=== PATIENT | female | born 1945 | race Caucasian/White ===

== ENCOUNTER 2016-02-23 13:24 | Inpatient (IN) ==
--- NOTE | 2016-02-23 13:34 | Emergency Department Note ---
Disposition Clinical Impression: HCAP (healthcare-associated pneumonia), Hyperkalemia, Hypoxia, Acute hypercapnic respiratory failure, Acute on chronic renal failure, Cellulitis of leg, left Sepsis Qualifiers: Sepsis type: sepsis due to unspecified organism Qualified Code(s): A41.9 - Sepsis, unspecified organism Disposition: Admitted As Inpatient Condition: Serious Time of Disposition: 19:01 Extremity Problem HPI - General Chief complaint: ED Fever Stated complaint: fever Time Seen by Provider: 02/23/16 13:30 Source: patient Limitations: no limitations Nursing Notes Reviewed: Yes Vital Signs Reviewed: Yes - History of Present Illness HPI Narrative: 70-year-old female presents from a custodial, history of hypercholesterolemia, recently had a fall yesterday with negative x-ray she was diagnosed with a left lower extremity cellulitis. At the time she was given a Keflex prescription told to follow-up however she did not fill the prescription. Patient had a fever or EMS her temperature was recorded at 102.1. Patient was brought in with fever, low oxygen, with no history of oxygen dependent. She is on 2 L is 92%, percent was 78% without oxygen on in the ED at triage. Patient denies shortness of breath or chest pain. Denies abdominal pain. States her left leg hurts. Has a history of frequent UTIs. Is a very limited historian secondary to her mental state. Pt Subjective Complaint: extremity pain Consistency: intermittent Injury Location: left Pain Scale: 0 Radiation: none Improves with: nothing Worsens with: nothing Associated symptoms: Reports: denies other symptoms, bowel/bladder symptoms, fever, rash, swelling (Left lower extremity). Denies: chest pain, shortness of breath, abdominal pain - Related Data Home Medications Medication Instructions Recorded Confirmed RisperiDONE [RisperDAL] 1 mg PO HS 12/20/14 12/20/14 Previous Rx's Medication Instructions Recorded Aquaphor 1 appl TP Q4HR #60 g 12/10/14 Nystatin Cream [Mycostatin Cream] 1 appl TP BID #60 g 12/10/14 Bumetanide [Bumex] 1 mg PO DAILY #30 tablet 12/31/14 RisperiDONE [RisperDAL] 1 mg PO HS #30 tablet 12/31/14 SitaGLIPtin [Januvia] 25 mg PO DAILY #30 tablet 12/31/14 Nystatin Cream [Mycostatin Cream] 1 appl TP BID #30 g 07/18/16 Cephalexin 500 mg PO BID #14 tablet 11/24/15 Cephalexin [Keflex] 500 mg PO QID 10 Days 02/22/16 Allergies Allergy/AdvReac Type Severity Reaction Status Date / Time sulfamethoxazole Allergy Rash Verified 12/26/14 03:50 [From Bactrim] trimethoprim [From Bactrim] Allergy Rash Verified 12/26/14 03:50 Review of Systems: A 14 point ROS was obtained and was negative except as per below or as documented in the HPI. Constitutional: fever, chills, weakness Denies:, weight change Eyes: Denies: eye pain, eye discharge, vision change ENT: Denies: ear pain, throat pain, hearing loss, epistaxis, congestion, Cardiovascular: Denies: chest pain, palpitations, dyspnea on exertion, edema, syncope Respiratory: Denies: cough, dyspnea, wheezes, hemoptysis, stridor Gastrointestinal: Denies: abdominal pain, nausea, vomiting. diarrhea, constipation, hematemesis, hematochezia Genitourinary: Denies: urgency, dysuria, frequency, hematuria Musculoskeletal: Denies: back pain, neck pain, arthralgia, myalgia Integumentary: left leg rash,Denies: abrasion, lesions Neurological: Denies: headache, weakness, numbness, paresthesias, confusion, abnormal gait Psychiatric: Denies: anxiety, depression, suicidal thoughts, homicidal thoughts , Endocrine: Denies: fatigue Hematological/Lymphatic: Denies: easy bleeding, easy bruising Allergic/Immunologic: Denies: facial swelling, urticaria All systems ED: reviewed and negative except as stated. Past Medical History - Past Medical History Attestation: Yes The following information was validated with the patient. 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 - Social History Smoking Status: Never smoker Smokeless Tobacco Status: No Alcohol use: Reports: none Drug use: Reports: none Physical Exam General: alert and oriented, in NAD, appears stated age, is pleasant and cooperative to exam Head: NCAT, no lesions Eyes: sclera anicteric, conjunctiva normal, PERRLA bilaterally, EOMI Bilaterally Ears: normal inspection, external ear wnl Nose: nasal septum nondeviated, sinuses nontender Throat: good dentition, mucous membranes moist Neck: no lymphadenopathy, trachea midline no deviation, no JVD Resp: Diminished breath sounds at the bases CV: RRR, normal S1 and S2, no m/g/r, Pulses +2 Rad, +2 DP/PT Abdomen: Soft, morbidly obese, nontender to palpation no hepatosplenomegaly, no hernias, Negative Rovsing's sign, Negative Oconnell's sign Back: normal inspection, no tenderness to palpation, Negative CVA tenderness bilaterally Neuro: A&O3, CN II-XII grossly intact bilaterally, no motor or sensory deficits bilaterally, gait normal, GCS 15 [id number] Ext: normal inspection, symmetric Active and Passive ROM UE and LE bilaterally , +2 pitting bilaterally Psych: normal mood, normal affect Skin: Left-sided lower extremity with anterior tibial cellulitis versus venous stasis dermatitis, skin breakdown, erythema and bruising. - General Limitations: no limitations General appearance: alert, in no apparent distress Course Course Narrative: 102.1 temperature confirmed in route. Patient is febrile, hypoxic her sat dropped to 74%, good waveform on room air. Given her hypoxia in the setting of morbid obesity and probable CHF, with venous stasis dermatitis that is in her bilateral lower extremities, but do not want to aggressively fluid overload this patient, and for that reason we will give her 2 L bolus, concern for sepsis however I do not think that she can tolerate a 30 mL per kilogram bolus which should be over 4000 L of fluid. - Reevaluation(s) Reevaluation #1: Patient with a troponin of 0.28, added aspirin. This time given her renal function will not treat with anticoagulation, concern for UTI started Vanc and Zosyn for sepsis, fever, tachycardia >90. Reevaluation #2: Evidence of persistent bilateral opacities, concerning for pneumonia, a white count but did have tachycardia heart rate greater than 90, temperature 102, started antibiotics, will BiPAP at this time also there is concern for PE as well given hypoxia, we will get a VQ scan Time: 15:00 Reevaluation #3: Did speak to Dr. Delgado, given the patient has acute on chronic respiratory failure requiring BiPAP, I did put the patient on BiPAP for approximately 40 minutes, she has been stable, sats 100% mentating well, after previous blood gases show mild acidosis that appear to be respiratory. She is treated with broad-spectrum antibiotics thank kathleen Johnson empirically for probable sepsis with source probable pneumonia given that she has opacities, she did not have white count and lactate was normal so for this reason a lactate did not need to be redrawn. Her initial fluid bolus was only 2 L given that she appears volume overloaded as questionable history of heart failure. Patient was admitted to [facility] in stable condition from the emergency department. Time: 19:02 Vital Signs Temperature 100.1 F H 02/23/16 13:26 Pulse Rate 87 02/23/16 13:26 Respiratory Rate 18 02/23/16 13:26 Blood Pressure 107/66 02/23/16 13:26 O2 Sat by Pulse Oximetry 87 L 02/23/16 13:26 Temperature 100.1 F H 02/23/16 13:26 Pulse Rate 80 02/23/16 18:04 Respiratory Rate 20 02/23/16 18:30 Blood Pressure 128/80 02/23/16 18:30 O2 Sat by Pulse Oximetry 95 02/23/16 18:04 Oxygen Delivery Oxygen Delivery Bipap Extremity Problem, Nontraumati - MDM Narrative Medical decision making narrative: 70-year-old female admitted with sepsis, acute or chronic respiratory failure, acute chronic renal failure, hyperkalemia - Differential Diagnosis Likely: superficial thrombophlebitis, deep venous thrombosis, lower extremity edema, occult trauma - Medical Records Medical records reviewed: Yes I reviewed the patient's medical records. - Lab Data Lab results reviewed: Yes I reviewed the patient's lab results. Result diagrams: 02/23/16 13:59 02/23/16 13:59 Lab Results 02/23/16 02/23/16 02/23/16 Range/Units 13:54 13:59 13:59 WBC 4.5 (4.3-11.1) K/mcL RBC 3.67 L (3.82-4.97) M/mcL Hgb 9.9 L (11.5-15.4) g/dL Hct 34.3 L (35.3-44.9) % MCV 93.5 (83.0-100.0) fL MCH 27.0 L (28.0-33.3) pg MCHC 28.9 L (31.6-35.5) g/dL RDW 15.7 H (11.5-14.5) % Plt Count 178 (140-400) K/mcL MPV 11.1 (9.4-12.4) fL Immature Gran % 0.4 (0-4) % Seg Neutrophils % 76.4 % Lymphocytes % 9.1 % Monocytes % 11.3 % Eosinophils % 2.4 % Basophils % 0.4 % Neutrophils # 3.4 (1.6-8.9) K/mcL Lymphocytes # 0.4 L (0.6-4.6) K/mcL Monocytes # 0.5 (0.0-1.3) K/mcL Eosinophils # 0.1 (0.0-0.6) K/mcL Basophils # 0.0 (0.0-0.2) K/mcL Platelet Estimate Normal (Normal) Immature Plt Fraction 4.2 (1.1-6.1) % Polychromasia 1+ A (Not Present) Hypochromasia Present A (Not Present) Anisocytosis 2+ A (Not Present) Microcytosis Present A (Not Present) Tear Drop Cells 1+ A (Not Present) PT 11.6 (9.4-12.1) Seconds INR 1.1 APTT 34.7 (26.0-36.0) Seconds ABG pH (7.32-7.45) pH Units ABG pCO2 (35-45) mmHg ABG pO2 (85-104) mmHg ABG HCO3 (21-27) mEQ/L ABG Total CO2 (20-26) mEq/L ABG O2 Saturation (95-98) % ABG Base Excess (-2.0 to 3.0) mEq/L Liter Flow L/MIN Blood Gas Modality Inspired O2 % Sodium (136-145) mEq/L Potassium (3.5-4.5) mEq/L Chloride (98-109) mEq/L Carbon Dioxide (19-29) mEq/L BUN (7-20) mg/dL Creatinine (0.57-1.11) mg/dL Est GFR ( Amer) (> 60) Est GFR (Non-Af Amer) (> 60) BUN/Creatinine Ratio (6-26) Glucose (70-99) mg/dL Calculated Osmolality (280-300) Lactic Acid (0.5-2.2) mmol/L Calcium (8.6-10.8) mg/dL Phosphorus (2.3-4.7) mg/dL Magnesium (1.6-2.6) mg/dL Total Bilirubin (0.2-1.2) mg/dL Direct Bilirubin (0.0-0.5) mg/dL Indirect Bilirubin (0.0-1.2) mg/dL AST (5-34) Units/L ALT (0-55) Units/L Alkaline Phosphatase (38-126) Units/L Troponin I 0.28 H* (0-0.03) ng/mL B-Natriuretic Peptide (0-100) pg/mL Serum Total Protein (6.0-8.3) g/dL Albumin (3.5-5.0) g/dL Globulin (2.4-3.5) g/dL Albumin/Globulin Ratio (1.1-2.2) Urine Color (Yellow) Urine Clarity (Clear) Urine pH (5.0-8.0) pH Units Ur Specific [place] (1.010-1.025) Urine Protein (Neg-Trace) mg/dL Urine Glucose (UA) (Normal) mg/dL Urine Ketones (Negative) mg/dL Urine Blood (Negative) Urine Nitrite (Negative) Urine Bilirubin (Negative) Urine Urobilinogen (Normal) mg/dL Ur Leukocyte Esterase (Negative) Urine Microscopic WBC (0-3) per hpf Ur Squamous Epith Cells (None-Few) per lpf Amorphous Sediment (Few) Urine Bacteria (None-Few) per hpf Urine Mucus (Few) Ur Culture Indicated? (NO) 02/23/16 02/23/16 02/23/16 Range/Units 13:59 13:59 13:59 WBC (4.3-11.1) K/mcL RBC (3.82-4.97) M/mcL Hgb (11.5-15.4) g/dL Hct (35.3-44.9) % MCV (83.0-100.0) fL MCH (28.0-33.3) pg MCHC (31.6-35.5) g/dL RDW (11.5-14.5) % Plt Count (140-400) K/mcL MPV (9.4-12.4) fL Immature Gran % (0-4) % Seg Neutrophils % % Lymphocytes % % Monocytes % % Eosinophils % % Basophils % % Neutrophils # (1.6-8.9) K/mcL Lymphocytes # (0.6-4.6) K/mcL Monocytes # (0.0-1.3) K/mcL Eosinophils # (0.0-0.6) K/mcL Basophils # (0.0-0.2) K/mcL Platelet Estimate (Normal) Immature Plt Fraction (1.1-6.1) % Polychromasia (Not Present) Hypochromasia (Not Present) Anisocytosis (Not Present) Microcytosis (Not Present) Tear Drop Cells (Not Present) PT (9.4-12.1) Seconds INR APTT (26.0-36.0) Seconds ABG pH (7.32-7.45) pH Units ABG pCO2 (35-45) mmHg ABG pO2 (85-104) mmHg ABG HCO3 (21-27) mEQ/L ABG Total CO2 (20-26) mEq/L ABG O2 Saturation (95-98) % ABG Base Excess (-2.0 to 3.0) mEq/L Liter Flow L/MIN Blood Gas Modality Inspired O2 % Sodium 143 (136-145) mEq/L Potassium 6.1 H D (3.5-4.5) mEq/L Chloride 109 (98-109) mEq/L Carbon Dioxide 24 (19-29) mEq/L BUN 34 H (7-20) mg/dL Creatinine 1.77 H (0.57-1.11) mg/dL Est GFR ( Amer) 35 L (> 60) Est GFR (Non-Af Amer) 29 L (> 60) BUN/Creatinine Ratio 19 (6-26) Glucose 99 (70-99) mg/dL Calculated Osmolality 304 H (280-300) Lactic Acid 1.6 (0.5-2.2) mmol/L Calcium 9.4 (8.6-10.8) mg/dL Phosphorus 5.1 H (2.3-4.7) mg/dL Magnesium 2.4 (1.6-2.6) mg/dL Total Bilirubin 0.3 (0.2-1.2) mg/dL Direct Bilirubin 0.1 (0.0-0.5) mg/dL Indirect Bilirubin 0.2 (0.0-1.2) mg/dL AST 22 (5-34) Units/L ALT 6 (0-55) Units/L Alkaline Phosphatase 113 (38-126) Units/L Troponin I (0-0.03) ng/mL B-Natriuretic Peptide 378 H (0-100) pg/mL Serum Total Protein 7.2 (6.0-8.3) g/dL Albumin 3.2 L (3.5-5.0) g/dL Globulin 4.0 H (2.4-3.5) g/dL Albumin/Globulin Ratio 0.8 L (1.1-2.2) Urine Color (Yellow) Urine Clarity (Clear) Urine pH (5.0-8.0) pH Units Ur Specific [place] (1.010-1.025) Urine Protein (Neg-Trace) mg/dL Urine Glucose (UA) (Normal) mg/dL Urine Ketones (Negative) mg/dL Urine Blood (Negative) Urine Nitrite (Negative) Urine Bilirubin (Negative) Urine Urobilinogen (Normal) mg/dL Ur Leukocyte Esterase (Negative) Urine Microscopic WBC (0-3) per hpf Ur Squamous Epith Cells (None-Few) per lpf Amorphous Sediment (Few) Urine Bacteria (None-Few) per hpf Urine Mucus (Few) Ur Culture Indicated? (NO) 02/23/16 02/23/16 02/23/16 Range/Units 14:19 14:26 15:30 WBC (4.3-11.1) K/mcL RBC (3.82-4.97) M/mcL Hgb (11.5-15.4) g/dL Hct (35.3-44.9) % MCV (83.0-100.0) fL MCH (28.0-33.3) pg MCHC (31.6-35.5) g/dL RDW (11.5-14.5) % Plt Count (140-400) K/mcL MPV (9.4-12.4) fL Immature Gran % (0-4) % Seg Neutrophils % % Lymphocytes % % Monocytes % % Eosinophils % % Basophils % % Neutrophils # (1.6-8.9) K/mcL Lymphocytes # (0.6-4.6) K/mcL Monocytes # (0.0-1.3) K/mcL Eosinophils # (0.0-0.6) K/mcL Basophils # (0.0-0.2) K/mcL Platelet Estimate (Normal) Immature Plt Fraction (1.1-6.1) % Polychromasia (Not Present) Hypochromasia (Not Present) Anisocytosis (Not Present) Microcytosis (Not Present) Tear Drop Cells (Not Present) PT (9.4-12.1) Seconds INR APTT (26.0-36.0) Seconds ABG pH 7.27 L 7.24 L (7.32-7.45) pH Units ABG pCO2 63 H 69 H (35-45) mmHg ABG pO2 69 L 90 (85-104) mmHg ABG HCO3 28.9 H 29.6 H (21-27) mEQ/L ABG Total CO2 30.8 H 31.7 H (20-26) mEq/L ABG O2 Saturation 91 L 95 (95-98) % ABG Base Excess 1.0 1.1 (-2.0 to 3.0) mEq/L Liter Flow 4 L/MIN Blood Gas Modality NC BIPAP Inspired O2 36 40 % Sodium (136-145) mEq/L Potassium (3.5-4.5) mEq/L Chloride (98-109) mEq/L Carbon Dioxide (19-29) mEq/L BUN (7-20) mg/dL Creatinine (0.57-1.11) mg/dL Est GFR ( Amer) (> 60) Est GFR (Non-Af Amer) (> 60) BUN/Creatinine Ratio (6-26) Glucose (70-99) mg/dL Calculated Osmolality (280-300) Lactic Acid (0.5-2.2) mmol/L Calcium (8.6-10.8) mg/dL Phosphorus (2.3-4.7) mg/dL Magnesium (1.6-2.6) mg/dL Total Bilirubin (0.2-1.2) mg/dL Direct Bilirubin (0.0-0.5) mg/dL Indirect Bilirubin (0.0-1.2) mg/dL AST (5-34) Units/L ALT (0-55) Units/L Alkaline Phosphatase (38-126) Units/L Troponin I (0-0.03) ng/mL B-Natriuretic Peptide (0-100) pg/mL Serum Total Protein (6.0-8.3) g/dL Albumin (3.5-5.0) g/dL Globulin (2.4-3.5) g/dL Albumin/Globulin Ratio (1.1-2.2) Urine Color Yellow (Yellow) Urine Clarity Cloudy A (Clear) Urine pH 5.5 (5.0-8.0) pH Units Ur Specific [place] 1.028 H (1.010-1.025) Urine Protein 30 H (Neg-Trace) mg/dL Urine Glucose (UA) Normal (Normal) mg/dL Urine Ketones Negative (Negative) mg/dL Urine Blood Negative (Negative) Urine Nitrite Negative (Negative) Urine Bilirubin Small H (Negative) Urine Urobilinogen Normal (Normal) mg/dL Ur Leukocyte Esterase Negative (Negative) Urine Microscopic WBC 0-3 (0-3) per hpf Ur Squamous Epith Cells Moderate H (None-Few) per lpf Amorphous Sediment Few (Few) Urine Bacteria Moderate H (None-Few) per hpf Urine Mucus Few (Few) Ur Culture Indicated? NO (NO) 02/23/16 Range/Units 17:51 WBC (4.3-11.1) K/mcL RBC (3.82-4.97) M/mcL Hgb (11.5-15.4) g/dL Hct (35.3-44.9) % MCV (83.0-100.0) fL MCH (28.0-33.3) pg MCHC (31.6-35.5) g/dL RDW (11.5-14.5) % Plt Count (140-400) K/mcL MPV (9.4-12.4) fL Immature Gran % (0-4) % Seg Neutrophils % % Lymphocytes % % Monocytes % % Eosinophils % % Basophils % % Neutrophils # (1.6-8.9) K/mcL Lymphocytes # (0.6-4.6) K/mcL Monocytes # (0.0-1.3) K/mcL Eosinophils # (0.0-0.6) K/mcL Basophils # (0.0-0.2) K/mcL Platelet Estimate (Normal) Immature Plt Fraction (1.1-6.1) % Polychromasia (Not Present) Hypochromasia (Not Present) Anisocytosis (Not Present) Microcytosis (Not Present) Tear Drop Cells (Not Present) PT (9.4-12.1) Seconds INR APTT (26.0-36.0) Seconds ABG pH (7.32-7.45) pH Units ABG pCO2 (35-45) mmHg ABG pO2 (85-104) mmHg ABG HCO3 (21-27) mEQ/L ABG Total CO2 (20-26) mEq/L ABG O2 Saturation (95-98) % ABG Base Excess (-2.0 to 3.0) mEq/L Liter Flow L/MIN Blood Gas Modality Inspired O2 % Sodium (136-145) mEq/L Potassium (3.5-4.5) mEq/L Chloride (98-109) mEq/L Carbon Dioxide (19-29) mEq/L BUN (7-20) mg/dL Creatinine (0.57-1.11) mg/dL Est GFR ( Amer) (> 60) Est GFR (Non-Af Amer) (> 60) BUN/Creatinine Ratio (6-26) Glucose (70-99) mg/dL Calculated Osmolality (280-300) Lactic Acid 0.8 (0.5-2.2) mmol/L Calcium (8.6-10.8) mg/dL Phosphorus (2.3-4.7) mg/dL Magnesium (1.6-2.6) mg/dL Total Bilirubin (0.2-1.2) mg/dL Direct Bilirubin (0.0-0.5) mg/dL Indirect Bilirubin (0.0-1.2) mg/dL AST (5-34) Units/L ALT (0-55) Units/L Alkaline Phosphatase (38-126) Units/L Troponin I (0-0.03) ng/mL B-Natriuretic Peptide (0-100) pg/mL Serum Total Protein (6.0-8.3) g/dL Albumin (3.5-5.0) g/dL Globulin (2.4-3.5) g/dL Albumin/Globulin Ratio (1.1-2.2) Urine Color (Yellow) Urine Clarity (Clear) Urine pH (5.0-8.0) pH Units Ur Specific [place] (1.010-1.025) Urine Protein (Neg-Trace) mg/dL Urine Glucose (UA) (Normal) mg/dL Urine Ketones (Negative) mg/dL Urine Blood (Negative) Urine Nitrite (Negative) Urine Bilirubin (Negative) Urine Urobilinogen (Normal) mg/dL Ur Leukocyte Esterase (Negative) Urine Microscopic WBC (0-3) per hpf Ur Squamous Epith Cells (None-Few) per lpf Amorphous Sediment (Few) Urine Bacteria (None-Few) per hpf Urine Mucus (Few) Ur Culture Indicated? (NO) - Radiology Data Radiology results reviewed: Yes I reviewed the patient's radiology results. Chest X-Ray 02/23/16 13:31 IMPRESSION: 1. Persistent interstitial opacities bilaterally, potentially interstitial edema or pneumonia. 2. Right basilar atelectasis and/or scarring. D/ / Gary Boggs MD / Gary Boggs MD Interpreting Provider: Gary Boggs MD Pulmonary Perfusion Imaging 02/23/16 14:40 IMPRESSION: Low Probability for Pulmonary Embolus. D/ / Fredis Claudio MD / Fredis Claudio MD Interpreting Provider: Fredis Claudio MD - EKG Data EKG attestation: Yes I reviewed and interpreted this EKG. EKG shows normal: sinus rhythm Rate: normal (8 bpm MI 171 QRS 82 QTC 359) Rhythm: NSR [place]/QRS: normal Interpretation: no acute changes, unchanged when compared to prior tracing (date ) (Previous EKG reviewed on November 2015) - Core Measures AMI Core Measures Followed: No Measure Exclusions: not indicated Critical Care Time Critical Care Time: Yes Total Critical Care Time: 40 Attestation: Critical care performed: Time is exclusive of separately billable procedures. Time includes: direct patient care, patient reassessment, coordination of patient care, interpretation of data (laboratory data, radiology data, and respiratory data), review of patient's medical records, medical consultation and documentation of patient care. Procedures included in critical care time: Procedures excluded from critical care time: Attestation Statement - Attestation Attestation: I examined this patient and my medical decision-making was reviewed with the FINGERNAIL FORMER/PA/Advanced Practice Nurse/Resident Physician. I agree with the documented findings, disposition and treatment plan as described except to the extent set forth below. Patient presents to the emergency Department not feeling well. Fever. Seen here yesterday after a fall. Diagnosed with cellulitis. Has not yet better anabiotic. Called EMS because she was not feeling well. Per EMS patient has a temperature 102. She is noted to be hypoxic in the 70s. Lungs just diminished. Plan. Patient afebrile hypoxic. Infiltrate on chest x-rays. Renal function is worsening. Septic workup. She started on broad-spectrum antibiotic. She is given 2 L fluid bolus. She was not given her 30 ml/kg bolus as she has a history of CHF and we felt 4 liters of fluid was was too much fluid for her. Patient will be admitted to medicine.
[2016-02-23 14:08] LABS: Basophils % 0.4 %; Eosinophils % 2.4 %; Mean Corpuscular HGB Conc 28.9 g/dL (31.6-35.5)
[2016-02-23] MEDS: 0.9 % Sodium Chloride 1,000 ML IVC SCH ×2 (14:08→15:41)
[2016-02-23 14:11] LABS: Eosinophils # 0.1 K/mcL (0.0-0.6); Hematocrit 34.3 % (35.3-44.9); Hemoglobin 9.9 g/dL (11.5-15.4); Immature Granulocytes % 0.4 % (0-4); Immature Platelets 4.2 % (1.1-6.1); Lymphocytes # 0.4 K/mcL (0.6-4.6); Lymphocytes % 9.1 %; Mean Corpuscular Volume 93.5 fL (83.0-100.0); Mean Platelet Volume 11.1 fL (9.4-12.4); Monocytes # 0.5 K/mcL (0.0-1.3); Monocytes % 11.3 %; Neutrophils # 3.4 K/mcL (1.6-8.9); Platelet Count 178 K/mcL (140-400); Red Blood Count 3.67 M/mcL (3.82-4.97); Red Cell Distribution Width 15.7 % (11.5-14.5); Segmented Neutrophils % 76.4 %
[2016-02-23 14:13] LABS: INR 1.1; Prothrombin Time 11.6 Seconds (9.4-12.1)
[2016-02-23 14:16] LABS: Activated Partial Thrombo Time 34.7 Seconds (26.0-36.0)
[2016-02-23 14:24] LABS: Albumin 3.2 g/dL (3.5-5.0); Albumin/Globulin Ratio 0.8 (1.1-2.2); Bilirubin,Direct 0.1 mg/dL (0.0-0.5); Bilirubin,Indirect 0.2 mg/dL (0.0-1.2); Bilirubin,Total 0.3 mg/dL (0.2-1.2); Calcium 9.4 mg/dL (8.6-10.8); Magnesium 2.4 mg/dL (1.6-2.6); Phosphorous 5.1 mg/dL (2.3-4.7); Total Protein 7.2 g/dL (6.0-8.3)
[2016-02-23 14:26] LABS: Potassium 6.1 mEq/L (3.5-4.5)
[2016-02-23] MEDS ORDERED: Sodium Bicarbonate 50 MEQ/50 ML VIAL IVP ONE (14:30)
[2016-02-23] MEDS ORDERED: Calcium Gluconate 1,000 MG in D5% in Water 100 ML IVPB ONE (14:30)
[2016-02-23] MEDS ORDERED: Aspirin 81 MG TAB.CHEW PO ONE (14:33)
[2016-02-23 14:35] LABS: ABG HCO3 28.9 mEQ/L (21-27); ABG Oxygen Saturation 91 % (95-98); ABG PCO2 63 mmHg (35-45); ABG PH 7.27 pH Units (7.32-7.45); ABG PO2 69 mmHg (85-104); ABG TCO2 30.8 mEq/L (20-26); Blood Gas FiO2 36 %; Blood Gas Liter Flow 4 L/MIN
[2016-02-23 14:35] LABS: Anisocytosis 2+ (Not Present); Hypochromasia Present (Not Present); Microcytosis Present (Not Present); Platelet Estimate Normal (Normal); Polychromasia 1+ (Not Present); Tear Drop Cells 1+ (Not Present)
[2016-02-23] MEDS ORDERED: Vancomycin 1,000 MG in D5% in Water 250 ML IVPB ONE ×2 (14:35→20:00)
[2016-02-23] MEDS ORDERED: Piperacillin/Tazobactam 3.375 GM in D5% in Water (Mini-Bag+) 100 ML IVPB ONE (14:35)
[2016-02-23 14:39] LABS: Bilirubin,Urine Small (Negative); Blood,Urine Negative (Negative); Clarity,Urine Cloudy (Clear); Color,Urine Yellow (Yellow); Glucose,Urine (UA) Normal (Normal); Ketones,Urine Negative (Negative); Leukocyte Esterase,Urine Negative (Negative); Nitrite,Urine Negative (Negative); PH,Urine 5.5 pH Units (5.0-8.0); Protein,Urine 30 mg/dL (Neg-Trace); Specific Gravity,Urine 1.028 (1.010-1.025); Urobilinogen,Urine Normal (Normal)
[2016-02-23 14:51] LABS: Amorphous Sediment,Urine Few (Few); Bacteria,Urine Moderate per hpf (None-Few); Mucus,Urine Few (Few); Squamous Epithelial Cell,Urine Moderate per lpf (None-Few); WBC,Urine 0-3 per hpf (0-3)
[2016-02-23 15:38] LABS: ABG Base Excess 1.1 mEq/L (-2.0 to 3.0); ABG HCO3 29.6 mEQ/L (21-27); ABG Oxygen Saturation 95 % (95-98); ABG PCO2 69 mmHg (35-45); ABG PH 7.24 pH Units (7.32-7.45); ABG PO2 90 mmHg (85-104); ABG TCO2 31.7 mEq/L (20-26)
[2016-02-23 15:39] LABS: Blood Gas FiO2 40 %
[2016-02-23] MEDS ORDERED: Ondansetron 4 MG/2 ML VIAL IVP PRN (19:10)
[2016-02-23] MEDS ORDERED: Naloxone 0.4 MG/ML INJ IVP PRN (19:10)
[2016-02-23] MEDS ORDERED: Albuterol 2.5 MG/3 ML NEBULIZER IH PRN (19:26)
[2016-02-23] MEDS ORDERED: Dextrose Gel 15 GM PO PRN ×2 (19:33)
[2016-02-23] MEDS ORDERED: *HR* Dextrose 50 % in Water (Syg) 50 ML SYRINGE IVP PRN (19:33)
[2016-02-23] MEDS ORDERED: D5% in Water 1,000 ML IV PRN (19:33)
--- NOTE | 2016-02-23 20:07 | Internal Med History&Physical ---
Date of Encounter: 02/23/16 Time of Encounter: 19:00 Assessment and Plan (1) Acute respiratory failure with hypoxia and hypercapnia Current visit: Yes Status: Acute 1 patient presented with hypoxia SPO2 78% on room air was placed on BiPAP and is due to improved to 94% initial ABG with pH 7.27 CO2 63 O2 sats 91 She did have fever x-ray suspicious for pneumonia/CHF. We will continue with oxygen support and wean to maintain SPO2 greater than 92% 2 place on continuous spo2 to monitoring 3 bronchodilators as needed antibiotics and Lasix will recheck x-ray in a.m. (2) SIRS (systemic inflammatory response syndrome) Current visit: Yes Status: Acute 1 patient presented with elevated temperature hypoxia suspect pneumonia lactate was 0.8 no elevation in white count will obtain CRP continue with antibiotics and monitor CBC-blood cultures obtained urine cultures obtained wound cultures obtained suspect related to pneumonia (3) DM type 2 (diabetes mellitus, type 2) Current visit: Yes Status: Acute 1 presently controlled with continue with Accu-Cheks before meals at bedtime signs go insulin as needed goal is to maintain first pain or less than 180 Qualifiers: Diabetes mellitus complication status: with kidney complications Diabetes mellitus complication detail: with chronic kidney disease Diabetes mellitus ferry terminal agent insulin use: unspecified penitentiary insulin use status Chronic kidney disease stage: stage 3 (moderate) Qualified Code(s): E11.22 - Type 2 diabetes mellitus with diabetic chronic kidney disease; N18.3 - Chronic kidney disease, stage 3 (moderate) (4) CKD (chronic kidney disease) stage 3, GFR 30-59 ml/min Current visit: No Status: Chronic 1 creatinine 1.7. Baselines around 2. We will continue to monitor creatinine 2 we will avoid nephrotoxins and renally dose antibiotics 3 monitor intake and output daily weights (6) DVT prophylaxis Current visit: Yes Status: Acute Heparin subcutaneous (7) CHF (congestive heart failure) Current visit: Yes Status: Acute 1 last echo was November 2014 EF 70% at that time with mild diastolic dysfunction -we will obtain echo 2 we will administer Lasix 4 doses 3 we will monitor intake and output daily weight 4 sodium diet 5 Will recheck x-ray in a.m. outpatient diuresis Qualifiers: Congestive heart failure type: diastolic Congestive heart failure chronicity: unspecified congestive heart failure chronicity Qualified Code(s) : I50.30 - Unspecified diastolic (congestive) heart failure (8) Community acquired pneumonia Current visit: Yes Status: Acute 1 she presented with fever and hypoxia no elevation of white count , denies any cough or sputum production or cultures are obtained we will continue with Rocephin and doxycycline 2 monitor CBC 3 we will continue with oxygen support to maintain SPO2 greater than 92% 4 bronchodilators (9) Cellulitis of leg, left Current visit: Yes Status: Acute 1 left leg is red with skin tear she does have a fever no elevation in white count. The cultures have been obtained wound cultures been obtained we will continue with antibiotics (10) Hyperkalemia Current visit: Yes Status: Acute 1 potassium is 6 I suspect this is hemolyzed we will recheck potassium Internal Medicine - H&P: HPI Chief complaint: Fever Admitted From: Home Plans for Post Hospital Care: Home History of present illness: Ms. Madera is a 70 year old female past medical history see Krista stage III diabetes hyperlipidemia hypertension MRDD. The patient is not a reliable historian due to her mental disability. Information is obtained from medical records. According to the ER record the patient resides in a [facility] she had a fall yesterday during her left leg and was sent to an urgent care. She had negative x-ray however she was diagnosed with left lower extremity cellulitis and was prescribed Keflex which patient did not fell. Today the patient experienced a fever when EMS arrived they recorded her temperature is 102.1. She also had a low oxygen saturation patient is not a history of oxygen dependency. She was brought to the emergency department for further workup and evaluation. Upon presentation to the ER her SPO2 was 98% on 2 L without oxygen she was 78 %. This recorded that the patient denies any shortness of breath or chest pain abdominal pain urinary complaints she does complain of her left leg hurting. According to ER records the patient's temperature was confirmed as 102 she was hypoxic concern for CHF as well as pneumonia and cellulitis she was given a limited fluid bolus blood cultures were obtained she was started on Vanco and Zosyn. Lactic acid 1.6 troponin 0.28 BNP 378 Initial ABG pH 7.27 PCO2 63 PO2 69 bicarbonate 28.9 O2 sats 91 this was on 4 L nasal cannula. She was placed on BiPAP oxygen saturation improved chest x-ray revealed persistent interstitial opacities bilaterally potential interstitial edema or pneumonia. VQ scan was obtained which was low probability for PE white count was 4.5 BUN is 34 creatinine 1.77 potassium 6.1. She is admitted for further workup and evaluation. Presently upon assessment patient does not appear to be in any respiratory distress breathing comfortably on BiPAP no tachypnea noted sats stable at 97% no tachycardia and blood pressure stable. She is alert and oriented to name, able to follow simple directions however is not cooperative at times. She denies any chest pain or shortness of breath her only complaint is that her left leg hurts and she would like Tylenol. Lungs sounds are diminished . I reviewed case with agrees with plan. Past Med Surg Social Fam HX - Past Medical History Medical history: diabetes, hyperlipidemia, hypertension, osteoporosis, other Psychiatric history: anxiety, depression - Past Surgical History Surgical History: cholecystectomy - Social History Smoking Status: Never smoker Smokeless Tobacco Status: No Alcohol use: none Drug use: none Internal Medicine - H&P: Meds Aquaphor 1 appl TP Q4HR #60 g 12/10/14 [Rx] Nystatin Cream [Mycostatin Cream] 1 appl TP BID #60 g 12/10/14 [Rx] RisperiDONE [RisperDAL] 1 mg PO HS 12/20/14 [History] Bumetanide [Bumex] 1 mg PO DAILY #30 tablet 12/31/14 [Rx] RisperiDONE [RisperDAL] 1 mg PO HS #30 tablet 12/31/14 [Rx] SitaGLIPtin [Januvia] 25 mg PO DAILY #30 tablet 12/31/14 [Rx] Nystatin Cream [Mycostatin Cream] 1 appl TP BID #30 g 09/09/15 [Rx] Cephalexin 500 mg PO BID #14 tablet 11/24/15 [Rx] Cephalexin [Keflex] 500 mg PO QID 10 Days 02/22/16 [Rx] Allergies sulfamethoxazole [From Bactrim] Allergy (Verified 12/26/14 03:50) Rash trimethoprim [From Bactrim] Allergy (Verified 12/26/14 03:50) Rash ROS unobtainable: other All Systems PM: A 10-system review of systems was performed and is negative for pertinent findings except as documented above in the HPI. Review of systems: Due to MRDD - Constitutional Vitals: Temp Pulse Resp BP Pulse Ox 100.1 F H 80 20 128/80 95 02/23/16 13:26 02/23/16 18:04 02/23/16 18:30 02/23/16 18:30 02/23/16 18:04 General appearance: Present: A&O X 1, morbidly obese, pleasant - Head Head exam: Present: atraumatic, normocephalic - Eye Eye exam: Present: PERRL, conjuntiva pink, sclera anicteric Pupils: Present: PERRL - Respiratory Respiratory exam: Present: decreased breath sounds, CTAB. Absent: accessory muscle use, rales, rhonchi, wheezes - Cardiovascular Cardiovascular exam: Present: RRR, +S1, +S2. Absent: diastolic murmur, gallop, rubs, systolic murmur - GI/Abdominal GI/Abdominal exam: Present: normal bowel sounds, soft, no peritoneal signs. Absent: distended, tenderness - Extremities Exam Extremities exam: Present: warm, radial pulses palpable and symetrical. Absent : calf tenderness, cyanotic, pedal edema Additional comments: Skin tear noted to left laird with surrounding erythema - Neurological Exam Neurological exam: Present: no focal deficits. Absent: pronater drift, facial droop, speech deficit Additional comments: Patient is not cooperative during exam - Skin Skin exam: Present: dry, erythema, intact Additional comments: Erythemic area to left lower leg Internal Med - H&P Results - Labs CBC & Chem 7: 02/23/16 13:59 02/23/16 19:52 - ABG Interpretation ABG results: PH 7.27 PCO2 63 PO2 69 bicarbonate 28.902 saturation 91 on 4 L nasal cannula Repeat ABG 7.246 PCO2 69 PO2 is 90 bicarbonate 29.602 saturation 95 on BiPAP Interpretation: respiratory acidosis - EKG Data EKG shows normal: sinus rhythm Rate: normal - EKG Data Prior EKG available for review: yes When compared to previous EKG: there is no significant change - Diagnostic Studies Chest x-ray Additional comments: 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
[2016-02-23 20:09] LABS: Potassium 5.2 mEq/L (3.5-4.5)
[2016-02-23] MEDS: Furosemide 40 MG/4 ML VIAL IVP SCH (20:42)
[2016-02-23] MEDS: Acetaminophen 325 MG TABLET PO PRN (20:42)
[2016-02-23] MEDS: Insulin LISPRO 300 UNITS/3 ML VIAL SQ SCH (20:50)
[2016-02-23] MEDS: Ipratropium/Albuterol Neb 3 ML IH SCH (23:31)
[2016-02-24] MEDS ORDERED: Piperacillin/Tazobactam 3.375 GM in D5% in Water (Mini-Bag+) 100 ML IVPB SCH (02:00)
[2016-02-24] MEDS: *HR* Heparin 5,000 UNIT/ML VIAL SQ SCH ×2 (05:04→17:52)
[2016-02-24] MEDS: Ipratropium/Albuterol Neb 3 ML IH SCH ×4 (05:07→22:53)
[2016-02-24] MEDS ORDERED: Doxycycline 100 MG in 0.9 % Sodium Chloride Mini Bag 100 ML IVPB SCH (06:00)
[2016-02-24 06:25] LABS: Hemoglobin 9.7 g/dL (11.5-15.4); Immature Granulocytes % 0.7 % (0-4); Mean Corpuscular Volume 93.8 fL (83.0-100.0); Platelet Count 148 K/mcL (140-400)
[2016-02-24 06:26] LABS: Basophils % 0.7 %; Eosinophils # 0.2 K/mcL (0.0-0.6); Eosinophils % 5.6 %; Hematocrit 33.3 % (35.3-44.9); Lymphocytes # 0.5 K/mcL (0.6-4.6); Lymphocytes % 18.4 %; Mean Corpuscular HGB Conc 29.1 g/dL (31.6-35.5); Mean Corpuscular Hemoglobin 27.3 pg (28.0-33.3); Monocytes # 0.4 K/mcL (0.0-1.3); Monocytes % 14.2 %; Red Blood Count 3.55 M/mcL (3.82-4.97); Red Cell Distribution Width 15.8 % (11.5-14.5); Segmented Neutrophils % 60.4 %
[2016-02-24 06:27] LABS: Calcium 8.9 mg/dL (8.6-10.8)
[2016-02-24 06:57] LABS: Neutrophils # 1.8 K/mcL (1.6-8.9)
[2016-02-24 07:48] LABS: Acinetobacter baumannii by PCR Not Detected (Not Detect); Candida albicans by PCR Not Detected (Not Detect); Candida glabrata by PCR Not Detected (Not Detect); Candida krusei by PCR Not Detected (Not Detect); Candida parapsilosis by PCR Not Detected (Not Detect); Candida tropicalis by PCR Not Detected (Not Detect); Enterococcus by PCR Not Detected (Not Detect); Escherichia coli by PCR Not Detected (Not Detect); Klebsiella oxytoca by PCR Not Detected (Not Detect); Klebsiella pneumoniae by PCR Not Detected (Not Detect); Pseudomonas aeruginosa by PCR Not Detected (Not Detect); Serratia marcescens by PCR Not Detected (Not Detect); Staphylococcus aureus by PCR Not Detected (Not Detect); Streptococcus agalactiae(B)PCR Not Detected (Not Detect); Streptococcus by PCR Not Detected (Not Detect); Streptococcus pneumoniae PCR Not Detected (Not Detect); Streptococcus pyogenes (A) PCR Not Detected (Not Detect); blaKPC Carbapenem-Resist Gene Not Detected (Not Detect); mecA Methicillin-Resist Gene ***DETECTED*** (Not Detect); vanA/B Vancomycin-Resist Genes Not Detected (Not Detect)
[2016-02-24 07:57] LABS: Anisocytosis 1+ (Not Present); Hypochromasia Present (Not Present); Platelet Estimate Normal (Normal)
[2016-02-24] MEDS ORDERED: Vancomycin (wt based) 1,000 MG VIAL IVPB SCH ×2 (08:00→09:00)
[2016-02-24] MEDS: Insulin LISPRO 300 UNITS/3 ML VIAL SQ SCH ×4 (09:33→19:45)
[2016-02-24] MEDS: Furosemide 40 MG/4 ML VIAL IVP SCH ×2 (09:33→19:54)
[2016-02-24] MEDS: Acetaminophen 325 MG TABLET PO PRN ×2 (12:12→19:53)
[2016-02-24] MEDS: Vancomycin 1,750 MG in D5% in Water 500 ML IVPB SCH (12:13)
--- NOTE | 2016-02-24 14:37 | Electrocardiograph Report ---
[facility] Test Date: 2016-02-23 Pat Name: Juwan Madera Department: 105 Room: 2N15 Gender: F [employer]ist: : 1945 Requested By: Jesse Scanlon Order Number: [id number] Reading MD: Kwabena Fall MD Measurements Intervals [place] Rate: 89 P: 27 ND: 171 QRS: 20 QRSD: 82 T: 15 QT: 313 QTc: 359 Interpretive Statements SINUS RHYTHM BASELINE ARTIFACT Electronically Signed On 02-24-16 14:36:29 EST by Kwabena Fall MD
--- NOTE | 2016-02-24 16:53 | Internal Med Progress Note ---
Date of Encounter: 02/24/16 Time of Encounter: 11:00 - Assessment and plan (1) Acute hypercapnic respiratory failure Current Visit: Yes Status: Acute Assessment and plan: Improved repeat ABG BiPAP standby (2) CHF (congestive heart failure) Current Visit: Yes Status: Chronic Assessment and plan: Chronic, not in exacerbation Qualifiers: Congestive heart failure type: diastolic Congestive heart failure chronicity: unspecified congestive heart failure chronicity Qualified Code(s) : I50.30 - Unspecified diastolic (congestive) heart failure (3) Cellulitis of leg, left Current Visit: Yes Status: Acute Assessment and plan: Continue Vanco Follow final culture-blood and wound (4) DM type 2 (diabetes mellitus, type 2) Current Visit: Yes Status: Chronic Assessment and plan: SSI Qualifiers: Diabetes mellitus complication status: with kidney complications Diabetes mellitus complication detail: with chronic kidney disease Diabetes mellitus penitentiary insulin use: unspecified penitentiary insulin use status Chronic kidney disease stage: stage 3 (moderate) Qualified Code(s): E11.22 - Type 2 diabetes mellitus with diabetic chronic kidney disease; N18.3 - Chronic kidney disease, stage 3 (moderate) (5) Hyperkalemia Current Visit: Yes Status: Acute Assessment and plan: Kayexelate po Rpt Chem a.m (6) Sepsis Current Visit: Yes Status: Acute Assessment and plan: MRA bacteremia with sepsis, Fever and tachycardia on admission, now afebrile Source most likely left leg cellulitis Vanco (pharmacy dosed) BP WNL Lactate WNL Qualifiers: Sepsis type: methicillin resistant Staphylococcus aureus Qualified Code(s) : A41.02 - Sepsis due to Methicillin resistant Staphylococcus aureus (7) CKD (chronic kidney disease) stage 3, GFR 30-59 ml/min Current Visit: Yes Status: Chronic Assessment and plan: Cr back at baseline (8) Hypertension Current Visit: Yes Status: Chronic Qualifiers: Hypertension type: essential hypertension Qualified Code(s): I10 - Essential (primary) hypertension - Subjective Interval history: 70 Y/O F admitted or management of acute respiratory failure , sepsis She has a PMH of MRDR, Hypothyroidism, HLD, HTN, Blood culture this morning significant for MRSA bacteremia Source is most likely right lower extremity cellulitis Patient CXR with no infiltrates Seen at bedside, no new complains Patient denies any indwelling metals/rods, no IVDA, no PICC lines She also denies urinary symptoms - Constitutional Vitals: Temp Pulse Resp BP Pulse Ox 99.3 F 75 16 114/69 98 02/24/16 16:22 02/24/16 16:22 02/24/16 16:28 02/24/16 16:22 02/24/16 16:28 General appearance: Present: A&O X 1, morbidly obese, pleasant, no acute distress, obese - Head Head exam: Present: atraumatic, normocephalic - Eye Eye exam: Present: PERRL, conjuntiva pink, sclera anicteric Pupils: Present: PERRL - Neck Neck exam general surgery: Present: supple, trachea midline. Absent: lymphadenopathy - Respiratory Respiratory exam: Present: CTAB. Absent: accessory muscle use, rales, rhonchi, wheezes - Cardiovascular Cardiovascular exam: Present: RRR, +S1, +S2. Absent: diastolic murmur, gallop, rubs, systolic murmur - GI/Abdominal GI/Abdominal exam: Present: normal bowel sounds, soft, no peritoneal signs. Absent: distended, tenderness - Extremities Exam Additional comments: Left leg in wound dressing - Neurological Exam Neurological exam: Present: CN II-XII intact, no focal deficits. Absent: pronater drift, facial droop, speech deficit - Skin Skin exam: Present: dry Internal Medicine: Result - Labs CBC & Chem 7: 02/24/16 05:22 02/24/16 05:22 Labs: Short CBC 02/24/16 Range/Units 05:22 WBC 2.9 L (4.3-11.1) K/mcL Hgb 9.7 L (11.5-15.4) g/dL Hct 33.3 L (35.3-44.9) % Plt Count 148 (140-400) K/mcL Neutrophils # 1.8 (1.6-8.9) K/mcL BMP 02/23/16 02/24/16 19:52 05:22 Sodium 145 Potassium 5.2 H 5.0 H Chloride 110 H Carbon Dioxide 25 BUN 36 H Creatinine 2.19 H Glucose 98 Calcium 8.9 - ABG Interpretation ABG results: ABG ABG pH 7.24 pH Units (7.32-7.45) L 02/23/16 15:30 ABG pCO2 69 mmHg (35-45) H 02/23/16 15:30 ABG pO2 90 mmHg (85-104) 02/23/16 15:30 ABG O2 Saturation 95 % (95-98) 02/23/16 15:30 PT/INR, D-dimer PT 11.6 Seconds (9.4-12.1) 02/23/16 13:59 - Impressions Impressions Chest X-Ray 02/24/16 07:00 IMPRESSION: Low lung volumes persist. D/ / Patrick Bustos MD / Patrick Bustos MD Interpreting Provider: Patrick Bustos MD Consult Discharge Plan - Plan Referrals: VISITING, PHYSCIANS [Other] (THIS DOCTOR GOES TO THE [facility] TO SEE PATIENT)
[2016-02-24 17:46] LABS: ABG HCO3 32.2 mEQ/L (21-27); ABG Oxygen Saturation 96 % (95-98); ABG PCO2 67 mmHg (35-45); ABG PH 7.29 pH Units (7.32-7.45); ABG PO2 90 mmHg (85-104); ABG TCO2 34.3 mEq/L (20-26)
[2016-02-24 17:47] LABS: Blood Gas FiO2 36 %
[2016-02-24] MEDS: risperiDONE 1 MG TABLET PO SCH (19:53)
[2016-02-24] MEDS ORDERED: Vancomycin 2,000 MG in D5% in Water 500 ML IVPB SCH (20:00)
[2016-02-24] MEDS: Nystatin POWDER 30 GM BOTTLE TP SCH (20:21)
[2016-02-25] MEDS: Ipratropium/Albuterol Neb 3 ML IH SCH ×4 (03:39→23:53)
[2016-02-25] MEDS: Acetaminophen 325 MG TABLET PO PRN ×2 (05:48→17:54)
[2016-02-25] MEDS: *HR* Heparin 5,000 UNIT/ML VIAL SQ SCH ×2 (05:48→17:53)
[2016-02-25 06:19] LABS: Basophils % 0.9 %; Eosinophils # 0.2 K/mcL (0.0-0.6); Eosinophils % 6.3 %; Hematocrit 34.1 % (35.3-44.9); Immature Granulocytes % 0.6 % (0-4); Lymphocytes # 0.5 K/mcL (0.6-4.6); Lymphocytes % 16.6 %; Mean Corpuscular HGB Conc 29.3 g/dL (31.6-35.5); Mean Corpuscular Hemoglobin 26.7 pg (28.0-33.3); Mean Corpuscular Volume 91.2 fL (83.0-100.0); Mean Platelet Volume 11.3 fL (9.4-12.4); Monocytes # 0.4 K/mcL (0.0-1.3); Monocytes % 13.2 %; Platelet Count 145 K/mcL (140-400); Red Blood Count 3.74 M/mcL (3.82-4.97); Red Cell Distribution Width 15.7 % (11.5-14.5); Segmented Neutrophils % 62.4 %
[2016-02-25 06:23] LABS: Potassium 4.3 mEq/L (3.5-4.5)
[2016-02-25] MEDS: Insulin LISPRO 300 UNITS/3 ML VIAL SQ SCH ×4 (08:20→19:56)
[2016-02-25] MEDS: Furosemide 40 MG/4 ML VIAL IVP SCH (08:37)
[2016-02-25] MEDS: Nystatin POWDER 30 GM BOTTLE TP SCH ×2 (08:37→19:56)
[2016-02-25] MEDS: Vancomycin 1,750 MG in D5% in Water 500 ML IVPB SCH (12:01)
--- NOTE | 2016-02-25 16:08 | Internal Med Progress Note ---
Date of Encounter: 02/25/16 Time of Encounter: 08:15 - Assessment and plan (1) Acute hypercapnic respiratory failure Current Visit: Yes Status: Acute Assessment and plan: Improving. Likely due to obesity hypoventilation and CPAP. Continue to Use BiPAP as needed especially while lying down. (2) Bacteremia due to methicillin resistant Staphylococcus aureus Current Visit: Yes Status: Suspected Assessment and plan: Will repeat blood cultures. Continue IV antibiotics. Most likely source is left lower extremity cellulitis. Will get 2-D echocardiogram to look for any vegetations. (3) Cellulitis of leg, left Current Visit: Yes Status: Acute Assessment and plan: Continue local wound care, IV vancomycin (4) Hyperkalemia Current Visit: Yes Status: Resolved (5) Sepsis Current Visit: Yes Status: Acute Assessment and plan: With bacteremia from possible MRSA. Improving. Continue vancomycin. Qualifiers: Sepsis type: methicillin resistant Staphylococcus aureus Qualified Code(s) : A41.02 - Sepsis due to Methicillin resistant Staphylococcus aureus (6) CHF (congestive heart failure) Current Visit: Yes Status: Chronic Assessment and plan: Chronic. No acute exacerbation Qualifiers: Congestive heart failure type: diastolic Congestive heart failure chronicity: unspecified congestive heart failure chronicity Qualified Code(s) : I50.30 - Unspecified diastolic (congestive) heart failure (7) CKD (chronic kidney disease) stage 3, GFR 30-59 ml/min Current Visit: Yes Status: Chronic Assessment and plan: Creatinine slightly better today. Will continue to monitor renal function. (8) DM type 2 (diabetes mellitus, type 2) Current Visit: Yes Status: Chronic Assessment and plan: Improved and controlled blood sugars. 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 Stable hemoglobin levels. Present on admission Qualifiers: Anemia type: other cause Other causes of anemia: chronic disease, kidney Qualified Code(s): N18.9 - Chronic kidney disease, unspecified; D63.1 - Anemia in chronic kidney disease (11) Community acquired pneumonia Current Visit: Yes Status: Ruled-out Assessment and plan: Ruled out. Repeat x-ray does not show any consolidation. - Subjective Interval history: Patient is feeling better today. Denies any pain. No nausea or vomiting. No fever or chills. No new complaints at this time. - Constitutional Vitals: Temp Pulse Resp BP Pulse Ox 99.0 F 79 18 126/78 96 02/25/16 11:50 02/25/16 11:50 02/25/16 15:42 02/25/16 11:50 02/25/16 15:42 General appearance: Present: cooperative, A&O X 2, morbidly obese, pleasant, no acute distress, obese, answers questions appropriately - Neck Neck exam general surgery: Present: supple, trachea midline. Absent: lymphadenopathy - Respiratory Respiratory exam: Present: decreased breath sounds (At both bases), CTAB. Absent: accessory muscle use, rales, rhonchi, wheezes - Cardiovascular Cardiovascular exam: Present: RRR, +S1, +S2. Absent: diastolic murmur, gallop, rubs, systolic murmur - Extremities Exam Extremities exam: Present: warm, radial pulses palpable and symetrical. Absent : calf tenderness, cyanotic, pedal edema Additional comments: Left leg currently bandaged. - Neurological Exam Neurological exam: Present: CN II-XII intact, no focal deficits. Absent: facial droop, speech deficit - Skin Skin exam: Present: dry Internal Medicine: Result - Labs CBC & Chem 7: 02/25/16 05:51 02/25/16 05:51 Labs: Short CBC 02/25/16 Range/Units 05:51 WBC 3.2 L (4.3-11.1) K/mcL Hgb 10.0 L (11.5-15.4) g/dL Hct 34.1 L (35.3-44.9) % Plt Count 145 (140-400) K/mcL Neutrophils # 2.0 (1.6-8.9) K/mcL BMP 02/25/16 05:51 Sodium 142 Potassium 4.3 Chloride 104 Carbon Dioxide 25 BUN 40 H Creatinine 1.94 H Glucose 100 H Calcium 9.0 - ABG Interpretation ABG results: ABG ABG pH 7.29 pH Units (7.32-7.45) L 02/24/16 17:35 ABG pCO2 67 mmHg (35-45) H 02/24/16 17:35 ABG pO2 90 mmHg (85-104) 02/24/16 17:35 ABG O2 Saturation 96 % (95-98) 02/24/16 17:35 PT/INR, D-dimer PT 11.6 Seconds (9.4-12.1) 02/23/16 13:59 Consult Discharge Plan - Plan Referrals: VISITING, PHYSCIANS [Other] (THIS DOCTOR GOES TO THE ALF TO SEE PATIENT) - Attending Attestation This document has been at least partially created by [employer] recognition technology by Dr. Bhagat. Errors in grammar, wording or other phrases may exist. If errors are found after the documentation is signed, they will be addressed individually in the addendum section of this document when appropriate. Medical Decision Making - MDM Narrative Medical decision making narrative: High risk for complications - Medical Records Medical records reviewed: Yes I reviewed the patient's medical records. - Lab Data Lab results reviewed: Yes I reviewed the patient's lab results. Result diagrams: 02/25/16 05:51 02/25/16 05:51 Lab Results 02/23/16 02/23/16 02/24/16 Range/Units 19:52 20:50 05:22 WBC 2.9 L (4.3-11.1) K/mcL RBC 3.55 L (3.82-4.97) M/mcL Hgb 9.7 L (11.5-15.4) g/dL Hct 33.3 L (35.3-44.9) % MCV 93.8 (83.0-100.0) fL MCH 27.3 L (28.0-33.3) pg MCHC 29.1 L (31.6-35.5) g/dL RDW 15.8 H (11.5-14.5) % Plt Count 148 (140-400) K/mcL MPV 11.0 (9.4-12.4) fL Immature Gran % 0.7 (0-4) % Seg Neutrophils % 60.4 % Lymphocytes % 18.4 % Monocytes % 14.2 % Eosinophils % 5.6 % Basophils % 0.7 % Neutrophils # 1.8 (1.6-8.9) K/mcL Lymphocytes # 0.5 L (0.6-4.6) K/mcL Monocytes # 0.4 (0.0-1.3) K/mcL Eosinophils # 0.2 (0.0-0.6) K/mcL Basophils # 0.0 (0.0-0.2) K/mcL Platelet Estimate Normal (Normal) Hypochromasia Present A (Not Present) Anisocytosis 1+ A (Not Present) ABG pH (7.32-7.45) pH Units ABG pCO2 (35-45) mmHg ABG pO2 (85-104) mmHg ABG HCO3 (21-27) mEQ/L ABG Total CO2 (20-26) mEq/L ABG O2 Saturation (95-98) % ABG Base Excess (-2.0 to 3.0) mEq/L Blood Gas Modality Inspired O2 % Sodium (136-145) mEq/L Potassium 5.2 H (3.5-4.5) mEq/L Chloride (98-109) mEq/L Carbon Dioxide (19-29) mEq/L BUN (7-20) mg/dL Creatinine (0.57-1.11) mg/dL Est GFR ( Amer) (> 60) Est GFR (Non-Af Amer) (> 60) BUN/Creatinine Ratio (6-26) Glucose (70-99) mg/dL POC Glucose 98 H (58-89) Calculated Osmolality (280-300) Calcium (8.6-10.8) mg/dL C-Reactive Protein 8 H (Less than 5) mg/L 02/24/16 02/24/16 02/24/16 Range/Units 05:22 07:43 12:01 WBC (4.3-11.1) K/mcL RBC (3.82-4.97) M/mcL Hgb (11.5-15.4) g/dL Hct (35.3-44.9) % MCV (83.0-100.0) fL MCH (28.0-33.3) pg MCHC (31.6-35.5) g/dL RDW (11.5-14.5) % Plt Count (140-400) K/mcL MPV (9.4-12.4) fL Immature Gran % (0-4) % Seg Neutrophils % % Lymphocytes % % Monocytes % % Eosinophils % % Basophils % % Neutrophils # (1.6-8.9) K/mcL Lymphocytes # (0.6-4.6) K/mcL Monocytes # (0.0-1.3) K/mcL Eosinophils # (0.0-0.6) K/mcL Basophils # (0.0-0.2) K/mcL Platelet Estimate (Normal) Hypochromasia (Not Present) Anisocytosis (Not Present) ABG pH (7.32-7.45) pH Units ABG pCO2 (35-45) mmHg ABG pO2 (85-104) mmHg ABG HCO3 (21-27) mEQ/L ABG Total CO2 (20-26) mEq/L ABG O2 Saturation (95-98) % ABG Base Excess (-2.0 to 3.0) mEq/L Blood Gas Modality Inspired O2 % Sodium 145 (136-145) mEq/L Potassium 5.0 H (3.5-4.5) mEq/L Chloride 110 H (98-109) mEq/L Carbon Dioxide 25 (19-29) mEq/L BUN 36 H (7-20) mg/dL Creatinine 2.19 H (0.57-1.11) mg/dL Est GFR ( Amer) 27 L (> 60) Est GFR (Non-Af Amer) 22 L (> 60) BUN/Creatinine Ratio 16 (6-26) Glucose 98 (70-99) mg/dL POC Glucose 102 H 227 H (58-89) Calculated Osmolality 308 H (280-300) Calcium 8.9 (8.6-10.8) mg/dL C-Reactive Protein (Less than 5) mg/L 02/24/16 02/24/16 02/24/16 Range/Units 16:04 17:35 19:42 WBC (4.3-11.1) K/mcL RBC (3.82-4.97) M/mcL Hgb (11.5-15.4) g/dL Hct (35.3-44.9) % MCV (83.0-100.0) fL MCH (28.0-33.3) pg MCHC (31.6-35.5) g/dL RDW (11.5-14.5) % Plt Count (140-400) K/mcL MPV (9.4-12.4) fL Immature Gran % (0-4) % Seg Neutrophils % % Lymphocytes % % Monocytes % % Eosinophils % % Basophils % % Neutrophils # (1.6-8.9) K/mcL Lymphocytes # (0.6-4.6) K/mcL Monocytes # (0.0-1.3) K/mcL Eosinophils # (0.0-0.6) K/mcL Basophils # (0.0-0.2) K/mcL Platelet Estimate (Normal) Hypochromasia (Not Present) Anisocytosis (Not Present) ABG pH 7.29 L (7.32-7.45) pH Units ABG pCO2 67 H (35-45) mmHg ABG pO2 90 (85-104) mmHg ABG HCO3 32.2 H (21-27) mEQ/L ABG Total CO2 34.3 H (20-26) mEq/L ABG O2 Saturation 96 (95-98) % ABG Base Excess 4.0 H (-2.0 to 3.0) mEq/L Blood Gas Modality [place] Inspired O2 36 % Sodium (136-145) mEq/L Potassium (3.5-4.5) mEq/L Chloride (98-109) mEq/L Carbon Dioxide (19-29) mEq/L BUN (7-20) mg/dL Creatinine (0.57-1.11) mg/dL Est GFR ( Amer) (> 60) Est GFR (Non-Af Amer) (> 60) BUN/Creatinine Ratio (6-26) Glucose (70-99) mg/dL POC Glucose 114 H 142 H (58-89) Calculated Osmolality (280-300) Calcium (8.6-10.8) mg/dL C-Reactive Protein (Less than 5) mg/L 02/25/16 02/25/16 02/25/16 Range/Units 05:51 05:51 07:46 WBC 3.2 L (4.3-11.1) K/mcL RBC 3.74 L (3.82-4.97) M/mcL Hgb 10.0 L (11.5-15.4) g/dL Hct 34.1 L (35.3-44.9) % MCV 91.2 (83.0-100.0) fL MCH 26.7 L (28.0-33.3) pg MCHC 29.3 L (31.6-35.5) g/dL RDW 15.7 H (11.5-14.5) % Plt Count 145 (140-400) K/mcL MPV 11.3 (9.4-12.4) fL Immature Gran % 0.6 (0-4) % Seg Neutrophils % 62.4 % Lymphocytes % 16.6 % Monocytes % 13.2 % Eosinophils % 6.3 % Basophils % 0.9 % Neutrophils # 2.0 (1.6-8.9) K/mcL Lymphocytes # 0.5 L (0.6-4.6) K/mcL Monocytes # 0.4 (0.0-1.3) K/mcL Eosinophils # 0.2 (0.0-0.6) K/mcL Basophils # 0.0 (0.0-0.2) K/mcL Platelet Estimate (Normal) Hypochromasia (Not Present) Anisocytosis (Not Present) ABG pH (7.32-7.45) pH Units ABG pCO2 (35-45) mmHg ABG pO2 (85-104) mmHg ABG HCO3 (21-27) mEQ/L ABG Total CO2 (20-26) mEq/L ABG O2 Saturation (95-98) % ABG Base Excess (-2.0 to 3.0) mEq/L Blood Gas Modality Inspired O2 % Sodium 142 (136-145) mEq/L Potassium 4.3 (3.5-4.5) mEq/L Chloride 104 (98-109) mEq/L Carbon Dioxide 25 (19-29) mEq/L BUN 40 H (7-20) mg/dL Creatinine 1.94 H (0.57-1.11) mg/dL Est GFR ( Amer) 31 L (> 60) Est GFR (Non-Af Amer) 26 L (> 60) BUN/Creatinine Ratio 21 (6-26) Glucose 100 H (70-99) mg/dL POC Glucose 100 H (58-89) Calculated Osmolality 304 H (280-300) Calcium 9.0 (8.6-10.8) mg/dL C-Reactive Protein (Less than 5) mg/L - Radiology Data Radiology results reviewed: Yes I reviewed the patient's radiology results.
[2016-02-25] MEDS: Silvasorb 44.4 ML TUBE TP SCH (18:34)
[2016-02-25] MEDS: risperiDONE 1 MG TABLET PO SCH (19:56)
[2016-02-26] MEDS: Ipratropium/Albuterol Neb 3 ML IH SCH ×4 (04:34→22:51)
[2016-02-26 04:43] LABS: Basophils % 0.7 %; Eosinophils # 0.3 K/mcL (0.0-0.6); Eosinophils % 8.3 %; Hematocrit 32.7 % (35.3-44.9); Hemoglobin 9.8 g/dL (11.5-15.4); Immature Granulocytes % 0.3 % (0-4); Lymphocytes # 0.4 K/mcL (0.6-4.6); Lymphocytes % 14.6 %; Mean Corpuscular Volume 90.1 fL (83.0-100.0); Mean Platelet Volume 11.4 fL (9.4-12.4); Monocytes # 0.4 K/mcL (0.0-1.3); Monocytes % 13.6 %; Neutrophils # 1.9 K/mcL (1.6-8.9); Nucleated Red Blood Cells 0.7 /100 WBC (0); Platelet Count 149 K/mcL (140-400); Red Blood Count 3.63 M/mcL (3.82-4.97); Red Cell Distribution Width 15.1 % (11.5-14.5); Segmented Neutrophils % 62.5 %
[2016-02-26] MEDS: Acetaminophen 325 MG TABLET PO PRN (06:09)
[2016-02-26] MEDS: *HR* Heparin 5,000 UNIT/ML VIAL SQ SCH ×2 (06:09→17:23)
[2016-02-26] MEDS: Insulin LISPRO 300 UNITS/3 ML VIAL SQ SCH ×4 (08:10→20:23)
[2016-02-26] MEDS: Silvasorb 44.4 ML TUBE TP SCH (08:32)
[2016-02-26] MEDS: Nystatin POWDER 30 GM BOTTLE TP SCH ×2 (08:32→20:24)
[2016-02-26] MEDS: Vancomycin 1,500 MG in D5% in Water 250 ML IVPB SCH (13:55)
--- NOTE | 2016-02-26 15:19 | Internal Med Progress Note ---
Date of Encounter: 02/26/16 Time of Encounter: 08:30 - Assessment and plan (1) Bacteremia due to Staphylococcus epidermidis Current Visit: Yes Status: Acute Assessment and plan: Patient's blood culture is growing staph epidermidis that is methicillin- resistant. Continue vancomycin. Patient will need 2 weeks of intravenous antibiotics with vancomycin. Repeat cultures are negative so far. If they remain negative, plan for PICC line placement tomorrow. (2) Acute hypercapnic respiratory failure Current Visit: Yes Status: Acute Assessment and plan: Continue O2 supplementation. Patient currently on 4 L nasal cannula. Continue nebulizer treatments. (3) Cellulitis of leg, left Current Visit: Yes Status: Acute Assessment and plan: Cellulitis involving the left leg. Continue current management with local wound care and intravenous vancomycin. (4) Hyperkalemia Current Visit: Yes Status: Resolved (5) Sepsis Current Visit: Yes Status: Resolved Assessment and plan: Repeat blood cultures are negative so far. Sepsis seems to be resolving. Qualifiers: Sepsis type: sepsis due to unspecified organism Qualified Code(s): A41.9 - Sepsis, unspecified organism (6) CHF (congestive heart failure) Current Visit: Yes Status: Chronic Qualifiers: Congestive heart failure type: diastolic Congestive heart failure chronicity: chronic Qualified Code(s): I50.32 - Chronic diastolic (congestive ) heart failure (7) CKD (chronic kidney disease) stage 3, GFR 30-59 ml/min Current Visit: Yes Status: Chronic Assessment and plan: Chronic stable renal function (8) DM type 2 (diabetes mellitus, type 2) Current Visit: Yes Status: Chronic Assessment and plan: Continue current insulin regimen. Blood sugars are fairly controlled. 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 use Chronic kidney disease stage: stage 3 (moderate) Qualified Code(s): E11.22 - Type 2 diabetes mellitus with diabetic chronic kidney disease; N18.3 - Chronic kidney disease, stage 3 ( moderate) (9) Hypertension Current Visit: Yes Status: Chronic Assessment and plan: Remains well-controlled Qualifiers: Hypertension type: essential hypertension Qualified Code(s): I10 - Essential (primary) hypertension (10) Anemia Current Visit: No Status: Chronic Assessment and plan: Chronic stable Qualifiers: Anemia type: other cause Other causes of anemia: chronic disease, kidney Qualified Code(s): N18.9 - Chronic kidney disease, unspecified; D63.1 - Anemia in chronic kidney disease (11) Community acquired pneumonia Current Visit: Yes Status: Ruled-out - Subjective Interval history: Patient remains well. Denies any new complaints. No chest pain. No lower extremity pain. No fever or chills reported overnight. - Constitutional Vitals: Temp Pulse Resp BP Pulse Ox 98 F 79 16 120/77 95 02/26/16 10:48 02/26/16 10:48 02/26/16 11:54 02/26/16 10:48 02/26/16 11:54 General appearance: Present: cooperative, A&O X 2, mild distress, morbidly obese , pleasant, obese, answers questions appropriately - Neck Neck exam general surgery: Present: supple, trachea midline. Absent: lymphadenopathy - Respiratory Respiratory exam: Present: CTAB. Absent: accessory muscle use, rales, rhonchi, wheezes - Cardiovascular Cardiovascular exam: Present: RRR, +S1, +S2. Absent: diastolic murmur, gallop, rubs, systolic murmur - GI/Abdominal GI/Abdominal exam: Present: normal bowel sounds, soft, no peritoneal signs. Absent: distended, tenderness - Extremities Exam Additional comments: Left lower extremity cellulitis. Healing well. Currently bandaged. - Neurological Exam Neurological exam: Present: CN II-XII intact, oriented X3, no focal deficits. Absent: facial droop, speech deficit - Skin Skin exam: Present: dry, intact Internal Medicine: Result - Labs CBC & Chem 7: 02/26/16 04:24 02/26/16 04:24 Labs: Short CBC 02/26/16 Range/Units 04:24 WBC 3.0 L (4.3-11.1) K/mcL Hgb 9.8 L (11.5-15.4) g/dL Hct 32.7 L (35.3-44.9) % Plt Count 149 (140-400) K/mcL Neutrophils # 1.9 (1.6-8.9) K/mcL BMP 02/26/16 04:24 Sodium 141 Potassium 4.0 Chloride 100 Carbon Dioxide 32 H BUN 45 H Creatinine 1.83 H Glucose 107 H Calcium 9.0 Cardiac Enzymes 02/26/16 Range/Units 04:24 Troponin I 0.06 H* (0-0.03) ng/mL - ABG Interpretation ABG results: ABG ABG pH 7.29 pH Units (7.32-7.45) L 02/24/16 17:35 ABG pCO2 67 mmHg (35-45) H 02/24/16 17:35 ABG pO2 90 mmHg (85-104) 02/24/16 17:35 ABG O2 Saturation 96 % (95-98) 02/24/16 17:35 PT/INR, D-dimer PT 11.6 Seconds (9.4-12.1) 02/23/16 13:59 Consult Discharge Plan - Plan Referrals: VISITING, PHYSCIANS [Other] (THIS DOCTOR GOES TO THE LONGTERM TO SEE PATIENT) - Attending Attestation This document has been at least partially created by [employer] recognition technology by Dr. Bhagat. Errors in grammar, wording or other phrases may exist. If errors are found after the documentation is signed, they will be addressed individually in the addendum section of this document when appropriate. Medical Decision Making - MDM Narrative Medical decision making narrative: Moderate risk for complications - Lab Data Lab results reviewed: Yes I reviewed the patient's lab results. Result diagrams: 02/26/16 04:24 02/26/16 04:24 Lab Results 02/23/16 02/23/16 02/24/16 Range/Units 19:52 20:50 05:22 WBC 2.9 L (4.3-11.1) K/mcL RBC 3.55 L (3.82-4.97) M/mcL Hgb 9.7 L (11.5-15.4) g/dL Hct 33.3 L (35.3-44.9) % MCV 93.8 (83.0-100.0) fL MCH 27.3 L (28.0-33.3) pg MCHC 29.1 L (31.6-35.5) g/dL RDW 15.8 H (11.5-14.5) % Plt Count 148 (140-400) K/mcL MPV 11.0 (9.4-12.4) fL Immature Gran % 0.7 (0-4) % Seg Neutrophils % 60.4 % Lymphocytes % 18.4 % Monocytes % 14.2 % Eosinophils % 5.6 % Basophils % 0.7 % Neutrophils # 1.8 (1.6-8.9) K/mcL Lymphocytes # 0.5 L (0.6-4.6) K/mcL Monocytes # 0.4 (0.0-1.3) K/mcL Eosinophils # 0.2 (0.0-0.6) K/mcL Basophils # 0.0 (0.0-0.2) K/mcL Nucleated RBCs/100 WBC (0) /100 WBC Platelet Estimate Normal (Normal) Hypochromasia Present A (Not Present) Anisocytosis 1+ A (Not Present) ABG pH (7.32-7.45) pH Units ABG pCO2 (35-45) mmHg ABG pO2 (85-104) mmHg ABG HCO3 (21-27) mEQ/L ABG Total CO2 (20-26) mEq/L ABG O2 Saturation (95-98) % ABG Base Excess (-2.0 to 3.0) mEq/L Blood Gas Modality Inspired O2 % Sodium (136-145) mEq/L Potassium 5.2 H (3.5-4.5) mEq/L Chloride (98-109) mEq/L Carbon Dioxide (19-29) mEq/L BUN (7-20) mg/dL Creatinine (0.57-1.11) mg/dL Est GFR ( Amer) (> 60) Est GFR (Non-Af Amer) (> 60) BUN/Creatinine Ratio (6-26) Glucose (70-99) mg/dL POC Glucose 98 H (58-89) Calculated Osmolality (280-300) Calcium (8.6-10.8) mg/dL Troponin I (0-0.03) ng/mL C-Reactive Protein 8 H (Less than 5) mg/L Vancomycin Trough (10-20) mcg/mL 02/24/16 02/24/16 02/24/16 Range/Units 05:22 07:43 12:01 WBC (4.3-11.1) K/mcL RBC (3.82-4.97) M/mcL Hgb (11.5-15.4) g/dL Hct (35.3-44.9) % MCV (83.0-100.0) fL MCH (28.0-33.3) pg MCHC (31.6-35.5) g/dL RDW (11.5-14.5) % Plt Count (140-400) K/mcL MPV (9.4-12.4) fL Immature Gran % (0-4) % Seg Neutrophils % % Lymphocytes % % Monocytes % % Eosinophils % % Basophils % % Neutrophils # (1.6-8.9) K/mcL Lymphocytes # (0.6-4.6) K/mcL Monocytes # (0.0-1.3) K/mcL Eosinophils # (0.0-0.6) K/mcL Basophils # (0.0-0.2) K/mcL Nucleated RBCs/100 WBC (0) /100 WBC Platelet Estimate (Normal) Hypochromasia (Not Present) Anisocytosis (Not Present) ABG pH (7.32-7.45) pH Units ABG pCO2 (35-45) mmHg ABG pO2 (85-104) mmHg ABG HCO3 (21-27) mEQ/L ABG Total CO2 (20-26) mEq/L ABG O2 Saturation (95-98) % ABG Base Excess (-2.0 to 3.0) mEq/L Blood Gas Modality Inspired O2 % Sodium 145 (136-145) mEq/L Potassium 5.0 H (3.5-4.5) mEq/L Chloride 110 H (98-109) mEq/L Carbon Dioxide 25 (19-29) mEq/L BUN 36 H (7-20) mg/dL Creatinine 2.19 H (0.57-1.11) mg/dL Est GFR ( Amer) 27 L (> 60) Est GFR (Non-Af Amer) 22 L (> 60) BUN/Creatinine Ratio 16 (6-26) Glucose 98 (70-99) mg/dL POC Glucose 102 H 227 H (58-89) Calculated Osmolality 308 H (280-300) Calcium 8.9 (8.6-10.8) mg/dL Troponin I (0-0.03) ng/mL C-Reactive Protein (Less than 5) mg/L Vancomycin Trough (10-20) mcg/mL 02/24/16 02/24/16 02/24/16 Range/Units 16:04 17:35 19:42 WBC (4.3-11.1) K/mcL RBC (3.82-4.97) M/mcL Hgb (11.5-15.4) g/dL Hct (35.3-44.9) % MCV (83.0-100.0) fL MCH (28.0-33.3) pg MCHC (31.6-35.5) g/dL RDW (11.5-14.5) % Plt Count (140-400) K/mcL MPV (9.4-12.4) fL Immature Gran % (0-4) % Seg Neutrophils % % Lymphocytes % % Monocytes % % Eosinophils % % Basophils % % Neutrophils # (1.6-8.9) K/mcL Lymphocytes # (0.6-4.6) K/mcL Monocytes # (0.0-1.3) K/mcL Eosinophils # (0.0-0.6) K/mcL Basophils # (0.0-0.2) K/mcL Nucleated RBCs/100 WBC (0) /100 WBC Platelet Estimate (Normal) Hypochromasia (Not Present) Anisocytosis (Not Present) ABG pH 7.29 L (7.32-7.45) pH Units ABG pCO2 67 H (35-45) mmHg ABG pO2 90 (85-104) mmHg ABG HCO3 32.2 H (21-27) mEQ/L ABG Total CO2 34.3 H (20-26) mEq/L ABG O2 Saturation 96 (95-98) % ABG Base Excess 4.0 H (-2.0 to 3.0) mEq/L Blood Gas Modality [place] Inspired O2 36 % Sodium (136-145) mEq/L Potassium (3.5-4.5) mEq/L Chloride (98-109) mEq/L Carbon Dioxide (19-29) mEq/L BUN (7-20) mg/dL Creatinine (0.57-1.11) mg/dL Est GFR ( Amer) (> 60) Est GFR (Non-Af Amer) (> 60) BUN/Creatinine Ratio (6-26) Glucose (70-99) mg/dL POC Glucose 114 H 142 H (58-89) Calculated Osmolality (280-300) Calcium (8.6-10.8) mg/dL Troponin I (0-0.03) ng/mL C-Reactive Protein (Less than 5) mg/L Vancomycin Trough (10-20) mcg/mL 02/25/16 02/25/16 02/25/16 Range/Units 05:51 05:51 07:46 WBC 3.2 L (4.3-11.1) K/mcL RBC 3.74 L (3.82-4.97) M/mcL Hgb 10.0 L (11.5-15.4) g/dL Hct 34.1 L (35.3-44.9) % MCV 91.2 (83.0-100.0) fL MCH 26.7 L (28.0-33.3) pg MCHC 29.3 L (31.6-35.5) g/dL RDW 15.7 H (11.5-14.5) % Plt Count 145 (140-400) K/mcL MPV 11.3 (9.4-12.4) fL Immature Gran % 0.6 (0-4) % Seg Neutrophils % 62.4 % Lymphocytes % 16.6 % Monocytes % 13.2 % Eosinophils % 6.3 % Basophils % 0.9 % Neutrophils # 2.0 (1.6-8.9) K/mcL Lymphocytes # 0.5 L (0.6-4.6) K/mcL Monocytes # 0.4 (0.0-1.3) K/mcL Eosinophils # 0.2 (0.0-0.6) K/mcL Basophils # 0.0 (0.0-0.2) K/mcL Nucleated RBCs/100 WBC (0) /100 WBC Platelet Estimate (Normal) Hypochromasia (Not Present) Anisocytosis (Not Present) ABG pH (7.32-7.45) pH Units ABG pCO2 (35-45) mmHg ABG pO2 (85-104) mmHg ABG HCO3 (21-27) mEQ/L ABG Total CO2 (20-26) mEq/L ABG O2 Saturation (95-98) % ABG Base Excess (-2.0 to 3.0) mEq/L Blood Gas Modality Inspired O2 % Sodium 142 (136-145) mEq/L Potassium 4.3 (3.5-4.5) mEq/L Chloride 104 (98-109) mEq/L Carbon Dioxide 25 (19-29) mEq/L BUN 40 H (7-20) mg/dL Creatinine 1.94 H (0.57-1.11) mg/dL Est GFR ( Amer) 31 L (> 60) Est GFR (Non-Af Amer) 26 L (> 60) BUN/Creatinine Ratio 21 (6-26) Glucose 100 H (70-99) mg/dL POC Glucose 100 H (58-89) Calculated Osmolality 304 H (280-300) Calcium 9.0 (8.6-10.8) mg/dL Troponin I (0-0.03) ng/mL C-Reactive Protein (Less than 5) mg/L Vancomycin Trough (10-20) mcg/mL 02/25/16 02/25/16 02/25/16 Range/Units 11:45 16:14 19:52 WBC (4.3-11.1) K/mcL RBC (3.82-4.97) M/mcL Hgb (11.5-15.4) g/dL Hct (35.3-44.9) % MCV (83.0-100.0) fL MCH (28.0-33.3) pg MCHC (31.6-35.5) g/dL RDW (11.5-14.5) % Plt Count (140-400) K/mcL MPV (9.4-12.4) fL Immature Gran % (0-4) % Seg Neutrophils % % Lymphocytes % % Monocytes % % Eosinophils % % Basophils % % Neutrophils # (1.6-8.9) K/mcL Lymphocytes # (0.6-4.6) K/mcL Monocytes # (0.0-1.3) K/mcL Eosinophils # (0.0-0.6) K/mcL Basophils # (0.0-0.2) K/mcL Nucleated RBCs/100 WBC (0) /100 WBC Platelet Estimate (Normal) Hypochromasia (Not Present) Anisocytosis (Not Present) ABG pH (7.32-7.45) pH Units ABG pCO2 (35-45) mmHg ABG pO2 (85-104) mmHg ABG HCO3 (21-27) mEQ/L ABG Total CO2 (20-26) mEq/L ABG O2 Saturation (95-98) % ABG Base Excess (-2.0 to 3.0) mEq/L Blood Gas Modality Inspired O2 % Sodium (136-145) mEq/L Potassium (3.5-4.5) mEq/L Chloride (98-109) mEq/L Carbon Dioxide (19-29) mEq/L BUN (7-20) mg/dL Creatinine (0.57-1.11) mg/dL Est GFR ( Amer) (> 60) Est GFR (Non-Af Amer) (> 60) BUN/Creatinine Ratio (6-26) Glucose (70-99) mg/dL POC Glucose 156 H 112 H 137 H (58-89) Calculated Osmolality (280-300) Calcium (8.6-10.8) mg/dL Troponin I (0-0.03) ng/mL C-Reactive Protein (Less than 5) mg/L Vancomycin Trough (10-20) mcg/mL 02/26/16 02/26/16 02/26/16 Range/Units 04:24 04:24 04:24 WBC 3.0 L (4.3-11.1) K/mcL RBC 3.63 L (3.82-4.97) M/mcL Hgb 9.8 L (11.5-15.4) g/dL Hct 32.7 L (35.3-44.9) % MCV 90.1 (83.0-100.0) fL MCH 27.0 L (28.0-33.3) pg MCHC 30.0 L (31.6-35.5) g/dL RDW 15.1 H (11.5-14.5) % Plt Count 149 (140-400) K/mcL MPV 11.4 (9.4-12.4) fL Immature Gran % 0.3 (0-4) % Seg Neutrophils % 62.5 % Lymphocytes % 14.6 % Monocytes % 13.6 % Eosinophils % 8.3 % Basophils % 0.7 % Neutrophils # 1.9 (1.6-8.9) K/mcL Lymphocytes # 0.4 L (0.6-4.6) K/mcL Monocytes # 0.4 (0.0-1.3) K/mcL Eosinophils # 0.3 (0.0-0.6) K/mcL Basophils # 0.0 (0.0-0.2) K/mcL Nucleated RBCs/100 WBC 0.7 H (0) /100 WBC Platelet Estimate (Normal) Hypochromasia (Not Present) Anisocytosis (Not Present) ABG pH (7.32-7.45) pH Units ABG pCO2 (35-45) mmHg ABG pO2 (85-104) mmHg ABG HCO3 (21-27) mEQ/L ABG Total CO2 (20-26) mEq/L ABG O2 Saturation (95-98) % ABG Base Excess (-2.0 to 3.0) mEq/L Blood Gas Modality Inspired O2 % Sodium 141 (136-145) mEq/L Potassium 4.0 (3.5-4.5) mEq/L Chloride 100 (98-109) mEq/L Carbon Dioxide 32 H (19-29) mEq/L BUN 45 H (7-20) mg/dL Creatinine 1.83 H (0.57-1.11) mg/dL Est GFR ( Amer) 33 L (> 60) Est GFR (Non-Af Amer) 27 L (> 60) BUN/Creatinine Ratio 25 (6-26) Glucose 107 H (70-99) mg/dL POC Glucose (58-89) Calculated Osmolality 304 H (280-300) Calcium 9.0 (8.6-10.8) mg/dL Troponin I 0.06 H* (0-0.03) ng/mL C-Reactive Protein (Less than 5) mg/L Vancomycin Trough (10-20) mcg/mL 02/26/16 Range/Units 11:15 WBC (4.3-11.1) K/mcL RBC (3.82-4.97) M/mcL Hgb (11.5-15.4) g/dL Hct (35.3-44.9) % MCV (83.0-100.0) fL MCH (28.0-33.3) pg MCHC (31.6-35.5) g/dL RDW (11.5-14.5) % Plt Count (140-400) K/mcL MPV (9.4-12.4) fL Immature Gran % (0-4) % Seg Neutrophils % % Lymphocytes % % Monocytes % % Eosinophils % % Basophils % % Neutrophils # (1.6-8.9) K/mcL Lymphocytes # (0.6-4.6) K/mcL Monocytes # (0.0-1.3) K/mcL Eosinophils # (0.0-0.6) K/mcL Basophils # (0.0-0.2) K/mcL Nucleated RBCs/100 WBC (0) /100 WBC Platelet Estimate (Normal) Hypochromasia (Not Present) Anisocytosis (Not Present) ABG pH (7.32-7.45) pH Units ABG pCO2 (35-45) mmHg ABG pO2 (85-104) mmHg ABG HCO3 (21-27) mEQ/L ABG Total CO2 (20-26) mEq/L ABG O2 Saturation (95-98) % ABG Base Excess (-2.0 to 3.0) mEq/L Blood Gas Modality Inspired O2 % Sodium (136-145) mEq/L Potassium (3.5-4.5) mEq/L Chloride (98-109) mEq/L Carbon Dioxide (19-29) mEq/L BUN (7-20) mg/dL Creatinine (0.57-1.11) mg/dL Est GFR ( Amer) (> 60) Est GFR (Non-Af Amer) (> 60) BUN/Creatinine Ratio (6-26) Glucose (70-99) mg/dL POC Glucose (58-89) Calculated Osmolality (280-300) Calcium (8.6-10.8) mg/dL Troponin I (0-0.03) ng/mL C-Reactive Protein (Less than 5) mg/L Vancomycin Trough 18.4 (10-20) mcg/mL
[2016-02-26] MEDS: risperiDONE 1 MG TABLET PO SCH (20:23)
[2016-02-27] MEDS: Acetaminophen 325 MG TABLET PO PRN ×2 (04:15→17:51)
[2016-02-27] MEDS: *HR* Heparin 5,000 UNIT/ML VIAL SQ SCH ×2 (05:25→17:45)
[2016-02-27] MEDS: Ipratropium/Albuterol Neb 3 ML IH SCH ×4 (05:37→23:08)
[2016-02-27] MEDS ORDERED: Lidocaine -MPF 1% 5 ML AMPUL INFILT ONE (09:37)
--- NOTE | 2016-02-27 09:58 | ECHO - Doppler Report ---
Limited Echocardiogram Name: Juwan Madera Date of Study: 02/27/2016 Date: 1945 Ht: 65.0 in Medical Record#: [id number] Age: 70 Wt: 306.0 lb Gender: Female BSA: 2.37 Order #: [id number] Location: [facility] Room #: 2N15 Reading Physician: Gary Booth MD, [facility] Package Liner: Sun Sawyer Ordering Physician: Marty Bhagat MD Primary Physician: None Indications: Bacteremia Impressions: Normal left ventricular size and systolic function, LVEF 60-65%. Mild concentric left ventricular hypertrophy. Normal right ventricular size and function. Mild-moderately dilated left atrium. Aortic valve not well visualized. Appears moderately sclerotic. Moderate mitral annular calcification Valvular function was not assessed on this limited study. If valvular function needs to be assessed, a complete echocardiogram with doppler would need to be performed. Left Ventricular Wall Motion: Rest Echo Findings All wall segments showed normal motion. Findings: Study Quality * Suboptimal echo windows. ECG Findings * Normal sinus rhythm. Left Ventricle * Normal left ventricular size and systolic function, LVEF 60-65%. * Mild concentric left ventricular hypertrophy. Right Ventricle * Normal right ventricular size and function. Left Atrium * Mild-moderately dilated left atrium. Right Atrium * Normal right atrial size. Aortic Valve * Aortic valve not well visualized. Appears moderately sclerotic. Mitral Valve * Moderate mitral annular calcification Tricuspid Valve * Normal tricuspid valve structure. Pulmonic Valve * Pulmonic valve not visualized. Aorta * Normally sized aortic root. Pericardium * There is no pericardial effusion present. History Hypertension Hypercholesteremia 12/21/14 a Previous Echo was performed. Measurements: BP: 125/ 77 2D Normal Values RVIDd: 3.60 cm IVSd: 1.30 cm 0.6 - 1.0 cm LVIDd: 4.90 cm 3.7 - 5.6 cm LVPWd: 1.20 cm 0.6 - 1.1 cm LVIDs: 3.10 cm 1.5 - 3.6 cm AO: 3.50 cm < 4.0 cm LA volume: 90 Updated by Gary Booth MD, [facility] on 02/27/2016 9:52:52 AM electronically signed on 02/27/2016 9:53:37 AM with status of Final Wall Motion Wei: 1=Normal, 2=Hypokinesis, 3=Akinesis, 4=Dyskinesis, 5=Aneurysmal, 6=Hyperkinetic, X=Not Visualized (Blank)=Missing
[2016-02-27] MEDS: Silvasorb 44.4 ML TUBE TP SCH (10:22)
[2016-02-27] MEDS: Insulin LISPRO 300 UNITS/3 ML VIAL SQ SCH ×4 (10:23→20:19)
[2016-02-27] MEDS: Nystatin POWDER 30 GM BOTTLE TP SCH ×2 (10:23→20:18)
[2016-02-27] MEDS: Vancomycin 1,500 MG in D5% in Water 250 ML IVPB SCH (12:11)
--- NOTE | 2016-02-27 13:39 | Internal Med Progress Note ---
Date of Encounter: 02/27/16 Time of Encounter: 08:15 - Assessment and plan (1) Bacteremia due to Staphylococcus epidermidis Current Visit: Yes Status: Acute Assessment and plan: Continue vancomycin. 2D echocardiogram shows patient having normal ejection fraction. No clear vegetations present. Repeat cultures have been negative. Plan for tunneled PICC placement by IR for long-term IV antibiotics. (2) Acute hypercapnic respiratory failure Current Visit: Yes Status: Acute (3) Cellulitis of leg, left Current Visit: Yes Status: Acute Assessment and plan: Wound culture positive for MRSA. On vancomycin. Healing well. (4) Hyperkalemia Current Visit: Yes Status: Resolved (5) Sepsis Current Visit: Yes Status: Resolved Assessment and plan: On IV vancomycin. Repeat blood cultures have been negative. Qualifiers: Sepsis type: sepsis due to unspecified organism Qualified Code(s): A41.9 - Sepsis, unspecified organism (6) CHF (congestive heart failure) Current Visit: Yes Status: Chronic Assessment and plan: Normal ejection fraction per 2-D echo Qualifiers: Congestive heart failure type: diastolic Congestive heart failure chronicity: chronic Qualified Code(s): I50.32 - Chronic diastolic (congestive ) heart failure (7) CKD (chronic kidney disease) stage 3, GFR 30-59 ml/min Current Visit: Yes Status: Chronic Assessment and plan: Stable renal function. (8) DM type 2 (diabetes mellitus, type 2) Current Visit: Yes Status: Chronic Assessment and plan: Fairly controlled this morning. We will continue to monitor blood sugars Qualifiers: Diabetes mellitus complication status: with kidney complications Diabetes mellitus complication detail: with chronic kidney disease Diabetes mellitus chcf insulin use: without rn long term care use Chronic kidney disease stage: stage 3 (moderate) Qualified Code(s): E11.22 - Type 2 diabetes mellitus with diabetic chronic kidney disease; N18.3 - Chronic kidney disease, stage 3 ( moderate) (9) Hypertension Current Visit: Yes Status: Chronic Assessment and plan: Well-controlled. Qualifiers: Hypertension type: essential hypertension Qualified Code(s): I10 - Essential (primary) hypertension (10) Anemia Current Visit: No Status: Chronic Assessment and plan: Chronic. Stable hemoglobin levels Qualifiers: Anemia type: other cause Other causes of anemia: chronic disease, kidney Qualified Code(s): N18.9 - Chronic kidney disease, unspecified; D63.1 - Anemia in chronic kidney disease (11) Community acquired pneumonia Current Visit: Yes Status: Ruled-out - Subjective Interval history: Patient doing well overall. She has been on 4 L nasal cannula O2 supplementation especially when lying down. Denies any shortness of breath. No chest pain. No lower extremity pain. No new complaints at this time. - Constitutional Vitals: Temp Pulse Resp BP Pulse Ox 97.6 F 75 18 131/85 97 02/27/16 13:00 02/27/16 13:00 02/27/16 13:00 02/27/16 13:00 02/27/16 13:00 General appearance: Present: cooperative, A&O X 2, mild distress, morbidly obese , pleasant, obese, answers questions appropriately - Respiratory Respiratory exam: Present: CTAB. Absent: accessory muscle use, rales, rhonchi, wheezes - Cardiovascular Cardiovascular exam: Present: RRR, +S1, +S2. Absent: diastolic murmur, gallop, rubs, systolic murmur - GI/Abdominal GI/Abdominal exam: Present: normal bowel sounds, soft, no peritoneal signs. Absent: distended, tenderness - Extremities Exam Extremities exam: Present: full ROM. Absent: pedal edema Additional comments: Left lower extremity cellulitis healing well. Normal range of motion. - Neurological Exam Neurological exam: Present: CN II-XII intact, oriented X3, no focal deficits. Absent: facial droop, speech deficit - Skin Skin exam: Present: dry, intact Internal Medicine: Result - Labs CBC & Chem 7: 02/26/16 04:24 02/26/16 04:24 - ABG Interpretation ABG results: ABG ABG pH 7.29 pH Units (7.32-7.45) L 02/24/16 17:35 ABG pCO2 67 mmHg (35-45) H 02/24/16 17:35 ABG pO2 90 mmHg (85-104) 02/24/16 17:35 ABG O2 Saturation 96 % (95-98) 02/24/16 17:35 PT/INR, D-dimer PT 11.6 Seconds (9.4-12.1) 02/23/16 13:59 Consult Discharge Plan - Plan Referrals: VISITING, PHYSCIANS [Other] (THIS DOCTOR GOES TO THE [facility]IOR [facility] TO SEE PATIENT) - Attending Attestation This document has been at least partially created by Gro recognition technology by Dr. Bhagat. Errors in grammar, wording or other phrases may exist. If errors are found after the documentation is signed, they will be addressed individually in the addendum section of this document when appropriate. Medical Decision Making - MDM Narrative Medical decision making narrative: Moderate risk for complications - Lab Data Result diagrams: 02/26/16 04:24 02/26/16 04:24 Lab Results 02/23/16 02/23/16 02/24/16 Range/Units 19:52 20:50 05:22 WBC 2.9 L (4.3-11.1) K/mcL RBC 3.55 L (3.82-4.97) M/mcL Hgb 9.7 L (11.5-15.4) g/dL Hct 33.3 L (35.3-44.9) % MCV 93.8 (83.0-100.0) fL MCH 27.3 L (28.0-33.3) pg MCHC 29.1 L (31.6-35.5) g/dL RDW 15.8 H (11.5-14.5) % Plt Count 148 (140-400) K/mcL MPV 11.0 (9.4-12.4) fL Immature Gran % 0.7 (0-4) % Seg Neutrophils % 60.4 % Lymphocytes % 18.4 % Monocytes % 14.2 % Eosinophils % 5.6 % Basophils % 0.7 % Neutrophils # 1.8 (1.6-8.9) K/mcL Lymphocytes # 0.5 L (0.6-4.6) K/mcL Monocytes # 0.4 (0.0-1.3) K/mcL Eosinophils # 0.2 (0.0-0.6) K/mcL Basophils # 0.0 (0.0-0.2) K/mcL Nucleated RBCs/100 WBC (0) /100 WBC Platelet Estimate Normal (Normal) Hypochromasia Present A (Not Present) Anisocytosis 1+ A (Not Present) ABG pH (7.32-7.45) pH Units ABG pCO2 (35-45) mmHg ABG pO2 (85-104) mmHg ABG HCO3 (21-27) mEQ/L ABG Total CO2 (20-26) mEq/L ABG O2 Saturation (95-98) % ABG Base Excess (-2.0 to 3.0) mEq/L Blood Gas Modality Inspired O2 % Sodium (136-145) mEq/L Potassium 5.2 H (3.5-4.5) mEq/L Chloride (98-109) mEq/L Carbon Dioxide (19-29) mEq/L BUN (7-20) mg/dL Creatinine (0.57-1.11) mg/dL Est GFR ( Amer) (> 60) Est GFR (Non-Af Amer) (> 60) BUN/Creatinine Ratio (6-26) Glucose (70-99) mg/dL POC Glucose 98 H (58-89) Calculated Osmolality (280-300) Calcium (8.6-10.8) mg/dL Troponin I (0-0.03) ng/mL C-Reactive Protein 8 H (Less than 5) mg/L Vancomycin Trough (10-20) mcg/mL 02/24/16 02/24/16 02/24/16 Range/Units 05:22 07:43 12:01 WBC (4.3-11.1) K/mcL RBC (3.82-4.97) M/mcL Hgb (11.5-15.4) g/dL Hct (35.3-44.9) % MCV (83.0-100.0) fL MCH (28.0-33.3) pg MCHC (31.6-35.5) g/dL RDW (11.5-14.5) % Plt Count (140-400) K/mcL MPV (9.4-12.4) fL Immature Gran % (0-4) % Seg Neutrophils % % Lymphocytes % % Monocytes % % Eosinophils % % Basophils % % Neutrophils # (1.6-8.9) K/mcL Lymphocytes # (0.6-4.6) K/mcL Monocytes # (0.0-1.3) K/mcL Eosinophils # (0.0-0.6) K/mcL Basophils # (0.0-0.2) K/mcL Nucleated RBCs/100 WBC (0) /100 WBC Platelet Estimate (Normal) Hypochromasia (Not Present) Anisocytosis (Not Present) ABG pH (7.32-7.45) pH Units ABG pCO2 (35-45) mmHg ABG pO2 (85-104) mmHg ABG HCO3 (21-27) mEQ/L ABG Total CO2 (20-26) mEq/L ABG O2 Saturation (95-98) % ABG Base Excess (-2.0 to 3.0) mEq/L Blood Gas Modality Inspired O2 % Sodium 145 (136-145) mEq/L Potassium 5.0 H (3.5-4.5) mEq/L Chloride 110 H (98-109) mEq/L Carbon Dioxide 25 (19-29) mEq/L BUN 36 H (7-20) mg/dL Creatinine 2.19 H (0.57-1.11) mg/dL Est GFR ( Amer) 27 L (> 60) Est GFR (Non-Af Amer) 22 L (> 60) BUN/Creatinine Ratio 16 (6-26) Glucose 98 (70-99) mg/dL POC Glucose 102 H 227 H (58-89) Calculated Osmolality 308 H (280-300) Calcium 8.9 (8.6-10.8) mg/dL Troponin I (0-0.03) ng/mL C-Reactive Protein (Less than 5) mg/L Vancomycin Trough (10-20) mcg/mL 02/24/16 02/24/16 02/24/16 Range/Units 16:04 17:35 19:42 WBC (4.3-11.1) K/mcL RBC (3.82-4.97) M/mcL Hgb (11.5-15.4) g/dL Hct (35.3-44.9) % MCV (83.0-100.0) fL MCH (28.0-33.3) pg MCHC (31.6-35.5) g/dL RDW (11.5-14.5) % Plt Count (140-400) K/mcL MPV (9.4-12.4) fL Immature Gran % (0-4) % Seg Neutrophils % % Lymphocytes % % Monocytes % % Eosinophils % % Basophils % % Neutrophils # (1.6-8.9) K/mcL Lymphocytes # (0.6-4.6) K/mcL Monocytes # (0.0-1.3) K/mcL Eosinophils # (0.0-0.6) K/mcL Basophils # (0.0-0.2) K/mcL Nucleated RBCs/100 WBC (0) /100 WBC Platelet Estimate (Normal) Hypochromasia (Not Present) Anisocytosis (Not Present) ABG pH 7.29 L (7.32-7.45) pH Units ABG pCO2 67 H (35-45) mmHg ABG pO2 90 (85-104) mmHg ABG HCO3 32.2 H (21-27) mEQ/L ABG Total CO2 34.3 H (20-26) mEq/L ABG O2 Saturation 96 (95-98) % ABG Base Excess 4.0 H (-2.0 to 3.0) mEq/L Blood Gas Modality [place] Inspired O2 36 % Sodium (136-145) mEq/L Potassium (3.5-4.5) mEq/L Chloride (98-109) mEq/L Carbon Dioxide (19-29) mEq/L BUN (7-20) mg/dL Creatinine (0.57-1.11) mg/dL Est GFR ( Amer) (> 60) Est GFR (Non-Af Amer) (> 60) BUN/Creatinine Ratio (6-26) Glucose (70-99) mg/dL POC Glucose 114 H 142 H (58-89) Calculated Osmolality (280-300) Calcium (8.6-10.8) mg/dL Troponin I (0-0.03) ng/mL C-Reactive Protein (Less than 5) mg/L Vancomycin Trough (10-20) mcg/mL 02/25/16 02/25/16 02/25/16 Range/Units 05:51 05:51 07:46 WBC 3.2 L (4.3-11.1) K/mcL RBC 3.74 L (3.82-4.97) M/mcL Hgb 10.0 L (11.5-15.4) g/dL Hct 34.1 L (35.3-44.9) % MCV 91.2 (83.0-100.0) fL MCH 26.7 L (28.0-33.3) pg MCHC 29.3 L (31.6-35.5) g/dL RDW 15.7 H (11.5-14.5) % Plt Count 145 (140-400) K/mcL MPV 11.3 (9.4-12.4) fL Immature Gran % 0.6 (0-4) % Seg Neutrophils % 62.4 % Lymphocytes % 16.6 % Monocytes % 13.2 % Eosinophils % 6.3 % Basophils % 0.9 % Neutrophils # 2.0 (1.6-8.9) K/mcL Lymphocytes # 0.5 L (0.6-4.6) K/mcL Monocytes # 0.4 (0.0-1.3) K/mcL Eosinophils # 0.2 (0.0-0.6) K/mcL Basophils # 0.0 (0.0-0.2) K/mcL Nucleated RBCs/100 WBC (0) /100 WBC Platelet Estimate (Normal) Hypochromasia (Not Present) Anisocytosis (Not Present) ABG pH (7.32-7.45) pH Units ABG pCO2 (35-45) mmHg ABG pO2 (85-104) mmHg ABG HCO3 (21-27) mEQ/L ABG Total CO2 (20-26) mEq/L ABG O2 Saturation (95-98) % ABG Base Excess (-2.0 to 3.0) mEq/L Blood Gas Modality Inspired O2 % Sodium 142 (136-145) mEq/L Potassium 4.3 (3.5-4.5) mEq/L Chloride 104 (98-109) mEq/L Carbon Dioxide 25 (19-29) mEq/L BUN 40 H (7-20) mg/dL Creatinine 1.94 H (0.57-1.11) mg/dL Est GFR ( Amer) 31 L (> 60) Est GFR (Non-Af Amer) 26 L (> 60) BUN/Creatinine Ratio 21 (6-26) Glucose 100 H (70-99) mg/dL POC Glucose 100 H (58-89) Calculated Osmolality 304 H (280-300) Calcium 9.0 (8.6-10.8) mg/dL Troponin I (0-0.03) ng/mL C-Reactive Protein (Less than 5) mg/L Vancomycin Trough (10-20) mcg/mL 02/25/16 02/25/16 02/25/16 Range/Units 11:45 16:14 19:52 WBC (4.3-11.1) K/mcL RBC (3.82-4.97) M/mcL Hgb (11.5-15.4) g/dL Hct (35.3-44.9) % MCV (83.0-100.0) fL MCH (28.0-33.3) pg MCHC (31.6-35.5) g/dL RDW (11.5-14.5) % Plt Count (140-400) K/mcL MPV (9.4-12.4) fL Immature Gran % (0-4) % Seg Neutrophils % % Lymphocytes % % Monocytes % % Eosinophils % % Basophils % % Neutrophils # (1.6-8.9) K/mcL Lymphocytes # (0.6-4.6) K/mcL Monocytes # (0.0-1.3) K/mcL Eosinophils # (0.0-0.6) K/mcL Basophils # (0.0-0.2) K/mcL Nucleated RBCs/100 WBC (0) /100 WBC Platelet Estimate (Normal) Hypochromasia (Not Present) Anisocytosis (Not Present) ABG pH (7.32-7.45) pH Units ABG pCO2 (35-45) mmHg ABG pO2 (85-104) mmHg ABG HCO3 (21-27) mEQ/L ABG Total CO2 (20-26) mEq/L ABG O2 Saturation (95-98) % ABG Base Excess (-2.0 to 3.0) mEq/L Blood Gas Modality Inspired O2 % Sodium (136-145) mEq/L Potassium (3.5-4.5) mEq/L Chloride (98-109) mEq/L Carbon Dioxide (19-29) mEq/L BUN (7-20) mg/dL Creatinine (0.57-1.11) mg/dL Est GFR ( Amer) (> 60) Est GFR (Non-Af Amer) (> 60) BUN/Creatinine Ratio (6-26) Glucose (70-99) mg/dL POC Glucose 156 H 112 H 137 H (58-89) Calculated Osmolality (280-300) Calcium (8.6-10.8) mg/dL Troponin I (0-0.03) ng/mL C-Reactive Protein (Less than 5) mg/L Vancomycin Trough (10-20) mcg/mL 02/26/16 02/26/16 02/26/16 Range/Units 04:24 04:24 04:24 WBC 3.0 L (4.3-11.1) K/mcL RBC 3.63 L (3.82-4.97) M/mcL Hgb 9.8 L (11.5-15.4) g/dL Hct 32.7 L (35.3-44.9) % MCV 90.1 (83.0-100.0) fL MCH 27.0 L (28.0-33.3) pg MCHC 30.0 L (31.6-35.5) g/dL RDW 15.1 H (11.5-14.5) % Plt Count 149 (140-400) K/mcL MPV 11.4 (9.4-12.4) fL Immature Gran % 0.3 (0-4) % Seg Neutrophils % 62.5 % Lymphocytes % 14.6 % Monocytes % 13.6 % Eosinophils % 8.3 % Basophils % 0.7 % Neutrophils # 1.9 (1.6-8.9) K/mcL Lymphocytes # 0.4 L (0.6-4.6) K/mcL Monocytes # 0.4 (0.0-1.3) K/mcL Eosinophils # 0.3 (0.0-0.6) K/mcL Basophils # 0.0 (0.0-0.2) K/mcL Nucleated RBCs/100 WBC 0.7 H (0) /100 WBC Platelet Estimate (Normal) Hypochromasia (Not Present) Anisocytosis (Not Present) ABG pH (7.32-7.45) pH Units ABG pCO2 (35-45) mmHg ABG pO2 (85-104) mmHg ABG HCO3 (21-27) mEQ/L ABG Total CO2 (20-26) mEq/L ABG O2 Saturation (95-98) % ABG Base Excess (-2.0 to 3.0) mEq/L Blood Gas Modality Inspired O2 % Sodium 141 (136-145) mEq/L Potassium 4.0 (3.5-4.5) mEq/L Chloride 100 (98-109) mEq/L Carbon Dioxide 32 H (19-29) mEq/L BUN 45 H (7-20) mg/dL Creatinine 1.83 H (0.57-1.11) mg/dL Est GFR ( Amer) 33 L (> 60) Est GFR (Non-Af Amer) 27 L (> 60) BUN/Creatinine Ratio 25 (6-26) Glucose 107 H (70-99) mg/dL POC Glucose (58-89) Calculated Osmolality 304 H (280-300) Calcium 9.0 (8.6-10.8) mg/dL Troponin I 0.06 H* (0-0.03) ng/mL C-Reactive Protein (Less than 5) mg/L Vancomycin Trough (10-20) mcg/mL 02/26/16 02/26/16 02/26/16 Range/Units 07:12 10:50 11:15 WBC (4.3-11.1) K/mcL RBC (3.82-4.97) M/mcL Hgb (11.5-15.4) g/dL Hct (35.3-44.9) % MCV (83.0-100.0) fL MCH (28.0-33.3) pg MCHC (31.6-35.5) g/dL RDW (11.5-14.5) % Plt Count (140-400) K/mcL MPV (9.4-12.4) fL Immature Gran % (0-4) % Seg Neutrophils % % Lymphocytes % % Monocytes % % Eosinophils % % Basophils % % Neutrophils # (1.6-8.9) K/mcL Lymphocytes # (0.6-4.6) K/mcL Monocytes # (0.0-1.3) K/mcL Eosinophils # (0.0-0.6) K/mcL Basophils # (0.0-0.2) K/mcL Nucleated RBCs/100 WBC (0) /100 WBC Platelet Estimate (Normal) Hypochromasia (Not Present) Anisocytosis (Not Present) ABG pH (7.32-7.45) pH Units ABG pCO2 (35-45) mmHg ABG pO2 (85-104) mmHg ABG HCO3 (21-27) mEQ/L ABG Total CO2 (20-26) mEq/L ABG O2 Saturation (95-98) % ABG Base Excess (-2.0 to 3.0) mEq/L Blood Gas Modality Inspired O2 % Sodium (136-145) mEq/L Potassium (3.5-4.5) mEq/L Chloride (98-109) mEq/L Carbon Dioxide (19-29) mEq/L BUN (7-20) mg/dL Creatinine (0.57-1.11) mg/dL Est GFR ( Amer) (> 60) Est GFR (Non-Af Amer) (> 60) BUN/Creatinine Ratio (6-26) Glucose (70-99) mg/dL POC Glucose 129 H 189 H (58-89) Calculated Osmolality (280-300) Calcium (8.6-10.8) mg/dL Troponin I (0-0.03) ng/mL C-Reactive Protein (Less than 5) mg/L Vancomycin Trough 18.4 (10-20) mcg/mL 02/26/16 02/26/16 Range/Units 16:59 19:40 WBC (4.3-11.1) K/mcL RBC (3.82-4.97) M/mcL Hgb (11.5-15.4) g/dL Hct (35.3-44.9) % MCV (83.0-100.0) fL MCH (28.0-33.3) pg MCHC (31.6-35.5) g/dL RDW (11.5-14.5) % Plt Count (140-400) K/mcL MPV (9.4-12.4) fL Immature Gran % (0-4) % Seg Neutrophils % % Lymphocytes % % Monocytes % % Eosinophils % % Basophils % % Neutrophils # (1.6-8.9) K/mcL Lymphocytes # (0.6-4.6) K/mcL Monocytes # (0.0-1.3) K/mcL Eosinophils # (0.0-0.6) K/mcL Basophils # (0.0-0.2) K/mcL Nucleated RBCs/100 WBC (0) /100 WBC Platelet Estimate (Normal) Hypochromasia (Not Present) Anisocytosis (Not Present) ABG pH (7.32-7.45) pH Units ABG pCO2 (35-45) mmHg ABG pO2 (85-104) mmHg ABG HCO3 (21-27) mEQ/L ABG Total CO2 (20-26) mEq/L ABG O2 Saturation (95-98) % ABG Base Excess (-2.0 to 3.0) mEq/L Blood Gas Modality Inspired O2 % Sodium (136-145) mEq/L Potassium (3.5-4.5) mEq/L Chloride (98-109) mEq/L Carbon Dioxide (19-29) mEq/L BUN (7-20) mg/dL Creatinine (0.57-1.11) mg/dL Est GFR ( Amer) (> 60) Est GFR (Non-Af Amer) (> 60) BUN/Creatinine Ratio (6-26) Glucose (70-99) mg/dL POC Glucose 175 H 168 H (58-89) Calculated Osmolality (280-300) Calcium (8.6-10.8) mg/dL Troponin I (0-0.03) ng/mL C-Reactive Protein (Less than 5) mg/L Vancomycin Trough (10-20) mcg/mL
[2016-02-27] MEDS: risperiDONE 1 MG TABLET PO SCH (20:18)
[2016-02-28] MEDS: Ipratropium/Albuterol Neb 3 ML IH SCH ×3 (05:00→16:52)
[2016-02-28] MEDS: *HR* Heparin 5,000 UNIT/ML VIAL SQ SCH (05:11)
[2016-02-28] MEDS ORDERED: Heparin 1,000 UNITS/500 mL NS 500 ML ONE (08:30)
--- NOTE | 2016-02-28 09:23 | IR Procedure Note ---
Date of procedure: 02/28/16 Consent Obtained: Written consent Timeout: Correct patient and procedure verified, Correct site verified, Time out performed, Skin prep completed Indications: needs senior care antibiotics Procedure Performed: tunneled picc Site/Technique: rt IJ Results/Findings: tip in SVC Estimated blood loss (cc): 10 Complications: None; Tolerated procedure well Post Procedure Treatment Plan: can use
[2016-02-28] MEDS: Insulin LISPRO 300 UNITS/3 ML VIAL SQ SCH ×2 (09:42→12:40)
[2016-02-28] MEDS: Nystatin POWDER 30 GM BOTTLE TP SCH (10:16)
[2016-02-28] MEDS: Silvasorb 44.4 ML TUBE TP SCH (10:16)
[2016-02-28 11:12] VITALS: BP 130/82
--- NOTE | 2016-02-28 12:44 | Discharge Summary ---
Date of Encounter: 02/28/16 Time of Encounter: 12:43 - Discharge Diagnosis (1) Bacteremia due to Staphylococcus epidermidis Priority: Primary Status: Acute (2) Acute hypercapnic respiratory failure Priority: Secondary Status: Acute (3) Cellulitis of leg, left Priority: Secondary Status: Acute (4) Hyperkalemia Priority: Secondary Status: Resolved (5) Sepsis Priority: Secondary Status: Resolved Qualifiers: Sepsis type: sepsis due to unspecified organism Qualified Code(s): A41.9 - Sepsis, unspecified organism (6) CHF (congestive heart failure) Priority: Secondary Status: Chronic Qualifiers: Congestive heart failure type: diastolic Congestive heart failure chronicity: chronic Qualified Code(s): I50.32 - Chronic diastolic (congestive ) heart failure (7) CKD (chronic kidney disease) stage 3, GFR 30-59 ml/min Priority: Secondary Status: Chronic (8) DM type 2 (diabetes mellitus, type 2) Priority: Secondary Status: Chronic Qualifiers: Diabetes mellitus complication status: with kidney complications Diabetes mellitus complication detail: with chronic kidney disease Diabetes mellitus moth exterminator insulin use: without residential use Chronic kidney disease stage: stage 3 (moderate) Qualified Code(s): E11.22 - Type 2 diabetes mellitus with diabetic chronic kidney disease; N18.3 - Chronic kidney disease, stage 3 ( moderate) (9) Hypertension Priority: Secondary Status: Chronic Qualifiers: Hypertension type: essential hypertension Qualified Code(s): I10 - Essential (primary) hypertension (10) Anemia Priority: Secondary Status: Chronic Qualifiers: Anemia type: other cause Other causes of anemia: chronic disease, kidney Qualified Code(s): N18.9 - Chronic kidney disease, unspecified; D63.1 - Anemia in chronic kidney disease (11) Community acquired pneumonia Priority: Secondary Status: Ruled-out - Discharge Medications Prescriptions: Vancomycin [Vancocin] 1,000 mg IV DAILY 8 Days Home Medications: RisperiDONE [RisperDAL] 1 mg PO HS #30 tablet 12/31/14 [Rx] Allopurinol [Zyloprim] 100 mg PO DAILY 02/24/16 [History] Escitalopram [Lexapro] 5 mg PO DAILY 02/24/16 [History] Escitalopram [Lexapro] 10 mg PO DAILY 02/24/16 [History] Gemfibrozil [Lopid] 600 mg PO BIDWM 02/24/16 [History] Levothyroxine [Synthroid] 100 mcg PO DAILY 02/24/16 [History] Lisinopril 2.5 mg PO DAILY 02/24/16 [History] Metformin HCl [Glucophage] 1,000 mg PO BID 02/24/16 [History] NIFEdipine [Afeditab Cr] 30 mg PO DAILY 02/24/16 [History] Nystatin POWDER [Nystop] 1 appl TP BID 02/24/16 [History] Rosuvastatin Calcium [Crestor] 5 mg PO DAILY 02/24/16 [History] Vancomycin [Vancocin] 1,000 mg IV DAILY 8 Days 02/28/16 [Rx] Allergies/Adverse Reactions: Allergies sulfamethoxazole [From Bactrim] Allergy (Verified 12/26/14 03:50) Rash trimethoprim [From Bactrim] Allergy (Verified 12/26/14 03:50) Rash Procedures/tests Complete & Pending: Procedures Performed prior 72 hours Category Date Time Status IR cvc insrt tunnel wo prt/stone gang sawyer [IR] Routine IR 02/28/16 Completed EV limited echocardiogram Routine Y 02/27/16 15:19 Completed Date of admission: 02/23/16 18:28 Primary care physician: PCP NO Consults: 02/24/16 16:59 Consult to Wound Care [CONS] Routine Reason for Consult: LEft foot wound, with cellulitis, MRSA Call Completed: No 02/24/16 17:12 Consult to License Inspector [CONS] Routine Reason for SW Consult: Discharge planning 02/25/16 08:54 Consult to Invasive Line Access Team [CONS] Routine Reason for Consult: Retirement antibiotic therapy Line Type: EPIV Consult to Occupational Therapy [CONS] Routine Comment: Evaluate, develop and implement POC Consult to Physical Therapy [CONS] Routine Comment: Evaluate, develop and implement POC 02/27/16 09:37 Consult to Invasive Line Access Team [CONS] Routine Reason for Consult: Picc Line Insertion Line Type: PICC 02/27/16 12:13 Consult to Interventional Radiology [CONS] Routine Consulting Provider: Radiology Interventional Cols Reason for Consult: Tunneled PICC placement Time Notified: 12:13 Call Completed: Yes Discharging clinician: Marty Bhagat Anticipated date of discharge: 02/28/16 - Patient Status Disposition: Transfer SNF Condition: Good Functional capacity at discharge: uses cane/walker Overall status at discharge: patient is progressing back to baseline - Discharge Instructions Instructions: Cellulitis (DC), Sepsis (DC) Follow Up With: VISITING, PHYSCIANS [Other] (THIS DOCTOR GOES TO THE LONG-TERM TO SEE PATIENT) - Diet and Activity Activity: as per physical therapy Diet: diabetic diet, low fat, low cholesterol Hospital course: Ms. Madera is a 70 year old female with a history of chronic kidney disease stage III, diabetes, hyperlipidemia, hypertension was admitted here with sepsis related to cellulitis in the left lower extremity. Initially there was concern for pneumonia with chest x-rays have not shown any acute infiltrate. Patient was also having hypoxic hypercapnic respiratory failure on presentation. This is believed to be due to combination of obesity hypoventilation and obstructive sleep apnea. Patient was treated with O2 supplementation and intermittent BiPAP use. Improvement in symptoms. She was also treated with intravenous antibiotics for her sepsis. Patient began to grow staph epidermidis that she is resistant to methicillin in her blood. She also grew MRSA from her left cellulitis wound. As such she will need at least 2 weeks of intravenous antibiotics. A tunneled PICC catheter has been placed for this reason. Patient has had negative blood cultures since her initial set. She also had a 2 -D echocardiogram which did not show any vegetations and her valves. She is feeling much better today and is stable to be discharged to skilled rehabilitation for IV antibiotics and rehabilitation. On presentation, patient also had hypotension which was treated and her potassium level is normal now. - Time Spent with Patient Total time spent providing and/or coordinating discharge services: Greater than 30 minutes (45 min) - Constitutional Vitals: Temp Pulse Resp BP Pulse Ox 97.5 F L 76 16 130/82 96 02/28/16 11:11 02/28/16 11:11 02/28/16 11:11 02/28/16 11:11 02/28/16 11:11 General appearance: Present: cooperative, A&O X 2, mild distress, morbidly obese , pleasant, obese, answers questions appropriately - Neck Neck exam general surgery: Present: supple, trachea midline. Absent: lymphadenopathy - Respiratory Respiratory exam: Present: CTAB. Absent: accessory muscle use, rales, rhonchi, wheezes - GI/Abdominal GI/Abdominal exam: Present: normal bowel sounds, soft, no peritoneal signs. Absent: distended, tenderness - Extremities Exam Extremities exam: Present: warm, radial pulses palpable and symetrical. Absent : calf tenderness, cyanotic, pedal edema Additional comments: left lower extremity erythema and cellulitis improving - Neurological Exam Neurological exam: Present: CN II-XII intact, oriented X3, no focal deficits. Absent: facial droop, speech deficit - Skin Skin exam: Present: dry, intact - Attending Attestation This document has been at least partially created by [employer] recognition technology by Dr. Bhagat. Errors in grammar, wording or other phrases may exist. If errors are found after the documentation is signed, they will be addressed individually in the addendum section of this document when appropriate.
--- NOTE | 2016-02-28 12:52 | Discharge Summary ---
Date of Encounter: 02/28/16 Time of Encounter: 12:51 - Discharge Diagnosis (1) Bacteremia due to Staphylococcus epidermidis Priority: Primary Status: Acute (2) Acute hypercapnic respiratory failure Priority: Secondary Status: Acute (3) Cellulitis of leg, left Priority: Secondary Status: Acute (4) Hyperkalemia Priority: Secondary Status: Resolved (5) Sepsis Priority: Secondary Status: Resolved Qualifiers: Sepsis type: sepsis due to unspecified organism Qualified Code(s): A41.9 - Sepsis, unspecified organism (6) CHF (congestive heart failure) Priority: Secondary Status: Chronic Qualifiers: Congestive heart failure type: diastolic Congestive heart failure chronicity: chronic Qualified Code(s): I50.32 - Chronic diastolic (congestive ) heart failure (7) CKD (chronic kidney disease) stage 3, GFR 30-59 ml/min Priority: Secondary Status: Chronic (8) DM type 2 (diabetes mellitus, type 2) Priority: Secondary Status: Chronic Qualifiers: Diabetes mellitus complication status: with kidney complications Diabetes mellitus complication detail: with chronic kidney disease Diabetes mellitus tank terminal gauger insulin use: without mcc use Chronic kidney disease stage: stage 3 (moderate) Qualified Code(s): E11.22 - Type 2 diabetes mellitus with diabetic chronic kidney disease; N18.3 - Chronic kidney disease, stage 3 ( moderate) (9) Hypertension Priority: Secondary Status: Chronic Qualifiers: Hypertension type: essential hypertension Qualified Code(s): I10 - Essential (primary) hypertension (10) Anemia Priority: Secondary Status: Chronic Qualifiers: Anemia type: other cause Other causes of anemia: chronic disease, kidney Qualified Code(s): N18.9 - Chronic kidney disease, unspecified; D63.1 - Anemia in chronic kidney disease (11) Community acquired pneumonia Priority: Secondary Status: Ruled-out - Discharge Medications Home Medications: RX: RisperiDONE [RisperDAL] 1 mg PO HS #30 tablet 12/31/14 [Rx] RX: Cephalexin [Keflex] 500 mg PO QID 10 Days 02/22/16 [Rx] RX: Allopurinol [Zyloprim] 100 mg PO DAILY 02/24/16 [History] RX: Escitalopram [Lexapro] 5 mg PO DAILY 02/24/16 [History] RX: Escitalopram [Lexapro] 10 mg PO DAILY 02/24/16 [History] RX: Gemfibrozil [Lopid] 600 mg PO BIDWM 02/24/16 [History] RX: Levothyroxine [Synthroid] 100 mcg PO DAILY 02/24/16 [History] RX: Lisinopril 2.5 mg PO DAILY 02/24/16 [History] RX: Metformin HCl [Glucophage] 1,000 mg PO BID 02/24/16 [History] RX: NIFEdipine [Afeditab Cr] 30 mg PO DAILY 02/24/16 [History] RX: Nystatin POWDER [Nystop] 1 appl TP BID 02/24/16 [History] RX: Rosuvastatin Calcium [Crestor] 5 mg PO DAILY 02/24/16 [History] Allergies/Adverse Reactions: Allergies sulfamethoxazole [From Bactrim] Allergy (Verified 12/26/14 03:50) Rash trimethoprim [From Bactrim] Allergy (Verified 12/26/14 03:50) Rash Procedures/tests Complete & Pending: Procedures Performed prior 72 hours Category Date Time Status IR cvc insrt tunnel wo prt/brazer electronic [IR] Routine IR 02/28/16 Completed EV limited echocardiogram Routine Y 02/27/16 15:19 Completed Date of admission: 02/23/16 18:28 Primary care physician: PCP NO Consults: 02/24/16 16:59 Consult to Wound Care [CONS] Routine Reason for Consult: LEft foot wound, with cellulitis, MRSA Call Completed: No 02/24/16 17:12 Consult to Truck Crane Operator [CONS] Routine Reason for SW Consult: Discharge planning 02/25/16 08:54 Consult to Invasive Line Access Team [CONS] Routine Reason for Consult: Usp antibiotic therapy Line Type: EPIV Consult to Occupational Therapy [CONS] Routine Comment: Evaluate, develop and implement POC Consult to Physical Therapy [CONS] Routine Comment: Evaluate, develop and implement POC 02/27/16 09:37 Consult to Invasive Line Access Team [CONS] Routine Reason for Consult: Picc Line Insertion Line Type: PICC 02/27/16 12:13 Consult to Interventional Radiology [CONS] Routine Consulting Provider: Radiology Interventional Cols Reason for Consult: Tunneled PICC placement Time Notified: 12:13 Call Completed: Yes Discharging clinician: Marty Bhagat Anticipated date of discharge: 02/28/16 - Patient Status Disposition: Transfer SNF Condition: Good - Discharge Instructions Instructions: Cellulitis (DC), Sepsis (DC) Follow Up With: VISITING, PHYSCIANS [Other] (THIS DOCTOR GOES TO THE LONG TERM TO SEE PATIENT) Hospital course: Ms. Madera is a 70 year old female with a history of chronic kidney disease stage III, diabetes, hyperlipidemia, hypertension was admitted here with sepsis related to cellulitis in the left lower extremity. Initially there was concern for pneumonia with chest x-rays have not shown any acute infiltrate. Patient was also having hypoxic hypercapnic respiratory failure on presentation. This is believed to be due to combination of obesity hypoventilation and obstructive sleep apnea. Patient was treated with O2 supplementation and intermittent BiPAP use. Improvement in symptoms. She was also treated with intravenous antibiotics for her sepsis. Patient began to grow staph epidermidis that she is resistant to methicillin in her blood. She also grew MRSA from her left cellulitis wound. As such she will need at least 2 weeks of intravenous antibiotics. A tunneled PICC catheter has been placed for this reason. Patient has had negative blood cultures since her initial set. She also had a 2 -D echocardiogram which did not show any vegetations and her valves. She is feeling much better today and is stable to be discharged to skilled rehabilitation for IV antibiotics and rehabilitation. On presentation, patient also had hypotension which was treated and her potassium level is normal now. - Time Spent with Patient Total time spent providing and/or coordinating discharge services: Greater than 30 minutes (45 min) - Constitutional Vitals: Temp Pulse Resp BP Pulse Ox 97.5 F L 76 16 130/82 96 02/28/16 11:11 02/28/16 11:11 02/28/16 12:46 02/28/16 11:11 02/28/16 12:46 General appearance: Present: cooperative, A&O X 2, mild distress, morbidly obese , pleasant, obese, answers questions appropriately
--- NOTE | 2016-02-28 13:00 | Physician Discharge Referral ---
Extended[facility] Referral Info Transfer To: ECF Provider in Charge after Transfer: PCP Institutional Level of Care: Skilled - Diagnosis (1) Bacteremia due to Staphylococcus epidermidis Priority: Primary Status: Acute (2) Acute hypercapnic respiratory failure Priority: Secondary Status: Acute (3) Cellulitis of leg, left Priority: Secondary Status: Acute (4) Hyperkalemia Priority: Secondary Status: Resolved (5) Sepsis Priority: Secondary Status: Resolved (6) CHF (congestive heart failure) Priority: Secondary Status: Chronic (7) CKD (chronic kidney disease) stage 3, GFR 30-59 ml/min Priority: Secondary Status: Chronic (8) DM type 2 (diabetes mellitus, type 2) Priority: Secondary Status: Chronic (9) Hypertension Priority: Secondary Status: Chronic (10) Anemia Priority: Secondary Status: Chronic (11) Community acquired pneumonia Priority: Secondary Status: Ruled-out Prognosis: Fair Aware of Diagnosis: Patient Aware of Prognosis: Patient - Transfer Medications Home Medications: RX: RisperiDONE [RisperDAL] 1 mg PO HS #30 tablet 12/31/14 [Rx] RX: Cephalexin [Keflex] 500 mg PO QID 10 Days 02/22/16 [Rx] RX: Allopurinol [Zyloprim] 100 mg PO DAILY 02/24/16 [History] RX: Escitalopram [Lexapro] 5 mg PO DAILY 02/24/16 [History] RX: Escitalopram [Lexapro] 10 mg PO DAILY 02/24/16 [History] RX: Gemfibrozil [Lopid] 600 mg PO BIDWM 02/24/16 [History] RX: Levothyroxine [Synthroid] 100 mcg PO DAILY 02/24/16 [History] RX: Lisinopril 2.5 mg PO DAILY 02/24/16 [History] RX: Metformin HCl [Glucophage] 1,000 mg PO BID 02/24/16 [History] RX: NIFEdipine [Afeditab Cr] 30 mg PO DAILY 02/24/16 [History] RX: Nystatin POWDER [Nystop] 1 appl TP BID 02/24/16 [History] RX: Rosuvastatin Calcium [Crestor] 5 mg PO DAILY 02/24/16 [History] Allergies/Adverse Reactions: Allergies sulfamethoxazole [From Bactrim] Allergy (Verified 12/26/14 03:50) Rash trimethoprim [From Bactrim] Allergy (Verified 12/26/14 03:50) Rash - Respiratory Orders Oxygen / L per min (Keep sats >92%) Smoking Cessation: Smoking cessation has been advised. For more information, call the [employer] Tobacco Quit Line at 7-461-ROID-NOW. - Lab Orders Lab Orders: Other (include drug levels w/frequency) (Vancomycin trough levels on Wednesday03/02/2016) - Ancillary Orders May consult with Dentist, Independent Film Maker, Rubber Press Tender PRN - Advance Directives Code Status: Full Code - Mobility Orders Other (per PT evaluation) - Rehabiliation Orders Rehab Potential: Fair Rehab Orders: Evaluation for Physical Therapy, Evaluation for Occupational Therapy - Treatments Skin tear care topically daily PRN per policy List/Other: Wound Care: abrasion to left distal laird - cleanse daily with dermal wound cleanser (CSS - Microklenz) - pat dry - apply Silvasorb Gel to the wound - cover with adaptic gauze 2-3 layers (No telfa) - pad with 4x4s - wrap with kerlix - hold secure with small amount of tape - do not place tape on skin - change daily - Diet Orders Renal, Cardiac (and diabetic) CERTIFICATION: I certify that the transfer of the above named patient to an Extended Care Facility is necessary for the continuing treatment of the diagnosis listed. The above information is true and accurate reflection of patient's current condition. Confidential - Redisclosure prohibited without a patient's written consent.
[2016-02-28] MEDS ORDERED: Aminoglycoside Consult 1 EACH MC ONE (17:14)
[2016-02-28] MEDS ORDERED: Vancomycin 1,000 MG in D5% in Water 250 ML IVPB SCH (20:00)
== END 2016-02-28 17:15 | DRG 871 ==
LOC: EMEROO 13:24 → 2NNU 18:28 → SUATTDRO 18:28 → 2NNU 20:18
PROVIDERS: ADMIT Internal Medicine; ATTEND Internal Medicine

== ENCOUNTER 2016-04-13 13:29 | Inpatient (IN) ==
[2016-04-13 14:20] LABS: Basophils % 0.5 %; Eosinophils # 0.1 K/mcL (0.0-0.6); Eosinophils % 2.4 %; Hematocrit 35.2 % (35.3-44.9); Immature Granulocytes % 1.1 % (0-4); Lymphocytes # 0.4 K/mcL (0.6-4.6); Lymphocytes % 11.6 %; Mean Corpuscular HGB Conc 28.4 g/dL (31.6-35.5); Mean Corpuscular Hemoglobin 25.7 pg (28.0-33.3); Mean Corpuscular Volume 90.5 fL (83.0-100.0); Mean Platelet Volume 11.4 fL (9.4-12.4); Monocytes # 0.4 K/mcL (0.0-1.3); Neutrophils # 2.7 K/mcL (1.6-8.9); Platelet Count 154 K/mcL (140-400); Red Blood Count 3.89 M/mcL (3.82-4.97); Segmented Neutrophils % 73.4 %
[2016-04-13 14:31] LABS: INR 1.1; Prothrombin Time 11.4 Seconds (9.4-12.1)
[2016-04-13 14:34] LABS: Activated Partial Thrombo Time 29.9 Seconds (26.0-36.0); Calcium 9.2 mg/dL (8.6-10.8); Potassium 6.4 mEq/L (3.5-4.5)
[2016-04-13 14:37] LABS: Albumin 3.2 g/dL (3.5-5.0); Albumin/Globulin Ratio 0.9 (1.1-2.2); Bilirubin,Direct 0.1 mg/dL (0.0-0.5); Bilirubin,Indirect 0.2 mg/dL (0.0-1.2); Bilirubin,Total 0.3 mg/dL (0.2-1.2); Globulin 3.7 g/dL (2.4-3.5); Total Protein 6.9 g/dL (6.0-8.3)
[2016-04-13] MEDS ORDERED: 0.9 % Sodium Chloride 1,000 ML IVC ONE (15:02)
[2016-04-13 15:05] LABS: Hypochromasia Present (Not Present); Macrocytosis Present (Not Present); Ovalocytes 1+ (Not Present); Platelet Estimate Slight Decrease (Normal)
[2016-04-13] MEDS ORDERED: Insulin Human Regular 10 UNIT in 0.9 % Sodium Chloride 10 ML IV ONE (15:27)
[2016-04-13] MEDS ORDERED: *HR* Dextrose 50 % in Water (Syg) 50 ML SYRINGE IVP ONE (15:27)
--- NOTE | 2016-04-13 15:31 | Emergency Department Note ---
Disposition Clinical Impression: Hyperkalemia, Generalized weakness Vomiting Qualifiers: Vomiting type: unspecified Vomiting Intractability: non-intractable Nausea presence: with nausea Qualified Code(s): R11.2 - Nausea with vomiting, unspecified Acute kidney failure Qualifiers: Acute renal failure type: unspecified Qualified Code(s): N17.9 - Acute kidney failure, unspecified Disposition: Admitted As Inpatient Condition: Fair Referrals: NO,PCP [Primary Care Provider] - Forms: ED Satisfaction Letter Nausea/Vomiting/Diarrhea HPI - General Chief complaint: ED Nausea/Vomiting/Diarrhea Stated complaint: N/V Time Seen by Provider: 04/13/16 13:31 Source: patient, EMS Limitations: altered mental status Nursing Notes Reviewed: Yes Vital Signs Reviewed: Yes - History of Present Illness HPI Narrative: Is a 62-year-old female who states for the last couple days she has had vomiting decreased appetite just weakness and not feeling well. She denies any chest pain palpitations shortness of breath or syncope. Pt Subjective Complaint: nausea, vomiting Consistency: constant Improves with: nothing Worsens with: nonthing Associated symptoms: Reports: nausea/vomiting, weakness. Denies: rash, syncope - Related Data Home Medications Medication Instructions Recorded Confirmed Allopurinol [Zyloprim] 100 mg PO DAILY 02/24/16 02/24/16 Escitalopram [Lexapro] 5 mg PO DAILY 02/24/16 02/24/16 Escitalopram [Lexapro] 10 mg PO DAILY 02/24/16 02/24/16 Gemfibrozil [Lopid] 600 mg PO BIDWM 02/24/16 02/24/16 Levothyroxine [Synthroid] 100 mcg PO DAILY 02/24/16 02/24/16 Lisinopril 2.5 mg PO DAILY 02/24/16 02/24/16 Metformin HCl [Glucophage] 1,000 mg PO BID 02/24/16 02/24/16 NIFEdipine [Afeditab Cr] 30 mg PO DAILY 02/24/16 02/24/16 Nystatin POWDER [Nystop] 1 appl TP BID 02/24/16 02/24/16 Rosuvastatin Calcium [Crestor] 5 mg PO DAILY 02/24/16 02/24/16 Previous Rx's Medication Instructions Recorded RisperiDONE [RisperDAL] 1 mg PO HS #30 tablet 12/31/14 Vancomycin [Vancocin] 1,000 mg IV DAILY 8 Days 02/28/16 Meclizine [Antivert] 25 mg PO TID PRN #30 tablet 04/11/16 Allergies Allergy/AdvReac Type Severity Reaction Status Date / Time sulfamethoxazole Allergy Rash Verified 12/26/14 03:50 [From Bactrim] trimethoprim [From Bactrim] Allergy Rash Verified 12/26/14 03:50 All systems ED: reviewed and negative except as stated. Constitutional: Reports: weakness. Denies: fever Respiratory: Reports: cough Gastrointestinal: Reports: nausea, vomiting. Denies: diarrhea Past Medical History - Past Medical History Source: patient, nursing notes reviewed Medical history: Reports: diabetes, hyperlipidemia, hypertension, osteoporosis, other Surgical history: Reports: cholecystectomy Psychiatric history: Reports: anxiety, depression BARREL BURNER history: Reports: no BARREL BURNER history - Social History Smoking Status: Never smoker Smokeless Tobacco Status: No Alcohol use: Reports: none Drug use: Reports: none Physical Exam - General Limitations: altered mental status General appearance: alert - Head Head exam: atraumatic, normocephalic, normal inspection - Eye Eye exam: Present: normal appearance, PERRL, EOMI - Expanded Eye Exam Pupils: Left: reactive - ENT ENT exam: normal exam, normal oropharynx, mucous membranes moist - Expanded ENT Exam External ear exam: Present: normal external inspection Mouth exam: Present: normal external inspection Teeth exam: Present: normal inspection Throat exam: Present: normal inspection - Neck Neck exam: Present: normal inspection, full ROM, trachea midline - Chest Chest inspection: Present: normal inspection, symmetric chest wall rise - Respiratory Respiratory exam: Present: normal lung sounds bilaterally - Cardiovascular Cardiovascular exam: Present: regular rate, normal rhythm, normal heart sounds - Abdominal Exam Abdominal exam: Present: soft, Non-Tender. Absent: tenderness, distention, guarding, rebound, rigidity - Extremities Exam Extremities exam: Present: normal inspection, full ROM. Absent: tenderness, pedal edema - Expanded Upper Extremity Exam Shoulder exam: Present: normal inspection, full ROM Arm exam: Present: normal inspection, full ROM Elbow exam: Present: normal inspection, full ROM Forearm/Wrist exam: Present: normal inspection, full ROM Hand exam: Present: normal inspection, full ROM Vascular exam: Normal: capillary refill, radial pulse - Expanded Lower Extremity Exam Hip/Pelvis exam: Present: normal inspection, full ROM Upper leg exam: Present: normal inspection, full ROM Knee exam: Present: normal inspection, full ROM Lower leg exam: Present: normal inspection, full ROM Ankle exam: Present: normal inspection, full ROM Foot/toe exam: Present: normal inspection, full ROM Neurovascular/Tendon exam: Absent: motor deficit, sensory deficit, tendon deficit - Back Exam Back exam: Present: normal inspection, full ROM. Absent: tenderness - Neurological Exam Neurological exam: Present: alert, oriented X3 - Expanded Neurological Exam Patient oriented to: Present: person, place, time Coma Scale Eye Opening: Spontaneous Coma Scale Motor Response: Obeys Commands Coma Scale Verbal Response: Oriented Coma Scale Total: 15 - Psychiatric Psychiatric exam: Present: normal affect, normal mood - Skin Skin exam: Present: warm, dry, intact, normal color Course Vital Signs Temperature 98.5 F 04/13/16 13:30 Pulse Rate 80 04/13/16 13:30 Respiratory Rate 22 04/13/16 13:30 Blood Pressure 131/72 04/13/16 13:30 O2 Sat by Pulse Oximetry 93 L 04/13/16 13:30 Temperature 98.5 F 04/13/16 13:30 Pulse Rate 80 04/13/16 13:30 Respiratory Rate 22 04/13/16 13:30 Blood Pressure 105/32 04/13/16 14:20 O2 Sat by Pulse Oximetry 93 L 04/13/16 13:30 Nausea/Vomiting/Diarrhea - Differential Diagnosis Likely: food poisoning, gastroenteritis, drug-induced nausea and vomitting, dehydration, bowel obstruction - Medical Records Medical records reviewed: Yes I reviewed the patient's medical records. - Lab Data Lab results reviewed: Yes I reviewed the patient's lab results. Result diagrams: 04/13/16 14:11 04/13/16 14:11 Lab Results 04/13/16 04/13/16 04/13/16 Range/Units 14:11 14:11 14:11 WBC (4.3-11.1) K/mcL RBC (3.82-4.97) M/mcL Hgb (11.5-15.4) g/dL Hct (35.3-44.9) % MCV (83.0-100.0) fL MCH (28.0-33.3) pg MCHC (31.6-35.5) g/dL RDW (11.5-14.5) % Plt Count (140-400) K/mcL MPV (9.4-12.4) fL Immature Gran % (0-4) % Seg Neutrophils % % Lymphocytes % % Monocytes % % Eosinophils % % Basophils % % Neutrophils # (1.6-8.9) K/mcL Lymphocytes # (0.6-4.6) K/mcL Monocytes # (0.0-1.3) K/mcL Eosinophils # (0.0-0.6) K/mcL Basophils # (0.0-0.2) K/mcL Platelet Estimate (Normal) Hypochromasia (Not Present) Macrocytosis (Not Present) Ovalocytes (Not Present) PT 11.4 (9.4-12.1) Seconds INR 1.1 APTT 29.9 (26.0-36.0) Seconds Sodium (136-145) mEq/L Potassium (3.5-4.5) mEq/L Chloride (98-109) mEq/L Carbon Dioxide (19-29) mEq/L BUN (7-20) mg/dL Creatinine (0.57-1.11) mg/dL Est GFR ( Amer) (> 60) Est GFR (Non-Af Amer) (> 60) BUN/Creatinine Ratio (6-26) Glucose (70-99) mg/dL Calculated Osmolality (280-300) Calcium (8.6-10.8) mg/dL Total Bilirubin 0.3 (0.2-1.2) mg/dL Direct Bilirubin 0.1 (0.0-0.5) mg/dL Indirect Bilirubin 0.2 (0.0-1.2) mg/dL AST 20 (5-34) Units/L ALT 7 (0-55) Units/L Alkaline Phosphatase 112 (38-126) Units/L Troponin I (0-0.03) ng/mL B-Natriuretic Peptide 486 H (0-100) pg/mL Serum Total Protein 6.9 (6.0-8.3) g/dL Albumin 3.2 L (3.5-5.0) g/dL Globulin 3.7 H (2.4-3.5) g/dL Albumin/Globulin Ratio 0.9 L (1.1-2.2) Lipase 30 (8-78) Units/L 04/13/16 04/13/16 04/13/16 Range/Units 14:11 14:11 14:11 WBC 3.7 L (4.3-11.1) K/mcL RBC 3.89 (3.82-4.97) M/mcL Hgb 10.0 L (11.5-15.4) g/dL Hct 35.2 L (35.3-44.9) % MCV 90.5 (83.0-100.0) fL MCH 25.7 L (28.0-33.3) pg MCHC 28.4 L (31.6-35.5) g/dL RDW 16.0 H (11.5-14.5) % Plt Count 154 (140-400) K/mcL MPV 11.4 (9.4-12.4) fL Immature Gran % 1.1 (0-4) % Seg Neutrophils % 73.4 % Lymphocytes % 11.6 % Monocytes % 11.0 % Eosinophils % 2.4 % Basophils % 0.5 % Neutrophils # 2.7 (1.6-8.9) K/mcL Lymphocytes # 0.4 L (0.6-4.6) K/mcL Monocytes # 0.4 (0.0-1.3) K/mcL Eosinophils # 0.1 (0.0-0.6) K/mcL Basophils # 0.0 (0.0-0.2) K/mcL Platelet Estimate Slight Decrease L (Normal) Hypochromasia Present A (Not Present) Macrocytosis Present A (Not Present) Ovalocytes 1+ A (Not Present) PT (9.4-12.1) Seconds INR APTT (26.0-36.0) Seconds Sodium 139 (136-145) mEq/L Potassium 6.4 H (3.5-4.5) mEq/L Chloride 105 (98-109) mEq/L Carbon Dioxide 23 (19-29) mEq/L BUN 37 H (7-20) mg/dL Creatinine 2.41 H (0.57-1.11) mg/dL Est GFR ( Amer) 24 L (> 60) Est GFR (Non-Af Amer) 20 L (> 60) BUN/Creatinine Ratio 15 (6-26) Glucose 79 (70-99) mg/dL Calculated Osmolality 296 (280-300) Calcium 9.2 (8.6-10.8) mg/dL Total Bilirubin (0.2-1.2) mg/dL Direct Bilirubin (0.0-0.5) mg/dL Indirect Bilirubin (0.0-1.2) mg/dL AST (5-34) Units/L ALT (0-55) Units/L Alkaline Phosphatase (38-126) Units/L Troponin I 0.07 H* (0-0.03) ng/mL B-Natriuretic Peptide (0-100) pg/mL Serum Total Protein (6.0-8.3) g/dL Albumin (3.5-5.0) g/dL Globulin (2.4-3.5) g/dL Albumin/Globulin Ratio (1.1-2.2) Lipase (8-78) Units/L - Radiology Data Radiology results reviewed: Yes I reviewed the patient's radiology results. - EKG Data EKG attestation: Yes I reviewed and interpreted this EKG. EKG shows normal: sinus rhythm Rate: normal Interpretation: no acute changes Critical Care Time Critical Care Time: Yes Total Critical Care Time: 40 Attestation: Critical care performed: Time is exclusive of separately billable procedures. Time includes: direct patient care, patient reassessment, coordination of patient care, interpretation of data (laboratory data, radiology data, and respiratory data), review of patient's medical records, medical consultation and documentation of patient care. Procedures included in critical care time: Procedures excluded from critical care time:
[2016-04-13] MEDS ORDERED: Acetaminophen 325 MG TABLET PO PRN (16:17)
[2016-04-13] MEDS ORDERED: Ondansetron 4 MG/2 ML VIAL IVP PRN (16:17)
[2016-04-13] MEDS ORDERED: Ipratropium/Albuterol Neb 3 ML IH STA (16:28)
--- NOTE | 2016-04-13 17:27 | Internal Med History&Physical ---
Date of Encounter: 04/13/16 Time of Encounter: 16:20 Assessment and Plan (1) Vomiting Current visit: Yes Status: Acute Nausea, vomiting and diarrhea for the past 3 days. Improved. She ate her food tray in the ED. Qualifiers: Vomiting type: unspecified Vomiting Intractability: non-intractable Nausea presence: with nausea Qualified Code(s): R11.2 - Nausea with vomiting, unspecified (2) Hyperkalemia Current visit: Yes Status: Acute severe hyperkalemia due to KATHARINA from dehydration, bactrim, and lisinopril. In ED, K was 6.4. received 1L NS, duoneb, insulin/dextrose and kayexalate. EKG showed SR HR 84, MD changes. repeat K stat. IV 1gm Calcium gluconate. IV fluids 0.45% at 75 ml/hr. (3) Acute worsening of stage 3 chronic kidney disease Current visit: Yes Status: Acute secondary to KATHARINA from Gi losses (vomiting), bactrim, and lisinopril use. IV fluids. close monitoring of kidney function. Avoid nephrotoxins. hold bactrim, lisinopril. (4) Elevated troponin I level Current visit: Yes Status: Acute elevated due to KATHARINA. cardiac monitoring. (5) Diabetes mellitus Current visit: Yes Status: Acute hold metformin. insulin sliding scale. diabetic diet. Qualifiers: Diabetes mellitus type: type 2 Diabetes mellitus complication status: without complication Diabetes mellitus fpc insulin use: without fpc use Qualified Code(s): E11.9 - Type 2 diabetes mellitus without complications (6) Hypertension Current visit: No Status: Chronic BP is adequate. hold home dose of lisinopril, and nifedipine. Qualifiers: Hypertension type: essential hypertension Qualified Code(s): I10 - Essential (primary) hypertension (7) Chronic respiratory failure Current visit: Yes Status: Acute secondary to OHS. Pt uses oxygen as needed. CXR showed low lung volumes O2 supplement. Qualifiers: Respiratory failure complication: hypoxia Qualified Code(s): J96.11 - Chronic respiratory failure with hypoxia (8) History of heart failure Current visit: Yes Status: Chronic history of HF. 02/27/16: echocardiogram showed LVEF 60%, mild LVH. Internal Medicine - H&P: HPI Chief complaint: generalized weakness for 3 days Admitted From: Home (usp) Plans for Post Hospital Care: Home History of present illness: Ms. Madera is a 70 year old female with past medical history of CKD stage III, diabetes, hyperlipidemia, hypertension and morbid obesity who was was recently hospitalized on February 27 and treated for sepsis, MRSE bacteremia, MRSA left leg wound cellulitis and BERTHA/OHS. She completed 2 weeks of IV Vancomycin at [facility] and returned to her [facility] at the end of February. On April 03, a wound culture of her chest grew MRSA and she was started on Bactrim. Two days ago, she developed nausea, vomiting, diarrhea and generalized weakness. No shortness of breath, no chest pain, no palpitations, no urinary complaints, no abdominal pain, no bleeding, no Le edema. This morning, she had a bmp that showed elevated potassium level. She was sent to our ED for further evaluation. In ED, K was 6.4. She received 1L NS, duoneb, insulin/dextrose and kayexalate. Past Med Surg Social Fam HX - Past Medical History Medical history: diabetes, hyperlipidemia, hypertension, osteoporosis, other Psychiatric history: anxiety, depression - Past Surgical History Surgical History: cholecystectomy - Social History Smoking Status: Never smoker Smokeless Tobacco Status: No Alcohol use: none Drug use: none - Family History Brother Hx Family Cardiac Disorders: Yes (CAD) Internal Medicine - H&P: Meds RisperiDONE [RisperDAL] 1 mg PO HS #30 tablet 12/31/14 [Rx] Allopurinol [Zyloprim] 100 mg PO DAILY 02/24/16 [History] Escitalopram [Lexapro] 5 mg PO DAILY 02/24/16 [History] Escitalopram [Lexapro] 10 mg PO DAILY 02/24/16 [History] Gemfibrozil [Lopid] 600 mg PO BIDWM 02/24/16 [History] Levothyroxine [Synthroid] 100 mcg PO DAILY 02/24/16 [History] Lisinopril 2.5 mg PO DAILY 02/24/16 [History] Metformin HCl [Glucophage] 1,000 mg PO BID 02/24/16 [History] NIFEdipine [Afeditab Cr] 30 mg PO DAILY 02/24/16 [History] Nystatin POWDER [Nystop] 1 appl TP BID 02/24/16 [History] Rosuvastatin Calcium [Crestor] 5 mg PO DAILY 02/24/16 [History] Meclizine [Antivert] 25 mg PO TID PRN #30 tablet 04/11/16 [Rx] Sulfamethoxazole/Trimeth DS [Bactrim DS] 1 each PO BID 04/13/16 [History] Allergies sulfamethoxazole [From Bactrim] Allergy (Verified 12/26/14 03:50) Rash trimethoprim [From Bactrim] Allergy (Verified 12/26/14 03:50) Rash All Systems PM: A 10-system review of systems was performed and is negative for pertinent findings except as documented above in the HPI. - Constitutional Vitals: Temp Pulse Resp BP Pulse Ox 98.5 F 80 18 102/71 93 L 04/13/16 16:17 04/13/16 13:30 04/13/16 16:17 04/13/16 16:17 04/13/16 13:30 General appearance: Present: cooperative ( ), A&O X 3, morbidly obese, pleasant , no acute distress, answers questions appropriately - Eye Eye exam: Present: PERRL, sclera anicteric - ENT ENT exam: Present: mucous membranes moist - Neck Neck exam general surgery: Present: supple, trachea midline. Absent: lymphadenopathy - Respiratory Respiratory exam: Present: CTAB - Cardiovascular Cardiovascular exam: Present: RRR - GI/Abdominal GI/Abdominal exam: Present: normal bowel sounds, soft. Absent: distended, tenderness - Extremities Exam Extremities exam: Absent: pedal edema - Back Exam Back exam: Absent: CVA tenderness (L) (left leg healing ulcer, no discharge.), CVA tenderness (R) - Neurological Exam Neurological exam: Present: alert, oriented X3. Absent: facial droop, speech deficit Internal Med - H&P Results - Labs CBC & Chem 7: 04/13/16 14:11 04/13/16 14:11
[2016-04-13] MEDS ORDERED: Calcium Gluconate 1,000 MG in D5% in Water 100 ML IVPB STA (17:57)
[2016-04-13] MEDS ORDERED: D5% in Water 1,000 ML IV PRN (18:03)
[2016-04-13] MEDS ORDERED: *HR* Dextrose 50 % in Water (Syg) 50 ML SYRINGE IVP PRN (18:03)
[2016-04-13] MEDS ORDERED: Dextrose Gel 15 GM PO PRN ×2 (18:03)
[2016-04-13] MEDS: Insulin LISPRO 300 UNITS/3 ML VIAL SQ SCH ×2 (18:10→20:53)
[2016-04-13] MEDS: *HR* Heparin 5,000 UNIT/ML VIAL SQ SCH (18:26)
[2016-04-13] MEDS: Nystatin POWDER 30 GM BOTTLE TP SCH ×2 (18:47→20:53)
[2016-04-14 06:20] LABS: Basophils % 0.6 %; Hemoglobin 9.7 g/dL (11.5-15.4); Mean Platelet Volume 11.8 fL (9.4-12.4); Segmented Neutrophils % 68.4 %
[2016-04-14 06:22] LABS: Eosinophils # 0.2 K/mcL (0.0-0.6); Eosinophils % 4.8 %; Hematocrit 33.8 % (35.3-44.9); Immature Granulocytes % 0.6 % (0-4); Lymphocytes # 0.4 K/mcL (0.6-4.6); Lymphocytes % 12.1 %; Mean Corpuscular HGB Conc 28.7 g/dL (31.6-35.5); Mean Corpuscular Hemoglobin 26.4 pg (28.0-33.3); Mean Corpuscular Volume 92.1 fL (83.0-100.0); Monocytes # 0.5 K/mcL (0.0-1.3); Monocytes % 13.5 %; Nucleated Red Blood Cells 0.6 /100 WBC (0); Platelet Count 130 K/mcL (140-400); Red Blood Count 3.67 M/mcL (3.82-4.97)
[2016-04-14 06:35] LABS: Calcium 8.6 mg/dL (8.6-10.8); Magnesium 2.4 mg/dL (1.6-2.6); Phosphorous 5.1 mg/dL (2.3-4.7); Potassium 5.6 mEq/L (3.5-4.5); Uric Acid 6.2 mg/dL (2.6-6.0)
[2016-04-14 06:47] LABS: Neutrophils # 2.5 K/mcL (1.6-8.9)
[2016-04-14] MEDS ORDERED: Ipratropium/Albuterol Neb 3 ML IH STA (07:46)
[2016-04-14] MEDS: *HR* Heparin 5,000 UNIT/ML VIAL SQ SCH ×2 (08:38→22:23)
[2016-04-14] MEDS: Insulin LISPRO 300 UNITS/3 ML VIAL SQ SCH ×4 (08:39→22:22)
[2016-04-14] MEDS: Nystatin POWDER 30 GM BOTTLE TP SCH ×3 (08:52→22:24)
--- NOTE | 2016-04-14 12:01 | Internal Med Progress Note ---
Date of Encounter: 04/14/16 Time of Encounter: 11:50 - Assessment and plan (1) Vomiting Current Visit: Yes Status: Acute Assessment and plan: Nausea, vomiting and diarrhea for 3 days before admission. Resolved. Qualifiers: Vomiting type: unspecified Vomiting Intractability: non-intractable Nausea presence: with nausea Qualified Code(s): R11.2 - Nausea with vomiting, unspecified (2) Hyperkalemia Current Visit: Yes Status: Acute Assessment and plan: severe hyperkalemia due to KATHARINA from dehydration, bactrim, and lisinopril. In ED, K was 6.4. received 1L NS, duoneb, insulin/dextrose and kayexalate. EKG showed SR HR 84, MT changes. Potassium is 5.6 these morning. Kayexalate 15 g 1. continue IV fluids 0.45% at 75 ml/hr. repeat BMP in the afternoon. (3) Acute worsening of stage 3 chronic kidney disease Current Visit: Yes Status: Acute Assessment and plan: secondary to KATHARINA from Gi losses (vomiting), bactrim, and lisinopril use. Kidney function is recovering. Continue IV fluids. close monitoring of kidney function. Avoid nephrotoxins. hold bactrim, lisinopril. (4) Elevated troponin I level Current Visit: Yes Status: Acute Assessment and plan: elevated due to KATHARINA. cardiac monitoring. (5) Diabetes mellitus Current Visit: Yes Status: Acute Assessment and plan: hold metformin. insulin sliding scale. diabetic diet. 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 hold home dose of lisinopril, and nifedipine. Qualifiers: Hypertension type: essential hypertension Qualified Code(s): I10 - Essential (primary) hypertension (7) Chronic respiratory failure Current Visit: Yes Status: Acute Assessment and plan: secondary to OHS. Pt uses oxygen as needed. CXR showed low lung volumes 4L O2 supplement. Qualifiers: Respiratory failure complication: hypoxia Qualified Code(s): J96.11 - Chronic respiratory failure with hypoxia (8) History of heart failure Current Visit: Yes Status: Chronic Assessment and plan: history of HF. 02/27/16: echocardiogram showed LVEF 60%, mild LVH. - Subjective Interval history: patient has no complaints. no events overnight. she is eating well. - Constitutional Vitals: Temp Pulse Resp BP Pulse Ox 98.2 F 82 16 135/80 97 04/14/16 11:50 04/14/16 11:50 04/14/16 11:50 04/14/16 11:50 04/14/16 11:50 General appearance: Present: cooperative ( ), A&O X 3, morbidly obese, pleasant , no acute distress, answers questions appropriately - Eye Eye exam: Present: PERRL, sclera anicteric - Neck Neck exam general surgery: Present: lymphadenopathy. Absent: supple, trachea midline - Respiratory Respiratory exam: Present: CTAB - Cardiovascular Cardiovascular exam: Present: RRR - GI/Abdominal GI/Abdominal exam: Present: normal bowel sounds, soft. Absent: distended, tenderness - Extremities Exam Additional comments: legt leg: healing ulcer, no signs of infection. - Back Exam Back exam: Absent: CVA tenderness (L), CVA tenderness (R) - Neurological Exam Neurological exam: Present: alert, oriented X3, no focal deficits, strengths equal and symetr throughout - Skin Skin exam: Present: dry. Absent: rash Internal Medicine: Result - Labs CBC & Chem 7: 04/14/16 05:57 04/14/16 14:42 Labs: Short CBC 04/14/16 Range/Units 05:57 WBC 3.6 L (4.3-11.1) K/mcL Hgb 9.7 L (11.5-15.4) g/dL Hct 33.8 L (35.3-44.9) % Plt Count 130 L (140-400) K/mcL Neutrophils # 2.5 (1.6-8.9) K/mcL BMP 04/13/16 04/14/16 17:43 05:57 Sodium 141 Potassium 5.6 H 5.6 H Chloride 107 Carbon Dioxide 24 BUN 34 H Creatinine 2.23 H Glucose 88 Calcium 8.6 - ABG Interpretation ABG results: PT/INR, D-dimer PT 11.4 Seconds (9.4-12.1) 04/13/16 14:11 Consult Discharge Plan - Plan Referrals: NO,PCP [Primary Care Provider] -
[2016-04-14 15:27] LABS: Calcium 8.5 mg/dL (8.6-10.8); Potassium 5.2 mEq/L (3.5-4.5)
--- NOTE | 2016-04-14 18:16 | Electrocardiograph Report ---
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
[2016-04-15] MEDS: *HR* Heparin 5,000 UNIT/ML VIAL SQ SCH (06:16)
[2016-04-15 06:29] LABS: Nucleated Red Blood Cells 0.6 /100 WBC (0)
[2016-04-15 06:31] LABS: Basophils % 1.1 %; Eosinophils # 0.2 K/mcL (0.0-0.6); Hematocrit 32.4 % (35.3-44.9); Hemoglobin 9.4 g/dL (11.5-15.4); Immature Granulocytes % 0.8 % (0-4); Lymphocytes # 0.4 K/mcL (0.6-4.6); Mean Corpuscular Hemoglobin 26.6 pg (28.0-33.3); Mean Corpuscular Volume 91.8 fL (83.0-100.0); Mean Platelet Volume 11.1 fL (9.4-12.4); Monocytes # 0.5 K/mcL (0.0-1.3); Monocytes % 14.8 %; Neutrophils # 2.4 K/mcL (1.6-8.9); Platelet Count 124 K/mcL (140-400); Red Blood Count 3.53 M/mcL (3.82-4.97); Segmented Neutrophils % 66.3 %
[2016-04-15 06:41] LABS: Calcium 8.5 mg/dL (8.6-10.8); Potassium 4.7 mEq/L (3.5-4.5)
[2016-04-15 07:15] LABS: Platelet Estimate Slight Decrease (Normal)
[2016-04-15 07:18] LABS: Basophilic Stippling 1+ (Not Present); Polychromasia 2+ (Not Present)
[2016-04-15 07:19] LABS: Macrocytosis Present (Not Present)
[2016-04-15 07:27] VITALS: BP 148/82
[2016-04-15] MEDS: Insulin LISPRO 300 UNITS/3 ML VIAL SQ SCH (08:20)
[2016-04-15] MEDS: Nystatin POWDER 30 GM BOTTLE TP SCH (08:21)
--- NOTE | 2016-04-15 08:30 | Discharge Summary ---
Date of Encounter: 04/15/16 Time of Encounter: 08:00 - Discharge Diagnosis (1) Vomiting Priority: Primary Status: Acute Qualifiers: Vomiting type: unspecified Vomiting Intractability: non-intractable Nausea presence: with nausea Qualified Code(s): R11.2 - Nausea with vomiting, unspecified (2) Hyperkalemia Priority: Primary Status: Acute (3) Acute worsening of stage 3 chronic kidney disease Priority: Primary Status: Acute (4) Elevated troponin I level Priority: Primary Status: Acute (5) Diabetes mellitus Priority: Secondary Status: Chronic Qualifiers: Diabetes mellitus type: type 2 Diabetes mellitus complication status: without complication Diabetes mellitus senior care insulin use: without manager intermediate use Qualified Code(s): E11.9 - Type 2 diabetes mellitus without complications (6) Hypertension Priority: Secondary Status: Chronic Qualifiers: Hypertension type: essential hypertension Qualified Code(s): I10 - Essential (primary) hypertension (7) Chronic respiratory failure Priority: Secondary Status: Chronic Qualifiers: Respiratory failure complication: hypoxia Qualified Code(s): J96.11 - Chronic respiratory failure with hypoxia (8) History of heart failure Priority: Secondary Status: Chronic - Discharge Medications Home Medications: RisperiDONE [RisperDAL] 1 mg PO HS #30 tablet 12/31/14 [Rx] Allopurinol [Zyloprim] 100 mg PO DAILY 02/24/16 [History] Escitalopram [Lexapro] 5 mg PO DAILY 02/24/16 [History] Escitalopram [Lexapro] 10 mg PO DAILY 02/24/16 [History] Gemfibrozil [Lopid] 600 mg PO BIDWM 02/24/16 [History] Levothyroxine [Synthroid] 100 mcg PO DAILY 02/24/16 [History] Nystatin POWDER [Nystop] 1 appl TP BID 02/24/16 [History] Rosuvastatin Calcium [Crestor] 5 mg PO DAILY 02/24/16 [History] Meclizine [Antivert] 25 mg PO TID PRN #30 tablet 04/11/16 [Rx] Allergies/Adverse Reactions: Allergies sulfamethoxazole [From Bactrim] Allergy (Verified 12/26/14 03:50) Rash trimethoprim [From Bactrim] Allergy (Verified 12/26/14 03:50) Rash Date of admission: 04/13/16 16:17 Primary care physician: PCP NO - Patient Status Disposition: Home Health Service Condition: Good Functional capacity at discharge: bed bound Overall status at discharge: patient is progressing back to baseline - Discharge Instructions Instructions: Dehydration (GEN), Diabetes Mellitus Type 2 in Adults (DC), Chronic Hypertension (DC) Follow Up With: NO,PCP [Primary Care Provider] - (f/u in 1 week) Additional Instructions: Follow a strict diabetic diet. Patient needs a sleep study as outpatient. 4L oxygen NC all times blood test to be done on 04/18/16 - Diet and Activity Activity: resume usual activities as tolerated Diet: low fat, low cholesterol, low salt diet, other (low potassium. fluid restriction 1.8 L/day) Interval History: patient is asleep but wakes up and is about to eat her breakfast. Hospital course: Ms. Madera is a 70 year old female with past medical history of CKD stage III, diabetes, diastolic heart failure, hypertension, chronic respiratory failure due to OHS, (oxygen dependant) and morbid obesity who was was recently hospitalized on February 27 and treated for sepsis, MRSE bacteremia, MRSA left leg wound cellulitis and BERTHA/OHS. She completed 2 weeks of IV Vancomycin at [facility] and returned to her [facility] at the end of February. On April 03, a wound culture of her chest grew MRSA and she was started on Bactrim. Two days before presentation, she developed nausea, vomiting, diarrhea and generalized weakness. She was sent to our ED due to elevated K. Her initial K was 6.4. BUN and creatinine were also elevated. She was admitted for acute kidney injury and hyperkalemia due to GI losses, dehydration, Bactrim and lisinopril use. She received IV fluid hydration with resolution of her hyperkalemia and improvement of her kidney function. Her troponin was mildly elevated secondary to acute kidney injury. EKG showed no acute ischemic changes. Her lisinopril was held and her blood pressure remained adequate. Her metformin was held due to acute kidney injury and patient's blood sugar were adequate during this hospitalization. PLAN: repeat BMP in 3 days. sleep study as outpatient. - Time Spent with Patient Total time spent providing and/or coordinating discharge services: - Constitutional Vitals: Temp Pulse Resp BP Pulse Ox 98.8 F 77 18 148/82 98 04/15/16 07:17 04/15/16 07:17 04/15/16 07:17 04/15/16 07:17 04/15/16 07:17 General appearance: Present: cooperative ( ), A&O X 3, morbidly obese, pleasant , no acute distress, answers questions appropriately - Eye Eye exam: Present: PERRL, sclera anicteric - Neck Neck exam general surgery: Present: supple, trachea midline. Absent: lymphadenopathy - Respiratory Respiratory exam: Present: CTAB - Cardiovascular Cardiovascular exam: Present: RRR - GI/Abdominal GI/Abdominal exam: Present: distended, normal bowel sounds, soft. Absent: tenderness - Extremities Exam Extremities exam: Absent: pedal edema - Back Exam Back exam: Absent: CVA tenderness (L), CVA tenderness (R) - Neurological Exam Neurological exam: Present: alert, oriented X3. Absent: facial droop, speech deficit - Skin Skin exam: Present: dry (right chest: healed scar from removal of mediport. no signs of infection or discharge.), rash (cutaneous candidiasis below breasts)
--- NOTE | 2016-04-15 08:42 | Physician Discharge Referral ---
Home Health/Hosp Referral Info Transfer to: Home Health Attending Provider: meaghan Provider in Charge Post Discharge: PCP - Diagnosis (1) Vomiting Status: Acute (2) Hyperkalemia Status: Acute (3) Acute worsening of stage 3 chronic kidney disease Status: Acute (4) Elevated troponin I level Status: Acute (5) Diabetes mellitus Status: Chronic (6) Hypertension Status: Chronic (7) Chronic respiratory failure Status: Chronic (8) History of heart failure Status: Chronic - Respiratory Orders Oxygen / L per min (4) Smoking Cessation: Smoking cessation has been advised. For more information, call the [place] Tobacco Quit Line at 0-717-PUVX-NOW. - Diet/Nutrition Diet/Nutrition Orders: No Added Salt (DESI), Cardiac (low potassium. fluid restriction 1.8 L/day) - Activity Activity Orders: Walker - Services Needed Following services are medically necessary services: Nursing, Home Health Aide, Physical Therapy, Occupational Therapy - Transfer Medications Home Medications: RisperiDONE [RisperDAL] 1 mg PO HS #30 tablet 12/31/14 [Rx] Allopurinol [Zyloprim] 100 mg PO DAILY 02/24/16 [History] Escitalopram [Lexapro] 5 mg PO DAILY 02/24/16 [History] Escitalopram [Lexapro] 10 mg PO DAILY 02/24/16 [History] Gemfibrozil [Lopid] 600 mg PO BIDWM 02/24/16 [History] Levothyroxine [Synthroid] 100 mcg PO DAILY 02/24/16 [History] Nystatin POWDER [Nystop] 1 appl TP BID 02/24/16 [History] Rosuvastatin Calcium [Crestor] 5 mg PO DAILY 02/24/16 [History] Meclizine [Antivert] 25 mg PO TID PRN #30 tablet 04/11/16 [Rx] Allergies/Adverse Reactions: Allergies sulfamethoxazole [From Bactrim] Allergy (Verified 12/26/14 03:50) Rash trimethoprim [From Bactrim] Allergy (Verified 12/26/14 03:50) Rash Certification: Further, I certify that my clinical findings support that this patient is homebound (i.e. absences from home require considerable and taxing effort and are for medical reasons or mu-ism services or infrequently or short duration when for other reasons) because: Homebound Reason: Patient requires assistance of a person or device to safely leave home, Leaving home requires considerable and taxing effort due to condition Attestation: My signature below is to certify that this patient is under my care and that I, or nurse practitioner, or a physician's portfolio assistant working with me, has a face-to -face encounter with this patient.
== END 2016-04-15 09:51 | disposition home health service (06) | DRG 683 ==
LOC: 2ANU 13:29 → EMEROO 13:29 → SUATTDRO 16:17 → 2ANU 17:05
PROVIDERS: ADMIT Internal Medicine; ATTEND Internal Medicine

== ENCOUNTER 2016-04-15 15:26 | Inpatient (IN) ==
--- NOTE | 2016-04-15 15:50 | Emergency Department Note ---
Disposition Clinical Impression: Pneumonia Disposition: Admitted As Inpatient Condition: Good General Adult HPI - General Chief complaint: ED Weakness Stated complaint: Flu like symptoms Source: patient, EMS Limitations: altered mental status Nursing Notes Reviewed: Yes Vital Signs Reviewed: Yes - History of Present Illness Pain Scale: 0 - Related Data Home Medications Medication Instructions Recorded Confirmed Allopurinol [Zyloprim] 100 mg PO DAILY 02/24/16 04/15/16 Escitalopram [Lexapro] 5 mg PO DAILY 02/24/16 04/15/16 Escitalopram [Lexapro] 10 mg PO DAILY 02/24/16 04/15/16 Gemfibrozil [Lopid] 600 mg PO BIDWM 02/24/16 04/15/16 Levothyroxine [Synthroid] 100 mcg PO DAILY 02/24/16 04/15/16 Nystatin POWDER [Nystop] 1 appl TP BID 02/24/16 04/15/16 Rosuvastatin Calcium [Crestor] 5 mg PO DAILY 02/24/16 04/15/16 NIFEdipine [Nifedipine ER] 30 mg PO DAILY 04/15/16 04/15/16 Previous Rx's Medication Instructions Recorded RisperiDONE [RisperDAL] 1 mg PO HS #30 tablet 12/31/14 Meclizine [Antivert] 25 mg PO TID PRN #30 tablet 04/11/16 Allergies Allergy/AdvReac Type Severity Reaction Status Date / Time sulfamethoxazole Allergy Rash Verified 12/26/14 03:50 [From Bactrim] trimethoprim [From Bactrim] Allergy Rash Verified 12/26/14 03:50 Past Medical History - Past Medical History Medical history: Reports: diabetes, hyperlipidemia, hypertension, osteoporosis, other Surgical history: Reports: cholecystectomy Psychiatric history: Reports: anxiety, depression PEARLER history: Reports: no PEARLER history - Social History Smoking Status: Never smoker Smokeless Tobacco Status: No Alcohol use: Reports: none Drug use: Reports: none Physical Exam - General Limitations: altered mental status General appearance: in distress Course Vital Signs Temperature 98.9 F 04/15/16 15:28 Pulse Rate 85 04/15/16 15:28 Respiratory Rate 18 04/15/16 15:28 Blood Pressure 141/72 04/15/16 15:28 O2 Sat by Pulse Oximetry 96 04/15/16 15:28 Temperature 98.4 F 04/15/16 19:29 Pulse Rate 82 04/15/16 19:29 Respiratory Rate 20 04/15/16 19:29 Blood Pressure 125/79 04/15/16 19:29 O2 Sat by Pulse Oximetry 93 L 04/15/16 19:29 Oxygen Delivery Oxygen Delivery Room Air Medical Decision Making - MDM Narrative Medical decision making narrative: I examined this patient and my medical decision-making was reviewed with the VESSEL SLAGMAN/PA/Advanced Practice Nurse/Resident Physician. I agree with the documented findings, disposition and treatment plan as described except to the extent set forth below. Evaluated this patient on arrival with Dr. Vital in EMS. Patient was just discharged from the hospital this morning uncertain reason. We pulled her discharge summary she had chronic kidney disease and diabetes and failure to thrive. back to the residential today and they sent her here since she is not acting herself. Patient has no complaints this time. patient services manager said they tried to get her into skilled nursing patient refuses that she has been a residential for 10 years. She still makes all her own decisions. She denies any other problems at this time. We will order a check urinalysis , we reviewed her labs which are just done this morning and her discharge summary which is just done this morning by the hospitalist service and then will speak to the hospitalist service and also her residential this evening gains more information. 1650 hrs.: Spoke with her residential and only look to the discharge instruction she was supposed to go home on 4 L of oxygen but no one prescription her supply that to her. When she is on oxygen here she feels much better; her urine is negative. Head CT 04/15/16 16:17 IMPRESSION: 1. No acute intracranial abnormality. 2. Bilateral globe proptosis. Correlate with signs of a thyroid ophthalmopathy. 3. Stable chronic microvascular white matter ischemic disease. D/ / David Roger MD / David Roger MD Interpreting Provider: David Roger MD Chest X-Ray 04/15/16 16:38 IMPRESSION: 1. Low lung volumes with chronic elevation of the right hemidiaphragm. 2. Increased ill-defined bilateral perihilar opacities concerning for multifocal pneumonia. D/ / Babak Fonseca MD / Babak Fonseca MD Interpreting Provider: Babak Fonseca MD - Lab Data Result diagrams: 04/15/16 18:22 04/15/16 18:22 Lab Results 04/15/16 04/15/16 04/15/16 Range/Units 16:07 18:22 18:22 WBC 3.1 L (4.3-11.1) K/mcL RBC 3.73 L (3.82-4.97) M/mcL Hgb 9.7 L (11.5-15.4) g/dL Hct 33.7 L (35.3-44.9) % MCV 90.3 (83.0-100.0) fL MCH 26.0 L (28.0-33.3) pg MCHC 28.8 L (31.6-35.5) g/dL RDW 15.9 H (11.5-14.5) % Plt Count 138 L (140-400) K/mcL MPV 11.1 (9.4-12.4) fL Immature Gran % 1.0 (0-4) % Seg Neutrophils % 69.9 % Lymphocytes % 10.7 % Monocytes % 12.6 % Eosinophils % 5.2 % Basophils % 0.6 % Neutrophils # 2.2 (1.6-8.9) K/mcL Lymphocytes # 0.3 L (0.6-4.6) K/mcL Monocytes # 0.4 (0.0-1.3) K/mcL Eosinophils # 0.2 (0.0-0.6) K/mcL Basophils # 0.0 (0.0-0.2) K/mcL Hypochromasia Present A (Not Present) Sodium (136-145) mEq/L Potassium (3.5-4.5) mEq/L Chloride (98-109) mEq/L Carbon Dioxide (19-29) mEq/L BUN (7-20) mg/dL Creatinine (0.57-1.11) mg/dL Est GFR ( Amer) (> 60) Est GFR (Non-Af Amer) (> 60) BUN/Creatinine Ratio (6-26) Glucose (70-99) mg/dL Calculated Osmolality (280-300) Calcium (8.6-10.8) mg/dL Total Bilirubin (0.2-1.2) mg/dL AST (5-34) Units/L ALT (0-55) Units/L Alkaline Phosphatase (38-126) Units/L Serum Total Protein (6.0-8.3) g/dL Albumin (3.5-5.0) g/dL Globulin (2.4-3.5) g/dL Albumin/Globulin Ratio (1.1-2.2) TSH 1.313 (0.350-4.840) mcIU/mL Urine Color Yellow (Yellow) Urine Clarity Clear (Clear) Urine pH 6.0 (5.0-8.0) pH Units Ur Specific [place] 1.022 (1.010-1.025) Urine Protein 30 H (Neg-Trace) mg/dL Urine Glucose (UA) Normal (Normal) mg/dL Urine Ketones Negative (Negative) mg/dL Urine Blood Negative (Negative) Urine Nitrite Negative (Negative) Urine Bilirubin Negative (Negative) Urine Urobilinogen Normal (Normal) mg/dL Ur Leukocyte Esterase Negative (Negative) Urine Microscopic RBC 3-5 H (0-3) per hpf Urine Microscopic WBC 3-5 H (0-3) per hpf Ur Squamous Epith Cells Many H (None-Few) per lpf Urine Bacteria None Seen (None-Few) per hpf Hyaline Casts None Seen (None-Few) per lpf Ur Culture Indicated? NO (NO) 04/15/16 Range/Units 18:22 WBC (4.3-11.1) K/mcL RBC (3.82-4.97) M/mcL Hgb (11.5-15.4) g/dL Hct (35.3-44.9) % MCV (83.0-100.0) fL MCH (28.0-33.3) pg MCHC (31.6-35.5) g/dL RDW (11.5-14.5) % Plt Count (140-400) K/mcL MPV (9.4-12.4) fL Immature Gran % (0-4) % Seg Neutrophils % % Lymphocytes % % Monocytes % % Eosinophils % % Basophils % % Neutrophils # (1.6-8.9) K/mcL Lymphocytes # (0.6-4.6) K/mcL Monocytes # (0.0-1.3) K/mcL Eosinophils # (0.0-0.6) K/mcL Basophils # (0.0-0.2) K/mcL Hypochromasia (Not Present) Sodium 139 (136-145) mEq/L Potassium 4.7 H (3.5-4.5) mEq/L Chloride 105 (98-109) mEq/L Carbon Dioxide 27 (19-29) mEq/L BUN 32 H (7-20) mg/dL Creatinine 1.65 H (0.57-1.11) mg/dL Est GFR ( Amer) 37 L (> 60) Est GFR (Non-Af Amer) 31 L (> 60) BUN/Creatinine Ratio 19 (6-26) Glucose 119 H (70-99) mg/dL Calculated Osmolality 296 (280-300) Calcium 8.8 (8.6-10.8) mg/dL Total Bilirubin 0.5 (0.2-1.2) mg/dL AST 23 (5-34) Units/L ALT 8 (0-55) Units/L Alkaline Phosphatase 107 (38-126) Units/L Serum Total Protein 6.6 (6.0-8.3) g/dL Albumin 2.9 L (3.5-5.0) g/dL Globulin 3.7 H (2.4-3.5) g/dL Albumin/Globulin Ratio 0.8 L (1.1-2.2) TSH (0.350-4.840) mcIU/mL Urine Color (Yellow) Urine Clarity (Clear) Urine pH (5.0-8.0) pH Units Ur Specific [place] (1.010-1.025) Urine Protein (Neg-Trace) mg/dL Urine Glucose (UA) (Normal) mg/dL Urine Ketones (Negative) mg/dL Urine Blood (Negative) Urine Nitrite (Negative) Urine Bilirubin (Negative) Urine Urobilinogen (Normal) mg/dL Ur Leukocyte Esterase (Negative) Urine Microscopic RBC (0-3) per hpf Urine Microscopic WBC (0-3) per hpf Ur Squamous Epith Cells (None-Few) per lpf Urine Bacteria (None-Few) per hpf Hyaline Casts (None-Few) per lpf Ur Culture Indicated? (NO)
[2016-04-15 16:24] LABS: Bilirubin,Urine Negative (Negative); Blood,Urine Negative (Negative); Clarity,Urine Clear (Clear); Color,Urine Yellow (Yellow); Glucose,Urine (UA) Normal (Normal); Ketones,Urine Negative (Negative); Leukocyte Esterase,Urine Negative (Negative); Nitrite,Urine Negative (Negative); Protein,Urine 30 mg/dL (Neg-Trace); Specific Gravity,Urine 1.022 (1.010-1.025); Urobilinogen,Urine Normal (Normal)
[2016-04-15] MEDS ORDERED: 0.9 % Sodium Chloride 1,000 ML IV SCH (16:30)
[2016-04-15 16:32] LABS: Bacteria,Urine None Seen per hpf (None-Few); Hyaline Casts,Urine None Seen per lpf (None-Few); Squamous Epithelial Cell,Urine Many per lpf (None-Few)
--- NOTE | 2016-04-15 16:39 | Emergency Department Note ---
Disposition Clinical Impression: Pneumonia Disposition: Admitted As Inpatient Condition: Good Time of Disposition: 18:19 General Adult HPI - General Chief complaint: ED Weakness Stated complaint: Flu like symptoms Source: patient, EMS Limitations: altered mental status Nursing Notes Reviewed: Yes Vital Signs Reviewed: Yes - History of Present Illness HPI Narrative: Female patient being [facility] the [facility]. She has been brought in by EMS. She was discharged from this facility this morning. She is known to facility. Our licensed clinical social worker states the patient is acting different than what she normally is. She is complaining of shortness of breath. Pain Scale: 0 - Related Data Home Medications Medication Instructions Recorded Confirmed Allopurinol [Zyloprim] 100 mg PO DAILY 02/24/16 04/15/16 Escitalopram [Lexapro] 5 mg PO DAILY 02/24/16 04/15/16 Escitalopram [Lexapro] 10 mg PO DAILY 02/24/16 04/15/16 Gemfibrozil [Lopid] 600 mg PO BIDWM 02/24/16 04/15/16 Levothyroxine [Synthroid] 100 mcg PO DAILY 02/24/16 04/15/16 Nystatin POWDER [Nystop] 1 appl TP BID 02/24/16 04/15/16 Rosuvastatin Calcium [Crestor] 5 mg PO DAILY 02/24/16 04/15/16 NIFEdipine [Nifedipine ER] 30 mg PO DAILY 04/15/16 04/15/16 Previous Rx's Medication Instructions Recorded RisperiDONE [RisperDAL] 1 mg PO HS #30 tablet 12/31/14 Meclizine [Antivert] 25 mg PO TID PRN #30 tablet 04/11/16 Allergies Allergy/AdvReac Type Severity Reaction Status Date / Time sulfamethoxazole Allergy Rash Verified 12/26/14 03:50 [From Bactrim] trimethoprim [From Bactrim] Allergy Rash Verified 12/26/14 03:50 Limitations: ROS unobtainable due to patients medical condition (Patient has an MRDD component and is not a reliable resource.) Past Medical History - Past Medical History Medical history: Reports: diabetes, hyperlipidemia, hypertension, osteoporosis, other Surgical history: Reports: cholecystectomy Psychiatric history: Reports: anxiety, depression 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 Is confused.) - Head Head exam: atraumatic, normocephalic, normal inspection - Eye Eye exam: Present: normal appearance, PERRL, EOMI. Absent: scleral icterus - ENT ENT exam: normal exam, normal oropharynx, mucous membranes moist - Neck Neck exam: Present: normal inspection, full ROM, trachea midline - Chest Chest inspection: Present: normal inspection, symmetric chest wall rise. Absent : tenderness - Respiratory Respiratory exam: Present: normal lung sounds bilaterally. Absent: respiratory distress - Cardiovascular Cardiovascular exam: Present: regular rate, normal rhythm, normal heart sounds - Abdominal Exam Abdominal exam: Present: soft, tenderness (Diffusely), normal bowel sounds. Absent: distention, organomegaly - Extremities Exam Extremities exam: Present: normal inspection, full ROM, normal capillary refill. Absent: tenderness, pedal edema - Back Exam Back exam: Present: normal inspection, full ROM. Absent: tenderness, CVA tenderness (R), CVA tenderness (L) - Neurological Exam Neurological exam: Present: alert, oriented X3 - Psychiatric Psychiatric exam: Present: anxious - Skin Skin exam: Present: warm, dry, intact, normal color. Absent: rash, cyanosis Course Course Narrative: Female patient who lives in a prison is brought to the hospital by EMS. She was released from the hospitalist morning. She was seen for shortness of breath. She had 4 L of oxygen on all times while she was in the hospital. She was discharged without oxygen. At the prison she then began to clinic if shortness of breath. She is here she is also complaining of shortness of breath and abdominal pain. Her lung sounds are clear to auscultation bilaterally. Her abdomen is soft and nontender on palpation. She has an altered level of consciousness. I am not sure how far this is from baseline and she does have some mental retardation component. Patient had labs done this morning. - Reevaluation(s) Reevaluation #1: I spoke with the one of the caregivers at the facility that the patient lives. She states the patient was complaining of shortness of breath and asked her to call 911 today. She states the patient started asking for her mother. She states this is not normal for the patient to do this. She was acting differently. She denies the patient falling or getting into any substances. She states that the patient did eat lunch appropriately with no trouble. She is concerned because the patient was discharged and was supposed to be on oxygen. They do not have oxygen at their facility. We will admit patient for possible pneumonia as well as evaluation for oxygen therapy. Patient has no complaints at this time. She states she is feeling better. She is requesting dinner. I have ordered her dinner tray. - Consultations Consultation #1: Dr Tee admitted Pt in stable condition. Time: 18:17 Vital Signs Temperature 98.9 F 04/15/16 15:28 Pulse Rate 85 04/15/16 15:28 Respiratory Rate 18 04/15/16 15:28 Blood Pressure 141/72 04/15/16 15:28 O2 Sat by Pulse Oximetry 96 04/15/16 15:28 Temperature 98.4 F 04/15/16 19:29 Pulse Rate 82 04/15/16 19:29 Respiratory Rate 20 04/15/16 19:29 Blood Pressure 125/79 04/15/16 19:29 O2 Sat by Pulse Oximetry 93 L 04/15/16 19:29 Oxygen Delivery Oxygen Delivery Room Air Medical Decision Making - Medical Records Medical records reviewed: Yes I reviewed the patient's medical records. - Lab Data Lab results reviewed: Yes I reviewed the patient's lab results. Result diagrams: 04/15/16 18:22 04/15/16 18:22 Lab Results 04/15/16 04/15/16 04/15/16 Range/Units 16:07 18:22 18:22 WBC 3.1 L (4.3-11.1) K/mcL RBC 3.73 L (3.82-4.97) M/mcL Hgb 9.7 L (11.5-15.4) g/dL Hct 33.7 L (35.3-44.9) % MCV 90.3 (83.0-100.0) fL MCH 26.0 L (28.0-33.3) pg MCHC 28.8 L (31.6-35.5) g/dL RDW 15.9 H (11.5-14.5) % Plt Count 138 L (140-400) K/mcL MPV 11.1 (9.4-12.4) fL Immature Gran % 1.0 (0-4) % Seg Neutrophils % 69.9 % Lymphocytes % 10.7 % Monocytes % 12.6 % Eosinophils % 5.2 % Basophils % 0.6 % Neutrophils # 2.2 (1.6-8.9) K/mcL Lymphocytes # 0.3 L (0.6-4.6) K/mcL Monocytes # 0.4 (0.0-1.3) K/mcL Eosinophils # 0.2 (0.0-0.6) K/mcL Basophils # 0.0 (0.0-0.2) K/mcL Hypochromasia Present A (Not Present) Sodium (136-145) mEq/L Potassium (3.5-4.5) mEq/L Chloride (98-109) mEq/L Carbon Dioxide (19-29) mEq/L BUN (7-20) mg/dL Creatinine (0.57-1.11) mg/dL Est GFR ( Amer) (> 60) Est GFR (Non-Af Amer) (> 60) BUN/Creatinine Ratio (6-26) Glucose (70-99) mg/dL Calculated Osmolality (280-300) Calcium (8.6-10.8) mg/dL Total Bilirubin (0.2-1.2) mg/dL AST (5-34) Units/L ALT (0-55) Units/L Alkaline Phosphatase (38-126) Units/L Serum Total Protein (6.0-8.3) g/dL Albumin (3.5-5.0) g/dL Globulin (2.4-3.5) g/dL Albumin/Globulin Ratio (1.1-2.2) TSH 1.313 (0.350-4.840) mcIU/mL Urine Color Yellow (Yellow) Urine Clarity Clear (Clear) Urine pH 6.0 (5.0-8.0) pH Units Ur Specific [place] 1.022 (1.010-1.025) Urine Protein 30 H (Neg-Trace) mg/dL Urine Glucose (UA) Normal (Normal) mg/dL Urine Ketones Negative (Negative) mg/dL Urine Blood Negative (Negative) Urine Nitrite Negative (Negative) Urine Bilirubin Negative (Negative) Urine Urobilinogen Normal (Normal) mg/dL Ur Leukocyte Esterase Negative (Negative) Urine Microscopic RBC 3-5 H (0-3) per hpf Urine Microscopic WBC 3-5 H (0-3) per hpf Ur Squamous Epith Cells Many H (None-Few) per lpf Urine Bacteria None Seen (None-Few) per hpf Hyaline Casts None Seen (None-Few) per lpf Ur Culture Indicated? NO (NO) 04/15/16 Range/Units 18:22 WBC (4.3-11.1) K/mcL RBC (3.82-4.97) M/mcL Hgb (11.5-15.4) g/dL Hct (35.3-44.9) % MCV (83.0-100.0) fL MCH (28.0-33.3) pg MCHC (31.6-35.5) g/dL RDW (11.5-14.5) % Plt Count (140-400) K/mcL MPV (9.4-12.4) fL Immature Gran % (0-4) % Seg Neutrophils % % Lymphocytes % % Monocytes % % Eosinophils % % Basophils % % Neutrophils # (1.6-8.9) K/mcL Lymphocytes # (0.6-4.6) K/mcL Monocytes # (0.0-1.3) K/mcL Eosinophils # (0.0-0.6) K/mcL Basophils # (0.0-0.2) K/mcL Hypochromasia (Not Present) Sodium 139 (136-145) mEq/L Potassium 4.7 H (3.5-4.5) mEq/L Chloride 105 (98-109) mEq/L Carbon Dioxide 27 (19-29) mEq/L BUN 32 H (7-20) mg/dL Creatinine 1.65 H (0.57-1.11) mg/dL Est GFR ( Amer) 37 L (> 60) Est GFR (Non-Af Amer) 31 L (> 60) BUN/Creatinine Ratio 19 (6-26) Glucose 119 H (70-99) mg/dL Calculated Osmolality 296 (280-300) Calcium 8.8 (8.6-10.8) mg/dL Total Bilirubin 0.5 (0.2-1.2) mg/dL AST 23 (5-34) Units/L ALT 8 (0-55) Units/L Alkaline Phosphatase 107 (38-126) Units/L Serum Total Protein 6.6 (6.0-8.3) g/dL Albumin 2.9 L (3.5-5.0) g/dL Globulin 3.7 H (2.4-3.5) g/dL Albumin/Globulin Ratio 0.8 L (1.1-2.2) TSH (0.350-4.840) mcIU/mL Urine Color (Yellow) Urine Clarity (Clear) Urine pH (5.0-8.0) pH Units Ur Specific [place] (1.010-1.025) Urine Protein (Neg-Trace) mg/dL Urine Glucose (UA) (Normal) mg/dL Urine Ketones (Negative) mg/dL Urine Blood (Negative) Urine Nitrite (Negative) Urine Bilirubin (Negative) Urine Urobilinogen (Normal) mg/dL Ur Leukocyte Esterase (Negative) Urine Microscopic RBC (0-3) per hpf Urine Microscopic WBC (0-3) per hpf Ur Squamous Epith Cells (None-Few) per lpf Urine Bacteria (None-Few) per hpf Hyaline Casts (None-Few) per lpf Ur Culture Indicated? (NO) - Radiology Data Radiology results reviewed: Yes I reviewed the patient's radiology results. I reviewed the patient's images as well as the radiologist read.
[2016-04-15 18:31] LABS: Basophils % 0.6 %; Mean Corpuscular Volume 90.3 fL (83.0-100.0); Monocytes % 12.6 %; Red Cell Distribution Width 15.9 % (11.5-14.5)
[2016-04-15 18:32] LABS: Eosinophils # 0.2 K/mcL (0.0-0.6); Eosinophils % 5.2 %; Hematocrit 33.7 % (35.3-44.9); Hemoglobin 9.7 g/dL (11.5-15.4); Lymphocytes # 0.3 K/mcL (0.6-4.6); Lymphocytes % 10.7 %; Mean Corpuscular HGB Conc 28.8 g/dL (31.6-35.5); Mean Platelet Volume 11.1 fL (9.4-12.4); Monocytes # 0.4 K/mcL (0.0-1.3); Neutrophils # 2.2 K/mcL (1.6-8.9); Platelet Count 138 K/mcL (140-400); Red Blood Count 3.73 M/mcL (3.82-4.97); Segmented Neutrophils % 69.9 %
[2016-04-15 18:48] LABS: Albumin 2.9 g/dL (3.5-5.0); Albumin/Globulin Ratio 0.8 (1.1-2.2); Bilirubin,Total 0.5 mg/dL (0.2-1.2); Calcium 8.8 mg/dL (8.6-10.8); Globulin 3.7 g/dL (2.4-3.5); Potassium 4.7 mEq/L (3.5-4.5); Total Protein 6.6 g/dL (6.0-8.3)
[2016-04-15 18:54] LABS: Hypochromasia Present (Not Present)
[2016-04-15] MEDS ORDERED: Ondansetron ODT 4 MG TAB.RAPDIS SL PRN (22:36)
[2016-04-15] MEDS ORDERED: Naloxone 0.4 MG/ML INJ IVP PRN (22:36)
--- NOTE | 2016-04-15 22:47 | Internal Med History&Physical ---
<Liudmila Rojas - Last Filed: 04/15/16 23:35> Date of Encounter: 04/15/16 Time of Encounter: 22:47 Assessment and Plan (1) Shortness of breath Current visit: Yes Status: Acute Patient presents with shortness of breath. She was discharged this morning and supposed to be on 4L supplemental O2 at home however it was not set up prior to discharge. O2 saturation 93% on room air. EKG showed normal sinus rhythm. CXR showed low lung volumes and increased bilateral ashley-hilar opascities. There was concern that this could be due to pneumonia however patient is afebrile, WBC is not increasing, patient is not tachycardic or tachypneic and she voices no symptoms of pneumonia. On review of chest xray, believe that this demonstrates more vascular prominance due to pulmonary congestion. Will provide supplemental oxygen and get a BNP and CRP. Will also check troponins. 1. Supplemental oxygen saturation as needed 2. Labs: BNP, CRP, troponin 3. Consult placed to manager social to help with organizing home oxygen. (2) Generalized weakness Current visit: No Status: Acute Patient complains of generalized weakness and feeling unsteady on her feet. Will place consult to PT/OT for evaluation and therapy. 1. PT/OT consult (3) Dizziness Current visit: Yes Status: Acute Patient reports dizziness with standing. She says that she feels unsteady on her feet and she is worried she will fall. Will check troponin and do orthostatic vital signs/blood pressure. Patient does take Meclizine TID for dizziness. 1. Troponin 2. Orthostatic vital signs/blood pressure 3. Continue home dose of Meclizine (4) Acute on chronic renal failure Current visit: No Status: Acute Patient with history of stage III CKD and acute kidney injury. Creatinine appears to be improving. Will continue to monitor. No IV fluids due to pulmonary congestion. Elevated troponins were consider to be secondary to KATHARINA, will check troponin as they should be better to ensure that there was not another cause. 1. Monitor creatinine/GFR 2. Avoid IV fluids 3. Troponin (5) Confusion Current visit: Yes Status: Acute Patient reports increased confusion throughout the day. At this time, patient is awake, alert, and oriented to person, place and situation. Cause of confusion is unknown but may be related to her shortness of breath. Head CT showed no acute changes and stable chronic microvascular ischemic disease. Will monitor patient and provide supplemental oxygen. 1. Supplemental oxygen as needed. (6) DVT prophylaxis Current visit: No Status: Acute Heparin 5,000 Q8H for DVT prophylaxis Internal Medicine - H&P: HPI Admitted From: Emergency Dept Plans for Post Hospital Care: Home History of present illness: Ms. Madera is a 70 year old female with PMH including CKD stage III, diabetes, hypertension, chronic respiratory failure due to obesity hyperventilation syndrome and morbid obesity. Patient was brought from the senior living where she lives via EMS this afternoon due to shortness of breath and confusion. Patient was just discharged from [facility] this morning. Patient was admitted 04/13/2016 for nausea/vomiting/diarrhea, dehydration and acute kidney injury with hyperkalemia. She received IV fluid hydration and her hyperkalemia resolved and her kidney function improved. They held her lisinopril and metformin upon discharge. Plan was for patient to have a repeat BMP in 3 days and follow up with a PCP. Patient was also to be discharged home on 4L supplemental oxygen. It appears patient was qualified for oxygen but it was not completely set up before patient was discharged home. Today, patient developed shortness of breath on room air at her senior living. She reportable became confused and starting asking for her mother, which is abnormal for her. On discussion with patient, she reports worsening SOB and confusion. She also states that she gets dizzy when she stands up and she feels unsteady on her feet. Patient reports falling approximately 1 month ago and being scared she will fall again. She keeps repeating that she just doesn' t feel like herself and she feels sick. Patient states that she has had nausea/ vomiting and been unable to eat over the last week but denies any specifically today or since discharge. She denies headache, changes in vision, difficulty swallowing, runny nose/congestion, cough, chest pain or pressure, abdominal pain , or changes in bowel or bladder. In the ED, patient was afebrile and vital signs were largely within normal limits. Oxygenation saturation was 93% on room air. Labs showed a chronic pancytopenia with WBC of 3.1, Hgb 9.7 and platelets of 138. Creatinine 1.65, improving. UA gave no indication of a UTI. CXR showed low lung volumes, chronic elevated right francis-diaphram and increased bilateral ashley-hilar opacities. CT head showed no acute process, bilaterally globe proptosis and stable chronic microvascular ischemic disease. On exam, patient is awake and alert. While she states that she feels confused, she is oriented to person, place and situation. Pupils are equal an reactive. Lungs clear to auscultation. Heart regular rate and rhythm. Abdomen soft, non- tender. Chronic venous changes BL lower extremities with some edema. Motor and sensation grossly intact BL upper and lower extremities. Past Med Surg Social Fam HX - Past Medical History Medical history: diabetes, hyperlipidemia, hypertension, osteoporosis, other Psychiatric history: anxiety, depression - Past Surgical History Surgical History: cholecystectomy - Social History Smoking Status: Never smoker Smokeless Tobacco Status: No Alcohol use: none Drug use: none - Family History Brother Hx Family Cardiac Disorders: Yes (CAD) Internal Medicine - H&P: Meds RisperiDONE [RisperDAL] 1 mg PO HS #30 tablet 12/31/14 [Rx] Allopurinol [Zyloprim] 100 mg PO DAILY 02/24/16 [History] Escitalopram [Lexapro] 5 mg PO DAILY 02/24/16 [History] Escitalopram [Lexapro] 10 mg PO DAILY 02/24/16 [History] Gemfibrozil [Lopid] 600 mg PO BIDWM 02/24/16 [History] Levothyroxine [Synthroid] 100 mcg PO DAILY 02/24/16 [History] Nystatin POWDER [Nystop] 1 appl TP BID 02/24/16 [History] Rosuvastatin Calcium [Crestor] 5 mg PO DAILY 02/24/16 [History] Meclizine [Antivert] 25 mg PO TID PRN #30 tablet 04/11/16 [Rx] NIFEdipine [Nifedipine ER] 30 mg PO DAILY 04/15/16 [History] Allergies sulfamethoxazole [From Bactrim] Allergy (Verified 12/26/14 03:50) Rash trimethoprim [From Bactrim] Allergy (Verified 12/26/14 03:50) Rash All Systems PM: A 10-system review of systems was performed and is negative for pertinent findings except as documented above in the HPI. - Constitutional Constitutional: no chills, no fever(s) - EENT Eyes: no change in vision Nose, mouth and throat: no nasal congestion, no sore throat - Cardiovascular Cardiovascular ROS IM: dyspnea, edema, no chest pain, no irregular heart rhythm , no palpitations - Respiratory Respiratory: dyspnea, no cough, no hemoptysis, no wheezing, no pain on inspiration, no chest congestion - Gastrointestinal Gastrointestinal: no abdominal pain, no constipation, no diarrhea, no nausea, no other - Genitourinary Genitourinary: no change in urinary stream, no dysuria - Neurological Neurological ROS: confusion, dizziness, weakness Additional comments: worried about falling - Constitutional Vitals: Temp Pulse Resp BP Pulse Ox 98.4 F 82 20 125/79 96 04/15/16 19:29 04/15/16 19:29 04/15/16 19:29 04/15/16 19:29 04/15/16 21:44 General appearance: Present: A&O X 3, pleasant, no acute distress, answers questions appropriately - Head Head exam: Present: atraumatic, normal inspection, normocephalic - Eye Eye exam: Present: normal appearance, PERRL - ENT ENT exam: Present: mucous membranes moist - Cardiovascular Cardiovascular exam: Present: RRR - GI/Abdominal GI/Abdominal exam: Present: normal bowel sounds, soft. Absent: guarding, rebound, rigid, tenderness - Extremities Exam Extremities exam: Present: pedal edema Additional comments: chronic venous stasis changes - Neurological Exam Neurological exam: Present: alert, CN II-XII intact, oriented X3, no focal deficits Internal Med - H&P Results - Labs CBC & Chem 7: 04/15/16 18:22 04/15/16 18:22 - EKG Data Prior EKG available for review: no Interpretation IM: normal EKG EKG comments: 04/15/16 23:17 EKG shows normal sinus rhythm with no ST segment elevation or T wave inversion. Vent rat 75bpm, [place] int 156ms, QRS dur 100ms, QTc 362ms. <Leah Monroe - Last Filed: 04/16/16 05:50> Date of Encounter: 04/15/16 Internal Medicine - H&P: HPI History of present illness: Ms. Madera is a 70 year old female All Systems PM: A 10-system review of systems was performed and is negative for pertinent findings except as documented above in the HPI. - Constitutional Vitals: Temp Pulse Resp BP Pulse Ox 98.3 F 74 19 119/76 96 04/15/16 23:08 04/15/16 23:08 04/15/16 23:08 04/15/16 23:08 04/15/16 23:08 Internal Med - H&P Results - Labs CBC & Chem 7: 04/15/16 18:22 04/15/16 18:22 Labs: Cardiac Enzymes 04/15/16 Range/Units 22:58 Troponin I 0.03 (0-0.03) ng/mL - Attending Attestation I performed a history and physical examination of the patient and discussed his management with the resident / Paid Search Marketing Analyst (Dr Rojas). I reviewed the residents note and agree with the documented findings and plan of care, with additions as below. 70 Y/F, with diabetes, hypertension, morbid obesity, ??chronic respiratory failure. She was discharged today and per the discharge summary, she was supposed to use oxygen 4 LPM. Pt apparently did not have oxygen at the senior living. She reportedly had shortness of breath, dizziness on standing up (which was present for several days and she is concerned that she may fall, when she stands up). O/E: Not in acute distress. Lungs clear to auscultation. Cardiac regular rate and rhythm. B/L leg edema present. Labs reviewed. Creatinine is trending down. UA is negative for urinary tract infection. Pancytopenia. CXR reviewed. Chronic elevation of right hemidiaphragm. I personally suspect patient may have pulmonary edema based on the chest x-ray. CT head shows no acute intracranial abnormality. A/P: - Chronic respiratory failure: Per the previous admission notes, she apparently has chronic respiratory failure. Continue supplemental oxygen. Will need to review with immigration case worker / social professionals to arrange for home O2 at discharge, if she qualifies. - Possible pulmonary edema: will give a dose of IV Lasix. Echo from February 2016 showed LVEF of 60-65%. - Dizziness: Will check orthostatics, PT/OT consult
[2016-04-16] MEDS: Acetaminophen 325 MG TABLET PO PRN ×2 (00:33→18:50)
[2016-04-16] MEDS: risperiDONE 1 MG TABLET PO SCH ×2 (00:33→20:53)
[2016-04-16] MEDS: *HR* Heparin 5,000 UNIT/ML VIAL SQ SCH ×4 (00:33→23:47)
[2016-04-16] MEDS ORDERED: Furosemide 20 MG/2 ML VIAL IVP ONE (05:30)
[2016-04-16 06:18] LABS: Calcium 8.9 mg/dL (8.6-10.8); Potassium 4.5 mEq/L (3.5-4.5)
[2016-04-16 06:20] LABS: Basophils % 0.8 %; Eosinophils # 0.2 K/mcL (0.0-0.6); Eosinophils % 6.3 %; Hematocrit 33.3 % (35.3-44.9); Hemoglobin 9.8 g/dL (11.5-15.4); Immature Granulocytes % 1.2 % (0-4); Immature Platelets 6.4 % (1.1-6.1); Lymphocytes # 0.5 K/mcL (0.6-4.6); Lymphocytes % 18.7 %; Mean Corpuscular HGB Conc 29.4 g/dL (31.6-35.5); Mean Corpuscular Hemoglobin 26.6 pg (28.0-33.3); Mean Corpuscular Volume 90.2 fL (83.0-100.0); Mean Platelet Volume 12.3 fL (9.4-12.4); Monocytes # 0.4 K/mcL (0.0-1.3); Monocytes % 14.3 %; Neutrophils # 1.5 K/mcL (1.6-8.9); Platelet Count 131 K/mcL (140-400); Red Blood Count 3.69 M/mcL (3.82-4.97); Red Cell Distribution Width 15.9 % (11.5-14.5); Segmented Neutrophils % 58.7 %
[2016-04-16 06:52] LABS: Polychromasia 1+ (Not Present); Schistocytes 1+ (Not Present)
[2016-04-16 06:54] LABS: Platelet Estimate Decreased (Normal)
[2016-04-16] MEDS: NIFEdipine XL (24 HR) 30 MG TAB.ER.24 PO SCH (08:14)
[2016-04-16] MEDS: Nystatin POWDER 30 GM BOTTLE TP SCH ×2 (08:16→20:53)
[2016-04-16 12:25] LABS: ABG Base Excess 2.6 mEq/L (-2.0 to 3.0); ABG HCO3 30.8 mEQ/L (21-27); ABG Oxygen Saturation 96 % (95-98); ABG PCO2 67 mmHg (35-45); ABG PH 7.27 pH Units (7.32-7.45); ABG PO2 95 mmHg (85-104); ABG TCO2 32.9 mEq/L (20-26)
[2016-04-16 12:26] LABS: Blood Gas Liter Flow 2 L/MIN
--- NOTE | 2016-04-16 12:56 | Internal Med Progress Note ---
Date of Encounter: 04/16/16 Time of Encounter: 09:00 - Assessment and plan (1) Confusion Current Visit: Yes Status: Resolved Assessment and plan: Patient alert and oriented 3 during my interaction with her. Patient states she feels as if she is in a fold and confused at times. ABG's checked as she was supposed to go home on 4L yesterday and went home on room air. ABG's revealing mild respiratory acidosis. We will check tox screen. Chest x-ray consistent with multifocal pneumonia, no signs of sepsis. Urinalysis negative. Head CT negative. Possibly discharge back to senior care tomorrow pending clinical outcomes. ITS Impressions Head CT 04/15/16 16:17 IMPRESSION: 1. No acute intracranial abnormality. 2. Bilateral globe proptosis. Correlate with signs of a thyroid ophthalmopathy. 3. Stable chronic microvascular white matter ischemic disease. D/ / 04/15/2016 17:42:14 David Roger MD / ricardo Interpreting Provider: David Roger MD Chest X-Ray 04/15/16 16:38 IMPRESSION: 1. Low lung volumes with chronic elevation of the right hemidiaphragm. 2. Increased ill-defined bilateral perihilar opacities concerning for multifocal pneumonia. D/ / Babak Fonseca MD / Babak Fonseca MD Interpreting Provider: Babak Fonseca MD (2) HCAP (healthcare-associated pneumonia) Current Visit: No Status: Acute Assessment and plan: Patient lives in a senior care and has had several a recent hospital admission. Chest x-ray consistent with multifocal pneumonia of unknown bacterial etiology. Heart rate and blood pressure stable. She is saturating well on 2 L per nasal cannula continuously. Levofloxacin initiated. ITS Impressions Chest X-Ray 04/15/16 16:38 IMPRESSION: 1. Low lung volumes with chronic elevation of the right hemidiaphragm. 2. Increased ill-defined bilateral perihilar opacities concerning for multifocal pneumonia. D/ / Babak Fonseca MD / Babak Fonseca MD Interpreting Provider: Babak Fonseca MD (3) Learning disability Current Visit: Yes Status: Suspected Assessment and plan: Patient lives in a senior care with 7 other individuals. She appears mildly developmentally delayed. She is able to answer simple questions. (4) CKD (chronic kidney disease) stage 3, GFR 30-59 ml/min Current Visit: Yes Status: Chronic Assessment and plan: Patient is borderline chronic kidney disease stage 3/4. Currently at the high end of her normal, we will continue to trend with diuresis. (5) Acute respiratory failure with hypoxia and hypercapnia Current Visit: No Status: Acute Assessment and plan: patient stating she is on oxygen at home, but her senior care leader states she is not. She has qualified for 2L per HI continuously. (6) DVT prophylaxis Current Visit: No Status: Acute Assessment and plan: Subcutaneous heparin (7) Generalized weakness Current Visit: No Status: Acute Assessment and plan: Acute on chronic. Throughout this admission, patient has been purposefully incontinent of urine and has continually asked for support from several different staff members. Of note, she was up with assistance of one person. HEENT consultations are pending. (8) Anemia Current Visit: No Status: Chronic Assessment and plan: Stable and consistent with her baseline, no signs of active bleeding Qualifiers: Anemia type: other cause Other causes of anemia: chronic disease, kidney Qualified Code(s): N18.9 - Chronic kidney disease, unspecified; D63.1 - Anemia in chronic kidney disease (9) CHF (congestive heart failure) Current Visit: No Status: Chronic Assessment and plan: she appears mildly fluid overloaded on examination. She has 1+ pitting edema bilaterally. BNP elevated- chronic. Suspect acute on chronic diastolic heart failure with preserved ejection fraction. Patient had a limited echocardiogram on 02/27/16 revealed ejection fraction of 60-65%. She was given a one-time dose of IV Lasix overnight, will initiate by mouth Lasix and monitor. Fluid and sodium restricted diet. (10) DM type 2 (diabetes mellitus, type 2) Current Visit: No Status: Chronic Assessment and plan: Appears well controlled however no recent A1c, will check with am labs Qualifiers: Diabetes mellitus complication status: with kidney complications Diabetes mellitus complication detail: with chronic kidney disease Diabetes mellitus terminal makeup operator insulin use: without terminal makeup operator use Chronic kidney disease stage: stage 3 (moderate) Qualified Code(s): E11.22 - Type 2 diabetes mellitus with diabetic chronic kidney disease; N18.3 - Chronic kidney disease, stage 3 ( moderate) (11) Hypertension Current Visit: No Status: Chronic Assessment and plan: Controlled, we will continue to trend and adjust medications as indicated. Qualifiers: Hypertension type: essential hypertension Qualified Code(s): I10 - Essential (primary) hypertension (12) Hyperkalemia Current Visit: No Status: Resolved (13) Morbid obesity with BMI of 45.0-49.9, adult Current Visit: Yes Status: Chronic - Subjective Interval history: Patient seen and examined. On examination, patient initially asleep but awakened easily to voice. Patient alert and oriented 3 and states her shortness of breath is improving. She states she was not able to eat all of her breakfast. She states that she feels as if she is depressed stating "I know what fog is, its depression." She denies any suicidal ideation but states she generally does not feel well. She is unable to elaborate. She denies specific pain with stated she distended overall did not feel well. She was also concerned that she was having intermittent bouts of confusion. - Constitutional Vitals: Temp Pulse Resp BP Pulse Ox 98.5 F 78 17 122/80 96 04/16/16 11:37 04/16/16 11:37 04/16/16 11:37 04/16/16 11:37 04/16/16 11:37 General appearance: Present: A&O X 3, pleasant, no acute distress, answers questions appropriately - Head Head exam: Present: atraumatic, normocephalic - Eye Eye exam: Present: PERRL, conjuntiva pink, sclera anicteric Pupils: Present: PERRL - Neck Neck exam general surgery: Present: supple, trachea midline. Absent: lymphadenopathy - Respiratory Respiratory exam: Present: decreased breath sounds. Absent: accessory muscle use, rales, respiratory distress, rhonchi, wheezes - Cardiovascular Cardiovascular exam: Present: RRR, +S1, +S2. Absent: diastolic murmur, gallop, rubs, systolic murmur - GI/Abdominal GI/Abdominal exam: Present: distended, normal bowel sounds, soft, no peritoneal signs. Absent: tenderness - Extremities Exam Extremities exam: Present: pedal edema (nonpitting), warm, radial pulses palpable and symetrical. Absent: calf tenderness, cyanotic - Expanded Lower Extremities Exam Lower Leg exam: Present: erythema, tenderness Ankle exam: Present: erythema, tenderness Neuro vascular tendon exam: Present: no vascular compromise - Neurological Exam Neurological exam: Present: alert, CN II-XII intact, oriented X3, no focal deficits, strengths equal and symetr throughout. Absent: pronater drift, facial droop, speech deficit - Skin Skin exam: Present: dry, intact, pallor, warm Internal Medicine: Result - Labs CBC & Chem 7: 04/16/16 04:55 04/16/16 04:55 Labs: Short CBC 04/16/16 Range/Units 04:55 WBC 2.5 L (4.3-11.1) K/mcL Hgb 9.8 L (11.5-15.4) g/dL Hct 33.3 L (35.3-44.9) % Plt Count 131 L (140-400) K/mcL Neutrophils # 1.5 L (1.6-8.9) K/mcL BMP 04/16/16 04:55 Sodium 142 Potassium 4.5 Chloride 107 Carbon Dioxide 25 BUN 31 H Creatinine 1.57 H Glucose 87 Calcium 8.9 Cardiac Enzymes 04/15/16 04/16/16 04/16/16 Range/Units 22:58 04:55 11:11 Troponin I 0.03 0.04 H* 0.02 (0-0.03) ng/mL - ABG Interpretation ABG results: ABG ABG pH 7.27 pH Units (7.32-7.45) L 04/16/16 12:10 ABG pCO2 67 mmHg (35-45) H 04/16/16 12:10 ABG pO2 95 mmHg (85-104) 04/16/16 12:10 ABG O2 Saturation 96 % (95-98) 04/16/16 12:10 Consult Discharge Plan - Plan Referrals: NO,PCP [Primary Care Provider] -
[2016-04-16] MEDS ORDERED: Levofloxacin 750 MG/150 ML 750 MG/150 ML BAG IVPB SCH (15:30)
[2016-04-16] MEDS: Furosemide 20 MG TABLET PO SCH (16:10)
--- NOTE | 2016-04-16 19:17 | Electrocardiograph Report ---
[address] [place] [address] Test Date: 2016-04-15 Pat Name: Juwan Madera Department: 113 Room: 3B21 Gender: F Wellness Nurse Rn: : 1945 Requested By: Tati Cates Order Number: [id number] Reading MD: Kwabena Fall MD Measurements Intervals [place] Rate: 75 P: 36 DE: 156 QRS: 22 QRSD: 100 T: 32 QT: 333 QTc: 362 Interpretive Statements SINUS RHYTHM Electronically Signed On 04-16-2016 19:15:40 EST by Kwabena Fall MD
[2016-04-17 04:52] LABS: Hemoglobin A1C 5.3 %
[2016-04-17] MEDS: *HR* Heparin 5,000 UNIT/ML VIAL SQ SCH ×3 (06:21→22:18)
[2016-04-17] MEDS: Furosemide 20 MG TABLET PO SCH ×2 (07:34→16:49)
[2016-04-17] MEDS: NIFEdipine XL (24 HR) 30 MG TAB.ER.24 PO SCH (07:34)
[2016-04-17] MEDS: Nystatin POWDER 30 GM BOTTLE TP SCH ×2 (07:56→21:18)
[2016-04-17 08:05] LABS: Amphetamine Screen,Urine Negative ng/mL (Cutoff=1000); Barbiturate Screen,Urine Negative ng/mL (Cutoff=200); Benzodiazepines Screen,Urine Negative ng/mL (Cutoff=200); Cannabinoid Screen,Urine Negative ng/mL (Cutoff = 50); Cocaine Screen,Urine Negative ng/mL (Cutoff= 300); Opiate Screen,Urine Negative ng/mL (Cutoff=300); Phencyclidine Screen,Urine Negative ng/mL (Cutoff=25)
--- NOTE | 2016-04-17 16:00 | Internal Med Progress Note ---
Date of Encounter: 04/17/16 Time of Encounter: 09:50 - Assessment and plan (1) Pneumonia Current Visit: Yes Status: Suspected Assessment and plan: Suspected Organism unknown HCAP coverage due to residence in [facility] and recent hospitalization Patient however has no symptoms-no cough, no fever She did get hypoxic and complained of shortness of breath Continue levaquin, change to po a.m Possible d/c a.m Qualifiers: Pneumonia type: due to unspecified organism Laterality: bilateral Lung location: unspecified part of lung Qualified Code(s): J18.9 - Pneumonia, unspecified organism (2) CKD (chronic kidney disease) stage 3, GFR 30-59 ml/min Current Visit: Yes Status: Chronic Assessment and plan: Patient is borderline chronic kidney disease stage 3/4. Currently at the high end of her normal, we will continue to trend with diuresis. (3) Learning disability Current Visit: Yes Status: Suspected Assessment and plan: Patient lives in a [facility] with [facility] other individuals. She appears mildly developmentally delayed. She is able to answer simple questions. (4) Confusion Current Visit: Yes Status: Resolved Assessment and plan: Resolved ITS Impressions Head CT 04/15/16 16:17 IMPRESSION: 1. No acute intracranial abnormality. 2. Bilateral globe proptosis. Correlate with signs of a thyroid ophthalmopathy. 3. Stable chronic microvascular white matter ischemic disease. D/ / 04/15/2016 17:42:14 David Roger MD / ricardo Interpreting Provider: David Roger MD Chest X-Ray 04/15/16 16:38 IMPRESSION: 1. Low lung volumes with chronic elevation of the right hemidiaphragm. 2. Increased ill-defined bilateral perihilar opacities concerning for multifocal pneumonia. D/ / Babak Fonseca MD / Babak Fonseca MD Interpreting Provider: Babak Fonseca MD (5) CHF (congestive heart failure) Current Visit: Yes Status: Chronic Assessment and plan: she appeared mildly fluid overloaded on admission, she still has pedal edema and CXR findings are equivocal for Pulmonary congestion vs pneumonia.BNP elevated- chronic. Suspect acute on chronic diastolic heart failure with preserved ejection fraction. Patient had a limited echocardiogram on 02/27/16 revealed ejection fraction of 60- 65%. Continue lasix po, monitor chem Qualifiers: Congestive heart failure type: diastolic Congestive heart failure chronicity: acute on chronic Qualified Code(s): I50.33 - Acute on chronic diastolic (congestive) heart failure (6) DM type 2 (diabetes mellitus, type 2) Current Visit: Yes Status: Chronic Assessment and plan: A1C 5.3 Patient is not on medications She may have been pre-diabetic at some time Continue to monitor Qualifiers: Diabetes mellitus complication status: with kidney complications Diabetes mellitus complication detail: with chronic kidney disease Diabetes mellitus correction insulin use: without correction use Chronic kidney disease stage: stage 3 (moderate) Qualified Code(s): E11.22 - Type 2 diabetes mellitus with diabetic chronic kidney disease; N18.3 - Chronic kidney disease, stage 3 ( moderate) (7) Morbid obesity with BMI of 45.0-49.9, adult Current Visit: Yes Status: Chronic - Subjective Interval history: 70 Y/O F Bed-bound, resident of [facility] re-admission on same day of discharge 04/15 for hypoxic respiratory failure , need for O2, suspected pneumonia by CXR/ Pulmonary vascular congestion She has a PMH of COPD, chronic retainer by CO2 on chem and ABG, CHFpEF, CKD III , Pancytopenia, Morbid Obesity, MDRR She is seen at bedside, denies new complains She reports to me "I do not want to go home today, I will go tomorrow" She has no cough, SOB, chest pain, abdominal discomfort - Constitutional Vitals: Temp Pulse Resp BP Pulse Ox 98.2 F 79 16 105/71 95 04/17/16 15:21 04/17/16 15:21 04/17/16 15:21 04/17/16 15:21 04/17/16 15:21 General appearance: Present: A&O X 3, morbidly obese, pleasant, no acute distress, answers questions appropriately - Head Head exam: Present: atraumatic, normocephalic - Eye Eye exam: Present: PERRL, conjuntiva pink, sclera anicteric Pupils: Present: PERRL - Neck Neck exam general surgery: Present: supple, trachea midline. Absent: lymphadenopathy - Respiratory Respiratory exam: Present: CTAB. Absent: accessory muscle use, rales, rhonchi, wheezes - Cardiovascular Cardiovascular exam: Present: RRR, +S1, +S2. Absent: diastolic murmur, gallop, rubs, systolic murmur - GI/Abdominal GI/Abdominal exam: Present: normal bowel sounds, soft, no peritoneal signs. Absent: distended, tenderness - Extremities Exam Extremities exam: Present: pedal edema (trace), warm, radial pulses palpable and symetrical. Absent: calf tenderness, cyanotic Additional comments: Chronic venous stasis changes - Neurological Exam Neurological exam: Present: alert, oriented X3, no focal deficits. Absent: pronater drift, facial droop, speech deficit Additional comments: Gait not assessed - Skin Skin exam: Present: dry Internal Medicine: Result - Labs CBC & Chem 7: 04/16/16 04:55 04/17/16 03:35 Labs: BMP 04/17/16 03:35 Sodium 143 Potassium 4.0 Chloride 106 Carbon Dioxide 29 BUN 32 H Creatinine 1.61 H Glucose 121 H Calcium 9.0 - ABG Interpretation ABG results: ABG ABG pH 7.27 pH Units (7.32-7.45) L 04/16/16 12:10 ABG pCO2 67 mmHg (35-45) H 04/16/16 12:10 ABG pO2 95 mmHg (85-104) 04/16/16 12:10 ABG O2 Saturation 96 % (95-98) 04/16/16 12:10 Consult Discharge Plan - Plan Referrals: NO,PCP [Primary Care Provider] -
[2016-04-17] MEDS: Acetaminophen 325 MG TABLET PO PRN (19:23)
[2016-04-17] MEDS: risperiDONE 1 MG TABLET PO SCH (21:18)
[2016-04-18 04:55] LABS: Calcium 9.3 mg/dL (8.6-10.8); Potassium 4.5 mEq/L (3.5-4.5)
[2016-04-18] MEDS: *HR* Heparin 5,000 UNIT/ML VIAL SQ SCH ×2 (06:10→15:06)
[2016-04-18] MEDS: NIFEdipine XL (24 HR) 30 MG TAB.ER.24 PO SCH (08:55)
[2016-04-18] MEDS: Nystatin POWDER 30 GM BOTTLE TP SCH (08:55)
[2016-04-18] MEDS: Furosemide 20 MG TABLET PO SCH ×2 (08:55→15:06)
--- NOTE | 2016-04-18 12:01 | Physician Discharge Referral ---
ExtendedCare Referral Info Provider in Charge after Transfer: PCP Institutional Level of Care: Skilled - Diagnosis (1) Pneumonia Priority: Primary Status: Suspected (2) CKD (chronic kidney disease) stage 3, GFR 30-59 ml/min Priority: Secondary Status: Chronic (3) Learning disability Priority: Secondary Status: Suspected (4) Confusion Priority: Secondary Status: Resolved (5) CHF (congestive heart failure) Priority: Secondary Status: Chronic (6) DM type 2 (diabetes mellitus, type 2) Priority: Secondary Status: Chronic (7) Morbid obesity with BMI of 45.0-49.9, adult Priority: Secondary Status: Chronic Prognosis: Good Aware of Diagnosis: Patient Aware of Prognosis: Patient - Transfer Medications Prescriptions: Furosemide [Lasix] 20 mg PO DAILY #30 tablet Levofloxacin 750 mg PO Q48H #6 tablet Home Medications: RisperiDONE [RisperDAL] 1 mg PO HS #30 tablet 12/31/14 [Rx] Allopurinol [Zyloprim] 100 mg PO DAILY 02/24/16 [History] Escitalopram [Lexapro] 5 mg PO DAILY 02/24/16 [History] Escitalopram [Lexapro] 10 mg PO DAILY 02/24/16 [History] Gemfibrozil [Lopid] 600 mg PO BIDWM 02/24/16 [History] Levothyroxine [Synthroid] 100 mcg PO DAILY 02/24/16 [History] Nystatin POWDER [Nystop] 1 appl TP BID 02/24/16 [History] Rosuvastatin Calcium [Crestor] 5 mg PO DAILY 02/24/16 [History] Meclizine [Antivert] 25 mg PO TID PRN #30 tablet 04/11/16 [Rx] NIFEdipine [Nifedipine ER] 30 mg PO DAILY 04/15/16 [History] Oxygen 2 l IN CONT #1 each 04/16/16 [Rx] Furosemide [Lasix] 20 mg PO DAILY #30 tablet 04/18/16 [Rx] Levofloxacin 750 mg PO Q48H #6 tablet 04/18/16 [Rx] Allergies/Adverse Reactions: Allergies sulfamethoxazole [From Bactrim] Allergy (Verified 12/26/14 03:50) Rash trimethoprim [From Bactrim] Allergy (Verified 12/26/14 03:50) Rash - Respiratory Orders Oxygen / L per min (2-3L/minute to target O2 Sat .92%) Smoking Cessation: Smoking cessation has been advised. For more information, call the [place] Tobacco Quit Line at 9-230-ZAAA-NOW. - Advance Directives Code Status: Full Code - Mobility Orders Other - Rehabiliation Orders Rehab Potential: Fair Rehab Orders: ROM Exercises - Diet Orders Renal, Cardiac CERTIFICATION: I certify that the transfer of the above named patient to an Extended Care Facility is necessary for the continuing treatment of the diagnosis listed. The above information is true and accurate reflection of patient's current condition. Confidential - Redisclosure prohibited without a patient's written consent.
--- NOTE | 2016-04-18 13:09 | Discharge Summary ---
Date of Encounter: 04/18/16 Time of Encounter: 13:07 - Discharge Diagnosis (1) Pneumonia Priority: Primary Status: Suspected Comments: Suspected Organism unknown HCAP coverage due to residence in [facility] and recent hospitalization Continue Levofloxacin po at home Chest X-Ray 04/15/16 16:38 IMPRESSION: 1. Low lung volumes with chronic elevation of the right hemidiaphragm. 2. Increased ill-defined bilateral perihilar opacities concerning for multifocal pneumonia. D/ / Babak Fonseca MD / Babak Fonseca MD Interpreting Provider: Babak Fonseca MD Qualifiers: Pneumonia type: due to unspecified organism Laterality: bilateral Lung location: unspecified part of lung Qualified Code(s): J18.9 - Pneumonia, unspecified organism (2) CKD (chronic kidney disease) stage 3, GFR 30-59 ml/min Priority: Secondary Status: Chronic Comments: Patient is borderline chronic kidney disease stage 3. Stable creatinine (3) Learning disability Priority: Secondary Status: Suspected Comments: Patient lives in a [facility] with 7 other individuals. She appears mildly developmentally delayed. She is able to answer simple questions. She is alert and oriented X3 She is stable to return to her alf (4) Confusion Priority: Secondary Status: Resolved Comments: Stated per patient on arrival patient alert, oriented X 3 during review TSH is WNL Head CT 04/15/16 16:17 IMPRESSION: 1. No acute intracranial abnormality. 2. Bilateral globe proptosis. Correlate with signs of a thyroid ophthalmopathy. 3. Stable chronic microvascular white matter ischemic disease. D/ / 04/15/2016 17:42:14 David Roger MD / bcarter Interpreting Provider: David Roger MD (5) CHF (congestive heart failure) Priority: Secondary Status: Chronic Comments: she appeared mildly fluid overloaded on admission, pedal edema has significantly resolved Suspect acute on chronic diastolic heart failure with preserved ejection fraction. Patient had a limited echocardiogram on 02/27/16 revealed ejection fraction of 60- 65%. Continue lasix po daily Recommend PCP to check Chem routinely Qualifiers: Congestive heart failure type: diastolic Congestive heart failure chronicity: acute on chronic Qualified Code(s): I50.33 - Acute on chronic diastolic (congestive) heart failure (6) DM type 2 (diabetes mellitus, type 2) Priority: Secondary Status: Chronic Qualifiers: Diabetes mellitus complication status: with kidney complications Diabetes mellitus complication detail: with chronic kidney disease Diabetes mellitus oysterman insulin use: without oysterman use Chronic kidney disease stage: stage 3 (moderate) Qualified Code(s): E11.22 - Type 2 diabetes mellitus with diabetic chronic kidney disease; N18.3 - Chronic kidney disease, stage 3 ( moderate) (7) Morbid obesity with BMI of 45.0-49.9, adult Priority: Secondary Status: Chronic - Discharge Medications Prescriptions: Furosemide [Lasix] 20 mg PO DAILY #30 tablet Levofloxacin 750 mg PO Q48H #6 tablet Home Medications: RisperiDONE [RisperDAL] 1 mg PO HS #30 tablet 12/31/14 [Rx] Allopurinol [Zyloprim] 100 mg PO DAILY 02/24/16 [History] Escitalopram [Lexapro] 5 mg PO DAILY 02/24/16 [History] Escitalopram [Lexapro] 10 mg PO DAILY 02/24/16 [History] Gemfibrozil [Lopid] 600 mg PO BIDWM 02/24/16 [History] Levothyroxine [Synthroid] 100 mcg PO DAILY 02/24/16 [History] Nystatin POWDER [Nystop] 1 appl TP BID 02/24/16 [History] Rosuvastatin Calcium [Crestor] 5 mg PO DAILY 02/24/16 [History] Meclizine [Antivert] 25 mg PO TID PRN #30 tablet 04/11/16 [Rx] NIFEdipine [Nifedipine ER] 30 mg PO DAILY 04/15/16 [History] Oxygen 2 l IN CONT #1 each 04/16/16 [Rx] Furosemide [Lasix] 20 mg PO DAILY #30 tablet 04/18/16 [Rx] Levofloxacin 750 mg PO Q48H #6 tablet 04/18/16 [Rx] Allergies/Adverse Reactions: Allergies sulfamethoxazole [From Bactrim] Allergy (Verified 12/26/14 03:50) Rash trimethoprim [From Bactrim] Allergy (Verified 12/26/14 03:50) Rash Date of admission: 04/16/16 15:02 Primary care physician: PCP NO Discharging clinician: Shashank Reed Anticipated date of discharge: 04/18/16 - Patient Status Disposition: Transfer SNF Condition: Good Functional capacity at discharge: uses cane/walker Overall status at discharge: patient is progressing back to baseline - Discharge Instructions Follow Up With: NO,PCP [Primary Care Provider] - - Diet and Activity Activity: resume usual activities as tolerated, wear oxygen at all times Diet: diabetic diet, low fat, low cholesterol, low salt diet, other (renal) Interval History: See below Hospital course: Ms. Madera is a 70 Y/O F Bed-bound, resident of alf re-admission on same day of discharge 04/15 for hypoxic respiratory failure , need for O2, suspected pneumonia by CXR/ Pulmonary vascular congestion She has a PMH of COPD, chronic retainer by CO2 on chem and ABG, CHFpEF, CKD III , Pancytopenia, Morbid Obesity, MDRR She is seen at bedside today Has no complains States dizziness and SOB has resolved She is stable for discharge back to alf on home oxygena nd with antibiotics and [id number] po daily Immunization is UTD See individual diagnosis for more details - Time Spent with Patient Total time spent providing and/or coordinating discharge services: Greater than 30 minutes (35 minutes spent on chart review, face to face encounter, medication reconciliation, prescription for medication and O2) - Constitutional Vitals: Temp Pulse Resp BP Pulse Ox 98.2 F 74 16 109/64 94 L 04/18/16 11:15 04/18/16 11:15 04/18/16 11:15 04/18/16 11:15 04/18/16 11:15 General appearance: Present: A&O X 3, morbidly obese, pleasant, no acute distress, answers questions appropriately - Head Head exam: Present: atraumatic - Eye Eye exam: Present: PERRL, conjuntiva pink, sclera anicteric - ENT ENT exam: Present: mucous membranes moist - Neck Neck exam general surgery: Present: normal inspection - Respiratory Respiratory exam: Present: CTAB - Cardiovascular Cardiovascular exam: Present: RRR, +S1, +S2. Absent: JVD, +S3, systolic murmur - GI/Abdominal GI/Abdominal exam: Present: normal bowel sounds, soft, no peritoneal signs. Absent: tenderness - Extremities Exam Additional comments: Chronic venous stasis changes, pedal edema has improved - Neurological Exam Neurological exam: Present: CN II-XII intact, oriented X3, no focal deficits. Absent: pronater drift, facial droop, speech deficit - Skin Skin exam: Present: dry
[2016-04-18 15:34] VITALS: BP 122/83
[2016-04-18] MEDS ORDERED: levoFLOXacin 750 MG TABLET PO SCH (16:30)
== END 2016-04-18 16:20 | DRG 190 ==
LOC: 3BNU 15:26 → EMEROO 15:26 → 3BNU 19:05 → SUATTDRO 04-16 15:02
PROVIDERS: ADMIT Nurse Practitioner Family; ATTEND Internal Medicine